=== PATIENT | male | born 1995 | race Caucasian/White ===

== ENCOUNTER 2017-06-09 11:32 | Emergency (ER) | payer MEDICAID, SELFPAY ==
[2017-06-09 11:34] VITALS: BP 150/95; PULSE 106; RESP 16; TEMP 36.7; O2SAT 97; BMI 28.4
--- NOTE | 2017-06-09 11:52 | EKG12_ITS ---
Test Reason : MENTAL HEALTH Blood Pressure : / mmHG Vent. Rate : 098 BPM Atrial Rate : 098 BPM P-R Int : 170 ms QRS Dur : 100 ms QT Int : 336 ms P-R-T Axes : 073 059 034 degrees QTc Int : 428 ms Normal sinus rhythm Normal ECG Confirmed by VINNY KAMARA, RITA ([id number]), news video editor GENE ARMSTRONG ([id number]) on 06/12/2017 3:29:45 PM Referred By: HAILY Confirmed By:RITA CASILLAS MD
[2017-06-09 12:16] LABS: Absolute Lymphocyte Count 1.87 X10^3/ul (0.83-4.51); Absolute Neutrophil Count 4.8 X10^3/uL (2.0-7.7); Basophil# 0.07 X10^3/uL; Basophil% 0.9 % (0-1); Eosinophil# 0.14 X10^3/uL; Eosinophils% 1.9 % (0-5); Hemoglobin 15.8 g/dl (13.0-16.5); Lymphocyte # 1.87 X10^3/ul (4.0); Lymphocyte % 25.1 % (19-41); Mean Corp Hgb Conc 35.9 g/gl (32-36); Mean Corpuscular Hgb 29.2 pg (27.0-32.0); Mean Corpuscular Volume 81.3 fL (80-94); Mean Platelet Vol. 9.4 fl (6.2-12.0); Monocyte% 8.1 % (0-10); Neutrophil # 4.76 X10^3/uL (2.7-7.7); Neutrophil % 63.9 % (47-70); POSITIVE COUNT NO; POSITIVE DIFFERENTIAL NO; POSITIVE MORPHOLOGY NO; Platelet Count 221 K/mm3 (150-450); RBC Distribution Width CV 12.4 % (11.6-14.6); RBC Distribution Width SD 37.3 fl (35.1-43.9); Red Blood Count 5.41 M/mm3 (4.6-6.2); White Blood Count 7.5 K/mm3 (4.4-11.0)
[2017-06-09 12:23] LABS: Anion Gap 7 (5-15); BUN 13 mg/dL (7-18); BUN/Creat Ratio 12.9 RATIO (10-20); Calcium,Total 8.5 mg/dL (8.5-10.1); Chloride 108 mmol/L (98-107); Creatinine, Serum 1.01 mg/dL (0.70-1.30); EST Glomerular Filtration Rate 99 mL/min (>60); Est Glom Filt Rate - Afr Amer 120 mL/min (>60); Estimated Creatinine Clearance 126.99 ml/min; Glucose 86 mg/dL (74-106); Potassium 3.5 mmol/L (3.5-5.1); Sodium Level 142 mmol/L (136-145)
[2017-06-09 12:26] LABS: Alcohol, Blood (Medical)-Serum < 3.0 mg/dL
[2017-06-09] MEDS: traZODone 50 MG Tablet 150 MG PO (12:26)
[2017-06-09] MEDS: QUEtiapine 100 MG Tablet 200 MG PO (12:26)
[2017-06-09 12:27] LABS: Amphetamine Urine VISTA POSITIVE (<1000 ng/mL); Barbiturate Urine VISTA NEGATIVE (< 200 ng/mL); Benzodiazepine Urine VISTA NEGATIVE (< 200 ng/mL); Cocaine Urine VISTA NEGATIVE (< 300 ng/mL); Ecstacy Urine VISTA NEGATIVE (< 500 ng/mL); Methadone Urine VISTA NEGATIVE (< 300 ng/mL); PCP Urine VISTA NEGATIVE (< 25 ng/mL); THC Urine VISTA POSITIVE (< 50 ng/mL); Vista UDS pH Range 5
--- NOTE | 2017-06-09 12:45 | PCA ---
called the counseling center
--- NOTE | 2017-06-09 13:04 | ED.DCSUM_ITS ---
- ER Visit Summary Date of Service: 06/09/17 Chief Complaint: [] Auditory hallucinations History of Present Illness: The patient is a 22 M [] with a past medical history of schizophrenia disorder reports that he is not having auditory and visual hallucinations after not taking his schizophrenia medications for the last month. Denies suicidal or homicidal ideation. He reports taking Seroquel and trazodone. Physical Examination: [] Afebrile, vital signs stable. 22-year-old male no acute distress. Cardiovascular exam is regular rate and rhythm. Lungs are clear to auscultation. Abdomen is soft and nontender. Test Results: [] Laboratory work returned normal. Alcohol level negative. Tox screen positive for amphetamines and THC. EKG shows normal sinus rhythm, rate of 98 without ischemia or ectopy. Emergency Department Course and Treatment: [] Patient evaluated and medically cleared for further psychiatric evaluation. Psychiatric liaison has been contacted for further treatment and disposition. Treatment Plan: [] Patient is medically cleared and we are awaiting psychiatric liaison evaluation. Addendum: Psychiatric liaison evaluated the patient and he reports suicidal ideation and a plan to hang himself. Disposition: [] Patient will be transferred to [facility]. Impression: [] Schizoaffective disorder Medication noncompliance Auditory hallucinations Suicidal ideation This note was generated with [employer] dictation software. It may contain incorrect words, spelling, and punctuation that were not noted in review of the chart prior to signing ED Disposition - Plan for ED Patient: Chief Complaint: Mental Health Referrals: Care Physician,No Primary [Primary Care Provider] -
[2017-06-09 13:39] VITALS: BP 142/71; PULSE 92; RESP 14; O2SAT 97
[2017-06-09 16:27] LABS: Bacteria 0 SEEN /hpf (None Seen); Red Blood Cells-Urine 0 SEEN /hpf (0-5); White Blood Cells 0 SEEN /hpf (0-5)
[2017-06-09 16:32] LABS: Color, Urine Yellow (Yellow); Glucose, Dipstick Normal (Normal); Ketone-Dipstick Negative (Negative); Leukocyte Esterase-Dipstick Negative /ul (Negative); Nitrite-Dipstick Negative (Negative); Occult Blood-Urine Negative /ul (Negative); Protein-Dipstick 15 mg/dl (Negative); Urine Bilirubin Dipstick Negative (Negative); Urine Clarity Clear (Clear); Urine Urobilinogen Normal (Normal)
[2017-06-09 16:39] LABS: Mucous, Urine 1+ /hpf (<or=2+); Squamous Epithelial Cells - UA 0-5 SEEN /hpf (0-5)
[2017-06-09 16:40] LABS: Hyaline Cast 0-5 SEEN /lpf (0-5)
[2017-06-09 16:50] LABS: ALB/GLOB Ratio 1.3 RATIO (0.9-2.4); AST(SGOT) 15 U/L (15-37); Alanine Aminotransfer ALT/SGPT 23 U/L (16-61); Albumin, Serum 4.3 g/dL (3.2-5.0); Alkaline Phosphatase 100 U/L (45-117); Globulin 3.3 g/dL (2.2-4.2); Protein, Total 7.6 g/dL (6.4-8.2)
[2017-06-09 17:54] VITALS: BP 130/67; PULSE 93; RESP 16; O2SAT 97
[2017-06-09 22:42] VITALS: PULSE 78; RESP 16; O2SAT 95
[2017-06-10 00:01] VITALS: BP 161/89; PULSE 70; RESP 18; O2SAT 97
[2017-06-10] MEDS: LORazepam 1 MG Tablet PO (01:23)
[2017-06-10 01:24] VITALS: PULSE 71; RESP 16; O2SAT 97
--- NOTE | 2017-06-10 01:25 | NURSING ---
pt lost wrist band unable to scan
[2017-06-10 03:44] VITALS: RESP 14
--- NOTE | 2017-06-10 04:14 | NURSING ---
I TOOK A CALL FROM [facility] AND THEY HAD SAID THAT THEY WOULD CALL AROUND 09:00-09:30 AM IF THEY PT IS ACCEPTED TO [facility] WENT TO LET THE PT KNOW THAT HE WOULD BE HERE UNTIL THE MORNING AND THAT [facility] WOULD CALL WITH ACCEPTANCE IN THE MORNING. THE PT WAS UNAWARE THAT HE WAS GOING TO [facility] AND THAT HE WAS PINK SLIPPED TO THERE. THE PT STARTED TO FREAK OUT AND THREATEN TO LEAVE AND LET HIM KNOW THAT HE COULD NOT DUE TO HIS PINK SLIP. ELIOT AND I DISCUSSED WITH THE PT HIS CONCERNS AND ATTEMPTED TO CALM HIM DOWN. CRISIS WAS HERE AT THE TIME AND REFUSED TO RETALK TO HIM SINCE A DIFFERENT STOCK SUPERVISOR PINK SLIPPED HIM TO [facility]. THE PT STATED THAT HE WAS NOT SUICIDAL AND WAS ONLY HERE FOR HIS MEDICATIONS. PT STATED THAT FOR THE FIRST PART OF HIS TIME HERE HE WAS NOT EVEN PUT IN A GOWN OR MENTIONED TO THE NURSE THAT HE WAS SUICIDAL. WHEN TALKING TO HIM AGAIN STATING THAT THERE WAS NOTHING ELSE WE COULD DO ON OUR PART, HE GOT VERY AGITATED/ TEARFUL. THERAPEUTICALLY TALKED WITH THE PT CALMED HIM DOWN, GAVE HIM A ATIVAN, AND HAS BEEN RESTING SINCE. PT STILL IS A FLIGHT RISK.
[2017-06-10 06:19] VITALS: RESP 14
[2017-06-10 07:24] VITALS: PULSE 79; RESP 18; O2SAT 100
--- NOTE | 2017-06-10 07:25 | ED.RN ---
THIS NURSE IN SPEAKING WITH THE PT. BREAKFAST TRAY GIVEN. CONFIRMED MEDICATIONS THAT HE STATES I TAKE THOSE AT BEDTIME. THIS NURSE INFORMED THE PT WE WOULD BE PAGING THE [facility]SEL[facility] AROUND 8AM TO SPEAK WITH THEM ABOUT THE PT. PT DENIES SUICIDAL IDEATION TO THIS NURSE
--- NOTE | 2017-06-10 08:02 | ED.RN ---
KEREN WITH CRISIS SPOKE WITH RN KERON; STATED SHE IS CHECKING STATUS WITH [facility]. WILL CALL US WITH AN UPDATE
[2017-06-10 08:16] VITALS: BP 142/79; PULSE 78; RESP 18; O2SAT 100
--- NOTE | 2017-06-10 08:32 | ED.RN ---
BELONGINGS, 1 BLACK BALL CAP, 1 BLACK LETHER JACKET, 1 BLACK SHIRT, 1 PAIR BLUE/BLACK PJ PANTS, 1 PAIR ARMY PANTS, 1 PAIR RED WING BOOTS SIZE 14
--- NOTE | 2017-06-10 08:49 | ED.RN ---
PT BELONGINGS SENT WITH TRANSPORT CREW
== END 2017-06-10 08:49 | disposition home or self-care (01) ==
PROVIDERS: Emergency Provider Emergency Medicine
DX: F25.9 Schizoaffective disorder, unspecified (principal); Z91.14 Patient's other noncompliance with medication regimen; R45.851 Suicidal ideations; Z72.0 Tobacco use
CPT/HCPCS: 36415; 80048; 80053; 80307; 80320; 81001; 85025; 93005; 99284; G0480

== ENCOUNTER 2017-07-29 11:18 | Inpatient (IN) | payer MEDICAID, SELFPAY ==
[2017-07-29] VITALS (13 sets, daily range): BP systolic 109–139; BP diastolic 69–109; PULSE 23–128; RESP 18–99; TEMP 36.7–37.2; O2SAT 96–99; BMI 33.5; BMI 29.9
--- NOTE | 2017-07-29 11:39 | CT_ITS ---
STUDY: CT BRAIN WITHOUT CONTRAST REASON FOR EXAM: Male, 22 years old. Confusion, overdose RADIATION DOSAGE (If Supplied By Facility): CTDIvol = ( 44.99 ) mGy, DLP = ( 1592.22 ) mGycm TECHNIQUE: Transaxial CT imaging of the brain was performed without administration of intravenous contrast material. Individualized dose optimization techniques were used for this CT. COMPARISON: 2011 FINDINGS: Normal soft tissue structures. Normal calvarium. Normal size ventricles and extra-axial spaces for the patient's age. Normal white matter tracts of the cerebral hemispheres. Normal basal ganglia and thalami. Normal brainstem. Normal cerebellum. There is no intracranial hemorrhage. There are no findings of an acute ischemic infarction. Normal visualized paranasal sinuses. CT/Brain/Head without Contrast IMPRESSION: Normal unenhanced CT scan of the brain. Electronically Signed: Bishop Duran MD at 12:18 EDT , Service support ,
[2017-07-29 12:13] LABS: Absolute Lymphocyte Count 2.04 X10^3/ul (0.83-4.51); Basophil# 0.03 X10^3/uL; Basophil% 0.2 % (0-1); Eosinophil# 0.01 X10^3/uL; Eosinophils% 0.1 % (0-5); Hematocrit 49.9 % (40-54); Hemoglobin 17.7 g/dl (13.0-16.5); Lymphocyte # 2.04 X10^3/ul (4.0); Lymphocyte % 11.8 % (19-41); Mean Corp Hgb Conc 35.5 g/gl (32-36); Mean Corpuscular Hgb 29.3 pg (27.0-32.0); Mean Corpuscular Volume 82.6 fL (80-94); Mean Platelet Vol. 9.4 fl (6.2-12.0); Monocyte# 1.17 X10^3/uL; Monocyte% 6.8 % (0-10); Neutrophil # 14.01 X10^3/uL (2.7-7.7); Neutrophil % 80.9 % (47-70); Platelet Count 238 K/mm3 (150-450); RBC Distribution Width CV 13.4 % (11.6-14.6); RBC Distribution Width SD 40.3 fl (35.1-43.9); Red Blood Count 6.04 M/mm3 (4.6-6.2); White Blood Count 17.3 K/mm3 (4.4-11.0)
[2017-07-29 12:19] LABS: Differential Indicated SCAN CRITERIA MET; POSITIVE COUNT NO; POSITIVE DIFFERENTIAL NO; POSITIVE MORPHOLOGY YES
[2017-07-29 12:43] LABS: ALB/GLOB Ratio 1.2 RATIO (0.9-2.4); AST(SGOT) 1251 U/L (15-37); Alanine Aminotransfer ALT/SGPT 284 U/L (16-61); Albumin, Serum 4.6 g/dL (3.2-5.0); Alkaline Phosphatase 124 U/L (45-117); Anion Gap 11 (5-15); BUN 30 mg/dL (7-18); BUN/Creat Ratio 19.2 RATIO (10-20); Calcium,Total 9.6 mg/dL (8.5-10.1); Chloride 108 mmol/L (98-107); Creatinine, Serum 1.56 mg/dL (0.70-1.30); EST Glomerular Filtration Rate 60 mL/min (>60); Est Glom Filt Rate - Afr Amer 72 mL/min (>60); Estimated Creatinine Clearance 79.78 ml/min; Glucose 98 mg/dL (74-106); Potassium 4.8 mmol/L (3.5-5.1); Protein, Total 8.6 g/dL (6.4-8.2); Sodium Level 139 mmol/L (136-145)
[2017-07-29 13:01] LABS: Amphetamine Urine VISTA POSITIVE (<1000 ng/mL); Barbiturate Urine VISTA NEGATIVE (< 200 ng/mL); Benzodiazepine Urine VISTA POSITIVE (< 200 ng/mL); Cocaine Urine VISTA NEGATIVE (< 300 ng/mL); Ecstacy Urine VISTA POSITIVE (< 500 ng/mL); Methadone Urine VISTA NEGATIVE (< 300 ng/mL); PCP Urine VISTA NEGATIVE (< 25 ng/mL); THC Urine VISTA POSITIVE (< 50 ng/mL); Vista UDS pH Range 5
[2017-07-29 13:04] LABS: Alcohol, Blood (Medical)-Serum < 3.0 mg/dL
--- NOTE | 2017-07-29 13:12 | EKG12_ITS ---
Test Reason : OD Blood Pressure : / mmHG Vent. Rate : 123 BPM Atrial Rate : 123 BPM P-R Int : 144 ms QRS Dur : 092 ms QT Int : 302 ms P-R-T Axes : 074 080 036 degrees QTc Int : 432 ms Sinus tachycardia Right atrial enlargement Borderline ECG Confirmed by REMY KAMARA, VIOLET ([id number]), newspaper editor managing GENE ARMSTRONG ([id number]) on 07/31/2017 9:08:57 AM Referred By: GENNA/NEELA Confirmed By:VIOLET ALBERTO MD
--- NOTE | 2017-07-29 13:20 | RAD_ITS ---
STUDY: X-RAY CHEST REASON FOR EXAM: Male, 22 years old. Possible overdose, patient unresponsive TECHNIQUE: Single AP portable view of the chest. COMPARISON: 2011 FINDINGS: EKG leads overlie the chest The lungs are clear and expanded. There is no demonstrated pleural abnormality. Normal size heart. Normal mediastinum and justen. Normal visualized pulmonary arteries. Normal visualized aortic arch and descending thoracic aorta. Normal visualized thoracic spine. Normal visualized ribs, clavicles, and shoulders. There is no demonstrated abnormality of the visualized soft tissue structures of the upper abdomen. RAD/Chest 1 View (Portable) IMPRESSION: Normal x-ray examination of the chest. Electronically Signed: Bishop Duran MD at 13:45 EDT , Service support ,
[2017-07-29 13:22] LABS: Acetaminophen (Tylenol) Level < 2.0 ug/mL (10.0-30.0)
[2017-07-29] MEDS: 0.9% Normal Saline 1,000 ML 999 ML IV ×3 (13:54→16:23)
[2017-07-29 14:29] LABS: Lactic Acid 1.1 mmol/L (0.4-2.0)
--- NOTE | 2017-07-29 15:38 | ED.RN ---
pt STATES HE'S HURTING EVERYWHERE. AWARE OF PAIN. PENDING ADMISSION. MOM IS AT BEDSIDE FEEDING PT.
--- NOTE | 2017-07-29 16:03 | ED.DCSUM_ITS ---
- ER Visit Summary Date of Service: 07/29/17 Chief Complaint: Seroquel overdose History of Present Illness: The patient is a 22 M who reports that he took 4-5 Seroquel yesterday. He states this was not in an attempt to harm himself. History is limited as the patient has rapid mumbling speech and is very difficult to understand. He does admit to auditory and visual hallucinations which are chronic. He denies recent illness such as fever chest pain shortness of breath vomiting diarrhea. He denies any pain currently. Family member also vocalize concern for stimulant abuse as he has a history of this. Physical Examination: Heart rate 128 vitals otherwise unremarkable Heart regular rhythm tachycardia Lungs are clear Abdomen soft Extremities nontender Alert he does not appear to have any focal or lateralizing neurological deficits Patient has rapid pressured mumbling speech Test Results: EKG shows sinus tachycardia at a rate of 123. His laboratory studies are notable for white blood cell count of 17.3. Creatinine is 1.56. Total bilirubin 1.2 and AST 1251. ALT 284. Alcohol negative. Salicylates and acetaminophen levels are normal. Urine drug screen positive for amphetamines, methamphetamine, benzodiazepines, cannabinoids. Lactic acid is normal. Creatinine kinase is pending at the time of this dictation but lab has stated that they have had to multiple dilutions and do not have an ETA yet on results. CT the head is normal. Chest x-ray is normal. Emergency Department Course and Treatment: I suspect the patient's cytosis is an acute phase reactant. Although we do not yet have a definite number we know it is significantly elevated on his creatinine kinase. He also has elevation in his creatinine. I suspect this is due to acute rhabdomyolysis likely related to drug abuse and methamphetamine abuse. He has been treated with aggressive IV fluids. He will require hospitalization. We will also likely need a right upper quadrant ultrasound in regards to his elevated LFTs Tylenol was normal. Treatment Plan: [] Disposition: Admit Impression: Rhabdomyolysis Polysubstance abuse Elevated LFTs This note was generated with [employer] dictation software. It may contain incorrect words, spelling, and punctuation that were not noted in review of the chart prior to signing ED Disposition - Plan for ED Patient: Chief Complaint: Overdose Referrals: Care Physician,No Primary [Primary Care Provider] -
--- NOTE | 2017-07-29 16:05 | ED.RN ---
ck [id number], md mar.
--- NOTE | 2017-07-29 16:35 | PCM.HP.STD ---
Problem List (1) Acute kidney injury Status: Acute (2) Drug overdose, multiple drugs Status: Acute (3) Rhabdomyolysis Status: Acute (4) Depression Status: Chronic (5) Schizophrenia Status: Chronic History of Present Illness Date of Admission: 07/29/17 Chief Complaint: Overdosing on Seroquel. The patient is a 22 year old M with past medical history as mentioned above presented to the emergency room because he took 4-5 pills of Seroquel yesterday. At this time, patient is alert and oriented ?3. He was talking super fast and he was not able to provide good history. He mentioned that he took 4-5 pills of Seroquel last night because he was trying to sleep. Patient has been mumbling incoherent words that is difficult to understand. He did mention that he has been having chronic hallucinations. His brother was at the bedside and he did mention that the patient has been using drugs including amphetamines and he has been smoking pot. At this time, patient denies any chest pain or shortness of breath. He reported vague mild lower abdominal pain. Denied nausea or vomiting. Denies fever chills. He had a history of schizophrenia and he has been on Seroquel. He has history of depression and he has been on trazodone. His brother mentioned that he has been using street drugs for quite some time but the patient himself denied using any drugs. In the emergency department, patient was tachycardic, blood pressure stable, afebrile and pulse ox maintained on room air. Routine blood work was remarkable for leukocytosis, BUN of 30, creatinine of 1.56. His LFT revealed elevated total bilirubin as well as liver transaminases and slightly elevated alkaline phosphatase. His total creatine phosphokinase is 37,057. Urine drug screen was positive for amphetamines, methamphetamines, benzodiazepines and cannabinoids. Blood alcohol level was less than 3. CT scan brain showed no acute findings. Chest x-ray showed no acute infiltrate, consolidation or effusion. EKG revealed sinus tachycardia, otherwise normal. He is being admitted for polysubstance overdose, rhabdomyolysis and acute kidney injury. Past Medical History Past Medical History (Chronic Problems): Chronic Problems Depression (Chronic) Schizophrenia (Chronic) Allergies Penicillins Allergy (Verified 07/29/17 11:24) Hives Sulfa (Sulfonamide Antibiotics) Allergy (Verified 07/29/17 11:24) Hives Home Medications: Ambulatory Orders Medication Instructions Recorded Quetiapine Fumarate [Seroquel] 800 mg PO QHS 07/29/17 Trazodone HCl 150 mg PO PRN PRN 07/29/17 Surgical History: no surgical history Psychiatric History: Depression, Schizophrenia Smoking Status: Current every day smoker Tobacco Use: Cigarettes Alcohol: None Drugs: Marijuana - *Family History Maternal History Items: No pertinent history Paternal History Items: No pertinent history Review of Systems Constitutional: Denies: Anorexia, Chills, Fever, Weakness Eyes: Denies: Blurred vision, Double vision, Redness HEENT: Denies: Difficulty Hearing, Ear Pain, Eye Pain, Nasal Congestion, Sore Throat Cardiovascular: Denies: Chest Pain, Chest Tightness, Edema, Palpitations, Syncope Respiratory: Denies: Cough, Pleuritic Pain, Shortness of Breath, Sputum production, Wheezing Gastrointestinal: Reports: Abdominal Pain. Denies: Constipation, Diarrhea, Nausea, Vomiting Genitourinary: Denies: Dysuria, Frequency, Hematuria Musculoskeletal: Denies: Arm Pain, Back Pain, Foot Pain Skin: Denies: Dryness, Rash Neurological: Denies: Balance problems, Change in Speech, Slurred speech, Confusion, Focal weakness, Headaches, Incoordination Psychiatric: Reports: Depression. Denies: Anxiety, Homicidal Ideations, Suicidal Ideations Endocrine: Denies: Change in Body Habitus, Polydipsia VTE Information - Inpt Only VTE Present on Admission: No VTE Mechan Device Prophylaxis: None VTE Pharm Prophylaxis ordered?: Yes Patient Problems: Active and Suspected Problems Acute kidney injury (Acute) Drug overdose, multiple drugs (Acute) Rhabdomyolysis (Acute) - Physical Exam General: Alert, Oriented x3, Cooperative, No apparent distress HEENT: Atraumatic, PERRLA, EOMI Oral: Moist Mucosa, No Gingival or Mucosal Lesions/ Ulcerations Neck: Supple, No JVD, Negative Carotid Bruits, Trachea Midline, Thyroid Normal Size and Texture Lungs: Clear to auscultation, No rhonchi, No wheeze, No rales, Diminished Cardiovascular: Regular rate, Regular Rhythm, Normal S1, Normal S2, No murmurs, PMI Normal, Tachycardic Abdomen: Bowel Sounds Present, Soft, Non Tender, Non-Distended, No Hepato-splenomegaly, Tender - No guarding or rigidity. Extremities: No clubbing, No cyanosis, No edema Skin: No rashes, No breakdown Lymphatic: No Cervical, Supraclavicular, or Inguinal Adenopathy Neurological: Cranial nerves II-XII grossly intact, Motor Exam 5/5 strength throughout Psych/Mental Status: Anxious, Impulsive, Alert and oriented to time, place, person, mood and affect Vital Signs Temp Pulse Resp BP Pulse Ox 98.1 F 116 H 19 H 109/90 H 97 07/29/17 11:21 07/29/17 16:25 07/29/17 16:25 07/29/17 16:25 07/29/17 16:25 Oxygen Flow Rate (L/min) 2 Oxygen Delivery Method Room Air Weight: 240 lb Body Mass Index (BMI) 33.5 Laboratory Tests Past 24 Hrs 07/29/17 07/29/17 07/29/17 12:01 12:01 12:01 WBC 17.3 H RBC 6.04 Hgb 17.7 H Hct 49.9 MCV 82.6 MCH 29.3 MCHC 35.5 RDW 13.4 RDW Differential 40.3 Plt Count 238 MPV 9.4 Immature Gran % (Auto) 0.200 Neut % (Auto) 80.9 H Lymph % (Auto) 11.8 L Long % (Auto) 6.8 Eos % (Auto) 0.1 Baso % (Auto) 0.2 Absolute Neuts (auto) 14.0 H Absolute Lymphs (auto) 2.04 Total Counted Not Reportable Sodium 139 Potassium 4.8 Chloride 108 H Carbon Dioxide 20.0 L Anion Gap 11 BUN 30 H Creatinine 1.56 H Estim Creat Clear Calc 79.78 Est GFR (MDRD) Af Amer 72 Est GFR (MDRD) Non-Af 60 BUN/Creatinine Ratio 19.2 Glucose 98 Lactic Acid Calcium 9.6 Total Bilirubin 1.20 H AST 1251 H ALT 284 H Alkaline Phosphatase 124 H Total Creatine Kinase Total Protein 8.6 H Albumin 4.6 Globulin 4.0 Albumin/Globulin Ratio 1.2 Salicylates Urine Opiates Screen Urine Methadone Screen Acetaminophen Ur Barbiturates Screen Ur Phencyclidine Scrn Ur Amphetamines Screen U Methamphetamin-MDMA U Benzodiazepines Scrn Urine Cocaine Screen U Cannabinoids Screen Ur Drug Screen Comment Ethyl Alcohol < 3.0 07/29/17 07/29/17 07/29/17 12:01 12:20 13:56 WBC RBC Hgb Hct MCV MCH MCHC RDW RDW Differential Plt Count MPV Immature Gran % (Auto) Neut % (Auto) Lymph % (Auto) Long % (Auto) Eos % (Auto) Baso % (Auto) Absolute Neuts (auto) Absolute Lymphs (auto) Total Counted Sodium Potassium Chloride Carbon Dioxide Anion Gap BUN Creatinine Estim Creat Clear Calc Est GFR (MDRD) Af Amer Est GFR (MDRD) Non-Af BUN/Creatinine Ratio Glucose Lactic Acid Calcium Total Bilirubin AST ALT Alkaline Phosphatase Total Creatine Kinase 87532 H Total Protein Albumin Globulin Albumin/Globulin Ratio Salicylates 2.0 L Urine Opiates Screen NEGATIVE Urine Methadone Screen NEGATIVE Acetaminophen < 2.0 L Ur Barbiturates Screen NEGATIVE Ur Phencyclidine Scrn NEGATIVE Ur Amphetamines Screen POSITIVE H U Methamphetamin-MDMA POSITIVE H U Benzodiazepines Scrn POSITIVE H Urine Cocaine Screen NEGATIVE U Cannabinoids Screen POSITIVE H Ur Drug Screen Comment Ethyl Alcohol 07/29/17 13:56 WBC RBC Hgb Hct MCV MCH MCHC RDW RDW Differential Plt Count MPV Immature Gran % (Auto) Neut % (Auto) Lymph % (Auto) Long % (Auto) Eos % (Auto) Baso % (Auto) Absolute Neuts (auto) Absolute Lymphs (auto) Total Counted Sodium Potassium Chloride Carbon Dioxide Anion Gap BUN Creatinine Estim Creat Clear Calc Est GFR (MDRD) Af Amer Est GFR (MDRD) Non-Af BUN/Creatinine Ratio Glucose Lactic Acid 1.1 Calcium Total Bilirubin AST ALT Alkaline Phosphatase Total Creatine Kinase Total Protein Albumin Globulin Albumin/Globulin Ratio Salicylates Urine Opiates Screen Urine Methadone Screen Acetaminophen Ur Barbiturates Screen Ur Phencyclidine Scrn Ur Amphetamines Screen U Methamphetamin-MDMA U Benzodiazepines Scrn Urine Cocaine Screen U Cannabinoids Screen Ur Drug Screen Comment Ethyl Alcohol Clinical Impression(s) from Imaging Studies Brain CT 07/29/17 11:39 IMPRESSION: Normal unenhanced CT scan of the brain. Electronically Signed: Bishop Duran MD at 12:18 EDT , Service support , Chest X-Ray 07/29/17 13:20 IMPRESSION: Normal x-ray examination of the chest. Electronically Signed: Bishop Duran MD at 13:45 EDT , Service support , Assessment/Plan Active and Suspected Problems Acute kidney injury (Acute) Drug overdose, multiple drugs (Acute) Rhabdomyolysis (Acute) This is a 22 years old male patient brought to the emergency room because he overdosed on Seroquel, found to have polysubstance overdose, abnormalities and acute kidney injury. #1 multidrug overdose/Seroquel overdose: Urine drug screen was positive for amphetamines, methamphetamines, benzodiazepines and cannabinoids. Patient is awake and oriented ?3, tachycardic, blood pressure stable and maintained pulse ox on room air. EKG revealed sinus tachycardia, otherwise normal. CT scan brain without acute findings. Plan: Admit to PCU, cardiac monitoring, one on one observation, IV Ativan as needed, IV fluids, repeat CBC and CMP tomorrow morning. #2 rhabdomyolysis: CPK was highly elevated on admission and Seroquel can cause rhabdomyolysis. Plan: Generous IV fluids for hydration, input output chart, Tylenol as needed for pain, IV antiemetics, repeat CMP and CPK tomorrow morning, PT OT evaluation and treatment. #3 acute kidney injury: Secondary to #2. Plan as above, IV fluids, input output chart, repeat CMP tomorrow morning. Baseline kidney function is normal. #4 elevated LFT: Unclear etiology but it could be due to Seroquel. Blood alcohol level was normal. Plan as above, repeat LFTs tomorrow morning. Patient denied any right upper quadrant abdominal pain. If his LFT did not improve with IV fluids and stopping Seroquel, may need to consider ultrasound gallbladder and liver. #5 schizophrenia/depression: Hold trazodone and Seroquel. Plan for evaluation by mental crisis when medically stable. #6 drug abuse: According to patient's brother, patient has been using amphetamines and smoking pot. The patient himself denied using drugs. Plan as above. #7 DVT prophylaxis: Subcu heparin. This note was generated with [employer] dictation software. It may contain incorrect words, spelling, and punctuation that were not noted in checking the note before signing. Code Visit Inpatient E&M: 75448 Init Hosp L3
--- NOTE | 2017-07-29 16:41 | HP.PCM_ITS ---
Problem List (1) Acute kidney injury Status: Acute (2) Drug overdose, multiple drugs Status: Acute (3) Rhabdomyolysis Status: Acute (4) Depression Status: Chronic (5) Schizophrenia Status: Chronic History of Present Illness Date of Admission: 07/29/17 Chief Complaint: Overdosing on Seroquel. The patient is a 22 year old M with past medical history as mentioned above presented to the emergency room because he took 4-5 pills of Seroquel yesterday. At this time, patient is alert and oriented ?3. He was talking super fast and he was not able to provide good history. He mentioned that he took 4-5 pills of Seroquel last night because he was trying to sleep. Patient has been mumbling incoherent words that is difficult to understand. He did mention that he has been having chronic hallucinations. His brother was at the bedside and he did mention that the patient has been using drugs including amphetamines and he has been smoking pot. At this time, patient denies any chest pain or shortness of breath. He reported vague mild lower abdominal pain. Denied nausea or vomiting. Denies fever chills. He had a history of schizophrenia and he has been on Seroquel. He has history of depression and he has been on trazodone. His brother mentioned that he has been using street drugs for quite some time but the patient himself denied using any drugs. In the emergency department, patient was tachycardic, blood pressure stable, afebrile and pulse ox maintained on room air. Routine blood work was remarkable for leukocytosis, BUN of 30, creatinine of 1.56. His LFT revealed elevated total bilirubin as well as liver transaminases and slightly elevated alkaline phosphatase. His total creatine phosphokinase is 37,057. Urine drug screen was positive for amphetamines, methamphetamines, benzodiazepines and cannabinoids. Blood alcohol level was less than 3. CT scan brain showed no acute findings. Chest x-ray showed no acute infiltrate, consolidation or effusion. EKG revealed sinus tachycardia, otherwise normal. He is being admitted for polysubstance overdose, rhabdomyolysis and acute kidney injury. Past Medical History Past Medical History (Chronic Problems): Chronic Problems Depression (Chronic) Schizophrenia (Chronic) Allergies Penicillins Allergy (Verified 07/29/17 11:24) Hives Sulfa (Sulfonamide Antibiotics) Allergy (Verified 07/29/17 11:24) Hives Home Medications: Ambulatory Orders Medication Instructions Recorded Quetiapine Fumarate [Seroquel] 800 mg PO QHS 07/29/17 Trazodone HCl 150 mg PO PRN PRN 07/29/17 Surgical History: no surgical history Psychiatric History: Depression, Schizophrenia Smoking Status: Current every day smoker Tobacco Use: Cigarettes Alcohol: None Drugs: Marijuana - *Family History Maternal History Items: No pertinent history Paternal History Items: No pertinent history Review of Systems Constitutional: Denies: Anorexia, Chills, Fever, Weakness Eyes: Denies: Blurred vision, Double vision, Redness HEENT: Denies: Difficulty Hearing, Ear Pain, Eye Pain, Nasal Congestion, Sore Throat Cardiovascular: Denies: Chest Pain, Chest Tightness, Edema, Palpitations, Syncope Respiratory: Denies: Cough, Pleuritic Pain, Shortness of Breath, Sputum production, Wheezing Gastrointestinal: Reports: Abdominal Pain. Denies: Constipation, Diarrhea, Nausea, Vomiting Genitourinary: Denies: Dysuria, Frequency, Hematuria Musculoskeletal: Denies: Arm Pain, Back Pain, Foot Pain Skin: Denies: Dryness, Rash Neurological: Denies: Balance problems, Change in Speech, Slurred speech, Confusion, Focal weakness, Headaches, Incoordination Psychiatric: Reports: Depression. Denies: Anxiety, Homicidal Ideations, Suicidal Ideations Endocrine: Denies: Change in Body Habitus, Polydipsia VTE Information - Inpt Only VTE Present on Admission: No VTE Mechan Device Prophylaxis: None VTE Pharm Prophylaxis ordered?: Yes Patient Problems: Active and Suspected Problems Acute kidney injury (Acute) Drug overdose, multiple drugs (Acute) Rhabdomyolysis (Acute) - Physical Exam General: Alert, Oriented x3, Cooperative, No apparent distress HEENT: Atraumatic, PERRLA, EOMI Oral: Moist Mucosa, No Gingival or Mucosal Lesions/ Ulcerations Neck: Supple, No JVD, Negative Carotid Bruits, Trachea Midline, Thyroid Normal Size and Texture Lungs: Clear to auscultation, No rhonchi, No wheeze, No rales, Diminished Cardiovascular: Regular rate, Regular Rhythm, Normal S1, Normal S2, No murmurs, PMI Normal, Tachycardic Abdomen: Bowel Sounds Present, Soft, Non Tender, Non-Distended, No Hepato- splenomegaly, Tender - No guarding or rigidity. Extremities: No clubbing, No cyanosis, No edema Skin: No rashes, No breakdown Lymphatic: No Cervical, Supraclavicular, or Inguinal Adenopathy Neurological: Cranial nerves II-XII grossly intact, Motor Exam 5/5 strength throughout Psych/Mental Status: Anxious, Impulsive, Alert and oriented to time, place, person, mood and affect Vital Signs Temp Pulse Resp BP Pulse Ox 98.1 F 116 H 19 H 109/90 H 97 07/29/17 11:21 07/29/17 16:25 07/29/17 16:25 07/29/17 16:25 07/29/17 16:25 Oxygen Flow Rate (L/min) 2 Oxygen Delivery Method Room Air Weight: 240 lb Body Mass Index (BMI) 33.5 Laboratory Tests Past 24 Hrs 07/29/17 07/29/17 07/29/17 12:01 12:01 12:01 WBC 17.3 H RBC 6.04 Hgb 17.7 H Hct 49.9 MCV 82.6 MCH 29.3 MCHC 35.5 RDW 13.4 RDW Differential 40.3 Plt Count 238 MPV 9.4 Immature Gran % (Auto) 0.200 Neut % (Auto) 80.9 H Lymph % (Auto) 11.8 L [place] % (Auto) 6.8 Eos % (Auto) 0.1 Baso % (Auto) 0.2 Absolute Neuts (auto) 14.0 H Absolute Lymphs (auto) 2.04 Total Counted Not Reportable Sodium 139 Potassium 4.8 Chloride 108 H Carbon Dioxide 20.0 L Anion Gap 11 BUN 30 H Creatinine 1.56 H Estim Creat Clear Calc 79.78 Est GFR (MDRD) Af Amer 72 Est GFR (MDRD) Non-Af 60 BUN/Creatinine Ratio 19.2 Glucose 98 Lactic Acid Calcium 9.6 Total Bilirubin 1.20 H AST 1251 H ALT 284 H Alkaline Phosphatase 124 H Total Creatine Kinase Total Protein 8.6 H Albumin 4.6 Globulin 4.0 Albumin/Globulin Ratio 1.2 Salicylates Urine Opiates Screen Urine Methadone Screen Acetaminophen Ur Barbiturates Screen Ur Phencyclidine Scrn Ur Amphetamines Screen U Methamphetamin-MDMA U Benzodiazepines Scrn Urine Cocaine Screen U Cannabinoids Screen Ur Drug Screen Comment Ethyl Alcohol < 3.0 07/29/17 07/29/17 07/29/17 12:01 12:20 13:56 WBC RBC Hgb Hct MCV MCH MCHC RDW RDW Differential Plt Count MPV Immature Gran % (Auto) Neut % (Auto) Lymph % (Auto) [place] % (Auto) Eos % (Auto) Baso % (Auto) Absolute Neuts (auto) Absolute Lymphs (auto) Total Counted Sodium Potassium Chloride Carbon Dioxide Anion Gap BUN Creatinine Estim Creat Clear Calc Est GFR (MDRD) Af Amer Est GFR (MDRD) Non-Af BUN/Creatinine Ratio Glucose Lactic Acid Calcium Total Bilirubin AST ALT Alkaline Phosphatase Total Creatine Kinase 48878 H Total Protein Albumin Globulin Albumin/Globulin Ratio Salicylates 2.0 L Urine Opiates Screen NEGATIVE Urine Methadone Screen NEGATIVE Acetaminophen < 2.0 L Ur Barbiturates Screen NEGATIVE Ur Phencyclidine Scrn NEGATIVE Ur Amphetamines Screen POSITIVE H U Methamphetamin-MDMA POSITIVE H U Benzodiazepines Scrn POSITIVE H Urine Cocaine Screen NEGATIVE U Cannabinoids Screen POSITIVE H Ur Drug Screen Comment Ethyl Alcohol 07/29/17 13:56 WBC RBC Hgb Hct MCV MCH MCHC RDW RDW Differential Plt Count MPV Immature Gran % (Auto) Neut % (Auto) Lymph % (Auto) [place] % (Auto) Eos % (Auto) Baso % (Auto) Absolute Neuts (auto) Absolute Lymphs (auto) Total Counted Sodium Potassium Chloride Carbon Dioxide Anion Gap BUN Creatinine Estim Creat Clear Calc Est GFR (MDRD) Af Amer Est GFR (MDRD) Non-Af BUN/Creatinine Ratio Glucose Lactic Acid 1.1 Calcium Total Bilirubin AST ALT Alkaline Phosphatase Total Creatine Kinase Total Protein Albumin Globulin Albumin/Globulin Ratio Salicylates Urine Opiates Screen Urine Methadone Screen Acetaminophen Ur Barbiturates Screen Ur Phencyclidine Scrn Ur Amphetamines Screen U Methamphetamin-MDMA U Benzodiazepines Scrn Urine Cocaine Screen U Cannabinoids Screen Ur Drug Screen Comment Ethyl Alcohol Clinical Impression(s) from Imaging Studies Brain CT 07/29/17 11:39 IMPRESSION: Normal unenhanced CT scan of the brain. Electronically Signed: Bishop Duran MD at 12:18 EDT , Service support , Chest X-Ray 07/29/17 13:20 IMPRESSION: Normal x-ray examination of the chest. Electronically Signed: Bishop Duran MD at 13:45 EDT , Service support , Assessment/Plan Active and Suspected Problems Acute kidney injury (Acute) Drug overdose, multiple drugs (Acute) Rhabdomyolysis (Acute) This is a 22 years old male patient brought to the emergency room because he overdosed on Seroquel, found to have polysubstance overdose, abnormalities and acute kidney injury. #1 multidrug overdose/Seroquel overdose: Urine drug screen was positive for amphetamines, methamphetamines, benzodiazepines and cannabinoids. Patient is awake and oriented ?3, tachycardic, blood pressure stable and maintained pulse ox on room air. EKG revealed sinus tachycardia, otherwise normal. CT scan brain without acute findings. Plan: Admit to PCU, cardiac monitoring, one on one observation, IV Ativan as needed, IV fluids, repeat CBC and CMP tomorrow morning. #2 rhabdomyolysis: CPK was highly elevated on admission and Seroquel can cause rhabdomyolysis. Plan: Generous IV fluids for hydration, input output chart, Tylenol as needed for pain, IV antiemetics, repeat CMP and CPK tomorrow morning , PT OT evaluation and treatment. #3 acute kidney injury: Secondary to #2. Plan as above, IV fluids, input output chart, repeat CMP tomorrow morning. Baseline kidney function is normal. #4 elevated LFT: Unclear etiology but it could be due to Seroquel. Blood alcohol level was normal. Plan as above, repeat LFTs tomorrow morning. Patient denied any right upper quadrant abdominal pain. If his LFT did not improve with IV fluids and stopping Seroquel, may need to consider ultrasound gallbladder and liver. #5 schizophrenia/depression: Hold trazodone and Seroquel. Plan for evaluation by mental crisis when medically stable. #6 drug abuse: According to patient's brother, patient has been using amphetamines and smoking pot. The patient himself denied using drugs. Plan as above. #7 DVT prophylaxis: Subcu heparin. This note was generated with [employer] dictation software. It may contain incorrect words, spelling, and punctuation that were not noted in checking the note before signing. Code Visit Inpatient E&M: 23278 Init Hosp L3
--- NOTE | 2017-07-29 18:36 | ED.RN ---
PT found sitting at the end of bed with IV pulled. Tubing still in arm, IV was removed at hub. IV reconnected. Blood spatter all over room. PT cleaned as much as possible, new gown etc. Room spot cleaned. PT stated he needed to have BM and was trying to use restroom.
--- NOTE | 2017-07-29 19:09 | NURSING ---
Pt able to answer some questions understandably, like usual weight and height. Pt mumbles a lot of words and laughs. Oriented pt to call light and to use call light for assistance.
[2017-07-29 19:15] LABS: International Normalized Ratio 1.2; Prothrombin Time (Protime)PT. 14.8 SECONDS (11.7-14.9)
[2017-07-29] MEDS: 0.9% Normal Saline 1,000 ML 150 ML IV (19:49)
[2017-07-29] MEDS: Heparin Injection (Vial) 5,000 UNIT/ML VIAL 5000 UNIT SC (21:38)
[2017-07-29] MEDS: LORazepam 2 MG/ML Syringe 1 MG IV (22:25)
[2017-07-29] MEDS: 0.9% NaCl Peripheral Flush Adult/Peds IV (22:26)
[2017-07-29] MEDS: Acetaminophen 325 MG Tablet 650 MG PO (22:28)
[2017-07-30] VITALS (13 sets, daily range): BP systolic 126–142; BP diastolic 61–81; PULSE 94–113; RESP 16–18; TEMP 36.8–37.7; O2SAT 95–98
[2017-07-30] MEDS: 0.9% Normal Saline 1,000 ML 150 ML IV ×4 (02:28→21:55)
[2017-07-30 07:04] LABS: Absolute Lymphocyte Count 1.56 X10^3/ul (0.83-4.51); Absolute Neutrophil Count 6.3 X10^3/uL (2.0-7.7); Basophil# 0.04 X10^3/uL; Basophil% 0.4 % (0-1); Eosinophil# 0.18 X10^3/uL; Eosinophils% 1.9 % (0-5); Hematocrit 41.8 % (40-54); Hemoglobin 14.1 g/dl (13.0-16.5); Lymphocyte # 1.56 X10^3/ul (4.0); Lymphocyte % 16.4 % (19-41); Mean Corp Hgb Conc 33.7 g/gl (32-36); Mean Corpuscular Hgb 28.5 pg (27.0-32.0); Mean Corpuscular Volume 84.6 fL (80-94); Mean Platelet Vol. 9.2 fl (6.2-12.0); Monocyte# 1.43 X10^3/uL; Neutrophil # 6.31 X10^3/uL (2.7-7.7); Neutrophil % 66.2 % (47-70); Platelet Count 187 K/mm3 (150-450); RBC Distribution Width CV 13.5 % (11.6-14.6); RBC Distribution Width SD 41.7 fl (35.1-43.9); Red Blood Count 4.94 M/mm3 (4.6-6.2); White Blood Count 9.5 K/mm3 (4.4-11.0)
[2017-07-30 07:24] LABS: POSITIVE COUNT NO; POSITIVE DIFFERENTIAL NO; POSITIVE MORPHOLOGY NO
[2017-07-30 08:41] LABS: ALB/GLOB Ratio 1.1 RATIO (0.9-2.4); AST(SGOT) 880 U/L (15-37); Alanine Aminotransfer ALT/SGPT 248 U/L (16-61); Albumin, Serum 3.2 g/dL (3.2-5.0); Alkaline Phosphatase 87 U/L (45-117); Anion Gap 9 (5-15); BUN 24 mg/dL (7-18); BUN/Creat Ratio 23.5 RATIO (10-20); CPK Total, Creatine Kinase 32947 U/L (39-308); Calcium,Total 8.1 mg/dL (8.5-10.1); Chloride 109 mmol/L (98-107); Creatinine, Serum 1.02 mg/dL (0.70-1.30); EST Glomerular Filtration Rate 98 mL/min (>60); Est Glom Filt Rate - Afr Amer 118 mL/min (>60); Estimated Creatinine Clearance 118.29 ml/min; Glucose 87 mg/dL (74-106); Potassium 4.1 mmol/L (3.5-5.1); Protein, Total 6.2 g/dL (6.4-8.2); Sodium Level 142 mmol/L (136-145)
[2017-07-30] MEDS: Heparin Injection (Vial) 5,000 UNIT/ML VIAL 5000 UNIT SC ×2 (09:51→21:55)
--- NOTE | 2017-07-30 13:05 | PCM.PN.HOSP ---
Patient Problems: Active and Suspected Problems Acute kidney injury (Acute) Drug overdose, multiple drugs (Acute) Rhabdomyolysis (Acute) Subjective: CC: Drug overdose, rhabdomyolysis. Objective: He is a 22 years old male patient with polysubstance overdose, also found to have acute kidney injury and rhabdomyolysis. He is receiving IV fluids no acute events reported overnight. Vitals/I&O's: Vital Signs Temp Pulse Resp BP Pulse Ox 98.5 F 108 H 16 138/67 H 98 07/30/17 09:54 07/30/17 10:35 07/30/17 09:54 07/30/17 09:54 07/30/17 09:54 Oxygen Delivery Method Room Air Weight: 97 kg Body Mass Index (BMI) 29.9 Intake and Output for Last 24 Hours 07/28/17 07/29/17 07/30/17 23:59 23:59 23:59 Intake Total 3277 / 3277 Output Total 250 / 250 500 / 500 Balance -250 / -250 2777 / 2777 General: Alert, Oriented x3 HEENT: Atraumatic Oral: Moist Mucosa Neck: Supple Lungs: Clear to auscultation Cardiovascular: Regular rate, Normal S1, No murmurs Abdomen: Bowel Sounds Present, Soft Extremities: No clubbing Skin: No rashes Neurological: Cranial nerves II-XII grossly intact, Motor Exam 5/5 strength throughout Psych/Mental Status: Normal Affect Laboratory Results 07/30/17 06:15: WBC 9.5, RBC 4.94, Hgb 14.1, Hct 41.8, MCV 84.6, MCH 28.5, MCHC 33.7, RDW 13.5, RDW Differential 41.7, Plt Count 187, MPV 9.2, Immature Gran % (Auto) 0.100, Neut % (Auto) 66.2, Lymph % (Auto) 16.4 L, [place] % (Auto) 15.0 H, Eos % (Auto) 1.9, Baso % (Auto) 0.4, Absolute Neuts (auto) 6.3, Absolute Lymphs (auto) 1.56, Total Counted Not Reportable 07/30/17 06:15: Sodium 142, Potassium 4.1, Chloride 109 H, Carbon Dioxide 24.0, Anion Gap 9, BUN 24 H, Creatinine 1.02, Estim Creat Clear Calc 118.29, Est GFR (MDRD) Af Amer 118, Est GFR (MDRD) Non-Af 98, BUN/Creatinine Ratio 23.5 H, Glucose 87, Calcium 8.1 L, Total Bilirubin 1.10 H, AST 880 H, ALT 248 H, Alkaline Phosphatase 87, Total Creatine Kinase 35689 H, Total Protein 6.2 L, Albumin 3.2, Globulin 3.0, Albumin/Globulin Ratio 1.1 Current Medications Acetaminophen (Tylenol) 650 mg PO Q6H PRN PRN PRN Reason: Pain, headache, fever Last Admin: 07/29/17 22:28 Dose: 650 mg Heparin Sodium (Porcine) (Heparin Na) 5,000 unit SC Q12 [facility] [place] Last Admin: 07/30/17 09:51 Dose: 5,000 units Sodium Chloride () 1,000 mls @ 150 mls/hr IV .Q6H40M [facility] [place] Last Admin: 07/30/17 08:43 Dose: 150 mls/hr Sodium Chloride () 250 mls @ 15 mls/hr IV .[id number] PRN PRN Reason: SALINE FLUSH Lorazepam (Ativan) 1 mg IV Q8H PRN PRN PRN Reason: AGITATION Last Admin: 07/29/17 22:25 Dose: 1 mg Magnesium Hydroxide (Milk Of Magnesia) 30 ml PO DAILY PRN PRN Reason: Constipation Ondansetron HCl (Zofran) 4 mg IV Q8H PRN PRN PRN Reason: NAUSEA/VOMITING Sodium Chloride () 5 - 30 ml IV UD PRN PRN Reason: SALINE FLUSH Last Admin: 07/29/17 22:26 Dose: 10 ml Medical Necessity - Tobacco Use Smoking Status: Current every day smoker Tobacco Use: Cigarettes Assessment/Plan Active and Suspected Problems Acute kidney injury (Acute) Drug overdose, multiple drugs (Acute) Rhabdomyolysis (Acute) 1 . Multidrug overdose; we will continue to monitor the patient closely for toxic drug and withdrawal effects. 2 rhabdomyolysis; continue IV hydration and check CPK daily. 3. Acute kidney injury ; we will continue IV hydration and avoid potentially nephrotoxic agents. 4 elevated transaminases; these high levels are consistent with shock liver and is improving with IV hydration. We would avoid potential hepatotoxic agents, will check daily LFTs. 5. schizophrenia/depression; he reports no suicidal ideation today, will enlist behavioral health input when he is medically stable. 6. Opiate use disorder; he is recommended to refrain from illicit drugs. 7. Subcutaneous heparin for DVT prophylaxis. Code Visit Inpatient E&M: 66291 Subs Hosp L3
--- NOTE | 2017-07-30 16:21 | CHAPLAIN ---
patient was sleeping and I did not disturb him
[2017-07-30] MEDS: Acetaminophen 325 MG Tablet 650 MG PO (16:47)
[2017-07-31] VITALS (9 sets, daily range): BP systolic 123–135; BP diastolic 67–74; PULSE 84–95; RESP 16; TEMP 37–37.2; O2SAT 95–98
[2017-07-31] MEDS: 0.9% Normal Saline 1,000 ML 150 ML IV ×3 (04:36→17:46)
[2017-07-31 07:40] LABS: Anion Gap 7 (5-15); BUN 17 mg/dL (7-18); BUN/Creat Ratio 20.3 RATIO (10-20); CPK Total, Creatine Kinase 18554 U/L (39-308); Calcium,Total 7.6 mg/dL (8.5-10.1); Chloride 107 mmol/L (98-107); Creatinine, Serum 0.84 mg/dL (0.70-1.30); EST Glomerular Filtration Rate 123 mL/min (>60); Est Glom Filt Rate - Afr Amer 148 mL/min (>60); Estimated Creatinine Clearance 148.16 ml/min; Glucose 120 mg/dL (74-106); Potassium 3.4 mmol/L (3.5-5.1); Sodium Level 140 mmol/L (136-145)
--- NOTE | 2017-07-31 09:05 | CASEMGMT ---
SW briefly spoke with patient. He was just waking up. SW offered to come back later and he said it is fine. SW confirmed he is active with [facility] for Psychiatric services only. Patient said he has a good support system. He said he has not been using any illegal substances. He denies he was trying to complete suicide. Patient was not truly engaged in conversation. He would benefit from a visit with crisis to make sure he doesn't need connected with additional services at [facility]. Mayra CORREA MSW
[2017-07-31] MEDS: Heparin Injection (Vial) 5,000 UNIT/ML VIAL 5000 UNIT SC ×2 (09:32→22:17)
--- NOTE | 2017-07-31 15:47 | PN_ITS ---
Patient Problems: Active and Suspected Problems Acute kidney injury (Acute) Drug overdose, multiple drugs (Acute) Rhabdomyolysis (Acute) Subjective: Multidrug overdose Objective: Patient is much awake today he is alert and oriented to time place and person he answered questions appropriately. He denies any suicidal ideation or that this drug OD was not a suicide attempt. Vitals/I&O's: Vital Signs Temp Pulse Resp BP Pulse Ox 98.6 F 84 16 123/67 H 95 07/31/17 13:28 07/31/17 13:28 07/31/17 13:28 07/31/17 13:28 07/31/17 13:28 Oxygen Delivery Method Room Air Weight: 97 kg Body Mass Index (BMI) 29.9 Intake and Output for Last 24 Hours 07/29/17 07/30/17 07/31/17 23:59 23:59 23:59 Intake Total 5010 / 5010 4095 / 4095 Output Total 250 / 250 1805 / 1805 2300 / 2300 Balance -250 / -250 3205 / 3205 1795 / 1795 General: Alert, Oriented x3 Oral: Moist Mucosa Neck: Supple, No JVD Lungs: Clear to auscultation Cardiovascular: Regular rate, Normal S1, Normal S2 Abdomen: Bowel Sounds Present, Non Tender, Non-Distended Extremities: No edema Laboratory Results 07/31/17 06:05: Sodium 140, Potassium 3.4 L, Chloride 107, Carbon Dioxide 26.0, Anion Gap 7, BUN 17, Creatinine 0.84, Estim Creat Clear Calc 148.16, Est GFR ( MDRD) Af Amer 148, Est GFR (MDRD) Non-Af 123, BUN/Creatinine Ratio 20.3 H, Glucose 120 H, Calcium 7.6 L, Total Creatine Kinase 81698 H Current Medications Acetaminophen (Tylenol) 650 mg PO Q6H PRN PRN PRN Reason: Pain, headache, fever Last Admin: 07/30/17 16:47 Dose: 650 mg Heparin Sodium (Porcine) (Heparin Na) 5,000 unit SC Q12 [facility] Last Admin: 07/31/17 09:32 Dose: 5,000 units Sodium Chloride () 1,000 mls @ 150 mls/hr IV .Q6H40M [facility] Last Admin: 07/31/17 11:15 Dose: 150 mls/hr Sodium Chloride () 250 mls @ 15 mls/hr IV .[id number] PRN PRN Reason: SALINE FLUSH Lorazepam (Ativan) 1 mg IV Q8H PRN PRN PRN Reason: AGITATION Last Admin: 07/29/17 22:25 Dose: 1 mg Magnesium Hydroxide (Milk Of Magnesia) 30 ml PO DAILY PRN PRN Reason: Constipation Ondansetron HCl (Zofran) 4 mg IV Q8H PRN PRN PRN Reason: NAUSEA/VOMITING Sodium Chloride () 5 - 30 ml IV UD PRN PRN Reason: SALINE FLUSH Last Admin: 07/29/17 22:26 Dose: 10 ml Medical Necessity - Tobacco Use Smoking Status: Current every day smoker Tobacco Use: Cigarettes Assessment/Plan Active and Suspected Problems Acute kidney injury (Acute) Drug overdose, multiple drugs (Acute) Rhabdomyolysis (Acute) 1 . Multidrug overdose; we will continue to monitor the patient closely for toxic drug and withdrawal effects. He reports to me that this was not a suicidal attempt. 2 rhabdomyolysis; continue IV hydration and check CPK daily. 3. Acute kidney injury ; we will continue IV hydration and avoid potentially nephrotoxic agents. 4 elevated transaminases; these high levels are consistent with shock liver and is improving with IV hydration. We would avoid potential hepatotoxic agents, will check daily LFTs. 5. schizophrenia/depression; he reports no suicidal ideation today, will enlist behavioral health input when he is medically stable. 6. Opiate use disorder; he is recommended to refrain from illicit drugs. 7. Subcutaneous heparin for DVT prophylaxis.
[2017-08-01] MEDS: 0.9% Normal Saline 1,000 ML 150 ML IV ×2 (00:28→07:06)
[2017-08-01 00:30] VITALS: BP 135/69; PULSE 90; RESP 18; TEMP 37.1; O2SAT 97
[2017-08-01 06:00] VITALS: BP 143/76; PULSE 91; RESP 16; TEMP 37.2; O2SAT 98
[2017-08-01 07:00] VITALS: O2SAT 96
[2017-08-01 07:32] LABS: AST(SGOT) 397 U/L (15-37); Alanine Aminotransfer ALT/SGPT 193 U/L (16-61); Albumin, Serum 2.6 g/dL (3.2-5.0); Alkaline Phosphatase 71 U/L (45-117); Anion Gap 8 (5-15); BUN 13 mg/dL (7-18); BUN/Creat Ratio 17.4 RATIO (10-20); Bilirubin, Direct 0.12 mg/dL (0.00-0.30); CPK Total, Creatine Kinase 13654 U/L (39-308); Calcium,Total 7.8 mg/dL (8.5-10.1); Chloride 107 mmol/L (98-107); Creatinine, Serum 0.74 mg/dL (0.70-1.30); EST Glomerular Filtration Rate 140 mL/min (>60); Est Glom Filt Rate - Afr Amer 170 mL/min (>60); Estimated Creatinine Clearance 168.18 ml/min; Globulin 3.3 g/dL (2.2-4.2); Glucose 89 mg/dL (74-106); Potassium 3.4 mmol/L (3.5-5.1); Protein, Total 5.9 g/dL (6.4-8.2); Sodium Level 143 mmol/L (136-145)
[2017-08-01] MEDS: Acetaminophen 325 MG Tablet 650 MG PO (08:47)
[2017-08-01] MEDS: Heparin Injection (Vial) 5,000 UNIT/ML VIAL 5000 UNIT SC (10:42)
--- NOTE | 2017-08-01 11:30 | NURSING ---
This nurse notified Dr. Harry that the patient wants to leave AMA. Dr. Harry and this nurse went to the patient bedside. Dr. Harry explained to the patient why he should stay in the hospital at least one more day and the risks of leaving AMA. The patient agreed to stay at this time.
--- NOTE | 2017-08-01 11:50 | NURSING ---
This nurse notified Dr. Harry that the patient is insisting again that he leave AMA. Dr. Harry and this nurse again went to the patients bedside. Dr. Harry explained to the patient again the risks of leaving AMA. The patient again insisted that he is leaving AMA.
--- NOTE | 2017-08-02 15:25 | PCM.DC.SUM ---
Discharge Date and Diagnosis Date of Admission: 07/29/17 Date of Discharge: 08/01/17 - Secondary Discharge Diagnosis Chronic Problems Depression (Chronic) Schizophrenia (Chronic) Hospital Course and Treatment Summary of Care Provided: This is a 22-year-old male with history of multidrug abuse who was found down and sent to the emergency room. Further workup revealed the patient had acute kidney injury and rhabdomyolysis . He was admitted to the progressive care unit for close monitoring of toxic duct effects and withdrawal effects. He was started on aggressive IV fluids for rhabdomyolysis and acute kidney injury. His CPK and renal parameters improved, commended for the treatment with IV fluids until CPK levels normalize but he signed out AGAINST MEDICAL ADVICE. Discharge Diet: No Restrictions Home Medications: Medications to take at Discharge Quetiapine Fumarate [Seroquel] 800 mg PO QHS 07/29/17 Trazodone HCl 150 mg PO PRN PRN 07/29/17 Primary Care Physician: Care Physician,No Primary [Primary Care Provider] - Medical Necessity - Tobacco Use Smoking Status: Current every day smoker Tobacco Use: Cigarettes Meaningful Use Info Meaningful Use Diagnoses (Choose all that apply): None applicable Code Visit Inpatient E&M: 94570 Disch Hosp
== END 2017-08-01 11:55 | disposition left against medical advice (07) | DRG 316 ==
LOC: ED 16:08 → PCU 16:56
PROVIDERS: Admitting Provider Hospitalist; Emergency Provider Emergency Medicine; Visit Provider Internal Medicine
DX: N17.9 Acute kidney failure, unspecified (principal); F20.9 Schizophrenia, unspecified; F12.90 Cannabis use, unspecified, uncomplicated; F32.9 Major depressive disorder, single episode, unspecified; M62.82 Rhabdomyolysis; T43.591A Poisoning by other antipsychotics and neuroleptics, accidental (unintentional), initial encounter; Y92.9 Unspecified place or not applicable
CPT/HCPCS: 36415; 70450; 71045; 80048; 80053; 80076; 80307; 80320; 80329; 82550; 83605; 85025; 85610; 93005; 97162; 97166; 97802; 99285; J7030; A4216; G0480

== ENCOUNTER 2018-03-11 09:21 | Emergency (ER) | payer MEDICAID, SELFPAY ==
[2018-03-11 09:23] VITALS: BP 137/73; PULSE 102; RESP 18; TEMP 36.5; O2SAT 99; BMI 28.5
--- NOTE | 2018-03-11 09:57 | ED.DCSUM_ITS ---
- ER Visit Summary Date of Service: 03/11/18 Chief Complaint: Suicidal ideation History of Present Illness: The patient is a 23 M with a history of schizoaffective disorder. He follows with a care center. He has had increasing thoughts of suicide over the past week or so. His symptoms were worse today. He thought about hanging himself. He did not attempt to hang himself or hurt himself. Denies any ingestions. Denies any complaints of pain or any medical complaints. He had similar symptoms in the past and has been admitted for suicidal ideation. Physical Examination: Afebrile and vital signs unremarkable except for heart rate of 102. He appears nontoxic and in no acute distress. Alert and oriented. Depressed mood and flat affect. Poor eye contact. Heart regular. No respiratory distress. Abdomen soft. Moves all extremities. Test Results: Laboratory studies, alcohol level, and tox screen are pending. Emergency Department Course and Treatment: Patient seen immediately. He had suicide precautions. Will perform medical clearance. Will contact the crisis center after medical clearance for placement. Treated with Kdur for K of 3.0. Otherwise his workup was unremarkable. Patient is medically cleared for admission to a psychiatric unit. Treatment Plan: As above Disposition: Transfer pending crisis evaluation Impression: 1. Suicidal ideation 2. Hypokalemia This note was generated with [employer] dictation software. It may contain incorrect words, spelling, and punctuation that were not noted in review of the chart prior to signing ED Disposition - Plan for ED Patient: Chief Complaint: Mental Health Referrals: Care Physician,No Primary [Primary Care Provider] -
[2018-03-11 10:02] LABS: Absolute Lymphocyte Count 2.96 X10^3/ul (0.83-4.51); Absolute Neutrophil Count 3.9 X10^3/uL (2.0-7.7); Basophil# 0.04 X10^3/uL; Basophil% 0.5 % (0-1); Eosinophil# 0.29 X10^3/uL; Eosinophils% 3.6 % (0-5); Hematocrit 42.9 % (40-54); Hemoglobin 15.1 g/dl (13.0-16.5); Lymphocyte # 2.96 X10^3/ul (4.0); Lymphocyte % 37.1 % (19-41); Mean Corp Hgb Conc 35.2 g/gl (32-36); Mean Corpuscular Hgb 28.4 pg (27.0-32.0); Mean Corpuscular Volume 80.8 fL (80-94); Monocyte# 0.82 X10^3/uL; Monocyte% 10.3 % (0-10); Neutrophil # 3.85 X10^3/uL (2.7-7.7); Neutrophil % 48.4 % (47-70); Platelet Count 216 K/mm3 (150-450); RBC Distribution Width CV 12.6 % (11.6-14.6); RBC Distribution Width SD 37.3 fl (35.1-43.9); Red Blood Count 5.31 M/mm3 (4.6-6.2)
[2018-03-11 10:06] LABS: POSITIVE COUNT NO; POSITIVE DIFFERENTIAL NO; POSITIVE MORPHOLOGY NO
[2018-03-11 10:12] LABS: Albumin, Serum 4.4 g/dL (3.2-5.0); BUN 19 mg/dL (7-18); BUN/Creat Ratio 19.4 RATIO (10-20); Creatinine, Serum 0.98 mg/dL (0.70-1.30); EST Glomerular Filtration Rate 102 mL/min (>60); Est Glom Filt Rate - Afr Amer 123 mL/min (>60); Estimated Creatinine Clearance 129.77 ml/min; Glucose 93 mg/dL (74-106); Protein, Total 7.5 g/dL (6.4-8.2)
[2018-03-11 10:13] LABS: ALB/GLOB Ratio 1.4 RATIO (0.9-2.4); AST(SGOT) 24 U/L (15-37); Alanine Aminotransfer ALT/SGPT 23 U/L (16-61); Alkaline Phosphatase 104 U/L (45-117); Anion Gap 7 (5-15); Calcium,Total 8.6 mg/dL (8.5-10.1); Chloride 103 mmol/L (98-107); Globulin 3.1 g/dL (2.2-4.2); Sodium Level 137 mmol/L (136-145)
[2018-03-11 10:26] VITALS: RESP 14
[2018-03-11 11:23] LABS: Alcohol, Blood (Medical)-Serum < 3.0 mg/dL
--- NOTE | 2018-03-11 11:34 | NURSING ---
CALLED CRISIS ABOUT PATIENT. TALKED TO ESTHER
[2018-03-11 11:46] VITALS: RESP 14
--- NOTE | 2018-03-11 14:49 | NURSING ---
[place], IS HERE
[2018-03-11 15:53] LABS: Amphetamine Urine VISTA POSITIVE (<1000 ng/mL); Barbiturate Urine VISTA NEGATIVE (< 200 ng/mL); Benzodiazepine Urine VISTA NEGATIVE (< 200 ng/mL); Cocaine Urine VISTA NEGATIVE (< 300 ng/mL); Ecstacy Urine VISTA POSITIVE (< 500 ng/mL); Methadone Urine VISTA NEGATIVE (< 300 ng/mL); PCP Urine VISTA NEGATIVE (< 25 ng/mL); THC Urine VISTA POSITIVE (< 50 ng/mL); Vista UDS pH Range 7
--- NOTE | 2018-03-11 17:38 | ED.RN ---
THIS NURSE CALLED NUBIA RODRIGUEZ, AND REQUESTED TO SEND DINNER, NO MILK.
[2018-03-11 17:45] VITALS: BP 132/61; PULSE 86; O2SAT 98
--- NOTE | 2018-03-11 18:25 | NURSING ---
CALLED [facility] FOR TRANSPORT, ETA IS 45 TO 60 MIN
--- NOTE | 2018-03-11 19:28 | NURSING ---
THIS NURSE CALLED DILAN DICKSON AND LEFT MESSAGE FOR CHIP THAT RUBIO WAS PRESENT AT [facility] TO TOP INVENTORY CONTROL EXECUTIVE PT.
--- OUTSIDE RECORDS SUMMARY | 2018-04-27 10:07 | XMS RPT_ITS ---
:1995 Author Organization OHIP Support Name Relationship Address Phone IMAN MARTIN Unavailable [address] + [place] [address] MARTIN, MAURICIO Unavailable [address] + [place] [address] UE Unavailable Unavailable Unavailable MARTIN, LOUANA Unavailable [address] + [place] [address] MARTIN, MAURICIO Unavailable [address] + [place] [address] UE Unavailable Unavailable Unavailable MARTIN, LOUANA Unavailable [address] + [place] [address] MARTIN, MAURICIO Unavailable [address] + [place] [address] UE Unavailable Unavailable Unavailable MARTIN, LOUANA Unavailable [address] + [place] [address] MARTIN, MAURICIO Unavailable [address] + [place] [address] UE Unavailable Unavailable Unavailable MARTIN, LOUANA Unavailable [address] + [place] [address] MARTIN, MAURICIO Unavailable [address] + [place] [address] UE Unavailable Unavailable Unavailable MARTIN, LOUANA Unavailable [address] + [place] [address] MARTIN, MAURICIO Unavailable [address] + [place] [address] UE Unavailable Unavailable Unavailable MARTIN, LOUANA Unavailable [address] + [place] [address] MAURICIO MARTIN Unavailable [address] + [place] [address] UE Unavailable Unavailable Unavailable Care Team Providers Name Role Phone Primay Care Physicia, No Primary Care Unavailable Hieu Warner Attending Unavailable Primay Care Physicia, No Primary Care Unavailable Brii Anne Attending Unavailable Primay Care Physicia, No Primary Care Unavailable Ashelfah, Ghasem Admitting Unavailable Gbaruk, Kombian Attending Unavailable Ashelfah, Ghasem Admitting Unavailable Ashelfah, Ghasem Attending Unavailable Primay Care Physicia, No Primary Care Unavailable Ashelfah, Ghasem Consulting Unavailable Ashelfah, Ghasem Admitting Unavailable Primay Care Physicia, No Primary Care Unavailable Gbaruk, Kombian Consulting Unavailable Sementi, Kalina Attending Unavailable Ashelfah, Ghasem Admitting Unavailable Primay Care Physicia, No Primary Care Unavailable Gbaruk, Kombian Consulting Unavailable Sementi, Kalina Attending Unavailable Ashelfah, Ghasem Admitting Unavailable Primay Care Physicia, No Primary Care Unavailable Gbaruk, Kombian Consulting Unavailable Sementi, Kalina Attending Unavailable PROBLEMS PROBLEMS No Problem Records FoundPROCEDURES PROCEDURES No Procedure Records FoundRESULTS RESULTS URINE DRUG SCREEN Collected: 03/11/2018 Status: F Source: BINH ARDON) 3:25 PM [facility] REPOSITORY TYPE CODE TESTS RESULT OUT OF RANGE REFERENCE UNITS LAB L505.0075 TO BE Normal CONFIRMED Result Comment: CONFIRMATORY TESTING FOR ALL POSITIVE URINE DRUG SCREEN RESULTS WILL ONLY BE SENT OUT UPON PHYSICIAN ORDER. CanestaTA Urine Drug Screen methods provide only preliminary analytical test results. A more specific alternate chemical method must be used in order to obtain a confirmed analytical result. Gas chromatography/mass spectrometery (GC/MS) is the preferred confirmatory method. Clinical consideration and professional judgement should be applied to any drug of abuse test result, particularly when preliminary positive results are used. URINE TCA TESTING MUST BE ORDERED SEPARATELY. USE TEST MNEMONIC: [facility] LAB L505.5005 VISTA UDS PH 7 Normal LAB L505.5015 <1000 High ng/mL AMPHETAMINES POSITIVE LAB L505.5025 < 200 ng/mL BARBITIURATES Normal NEGATIVE LAB L505.5035 < 200 ng/mL BENZODIAZIPINE Normal NEGATIVE LAB L505.5045 < 300 ng/mL COCAINE Normal NEGATIVE LAB L505.5055 < 500 High ng/mL ECSTACY POSITIVE LAB L505.5065 < 300 ng/mL METHADONE Normal NEGATIVE LAB L505.5075 < 300 ng/mL OPIATES Normal NEGATIVE LAB L505.5085 < 25 ng/mL PCP Normal NEGATIVE LAB L505.5095 < 50 High ng/mL THC POSITIVE Performed By: #### L505.5000 #### [facility] [address], [address] EMERGENCY DEPARTMENT Observed: 03/11/2018 Status: F Source: [place] SUMMARY 12:11 PM [facility] REPOSITORY [facility] Medical Records Department [address] [place] [address] Emergency Department Summary 03/11/18 0955 MR#: [id number] Acct: [id number] Name: AUBREY MARTIN Rep #: [id number] : 1995 23 From: Hieu Warner MD PCP: Care Physician, No Primary Status: REG ER - ER Visit Summary Date of Service: 03/11/18 Chief Complaint: Suicidal ideation History of Present Illness: The patient is a 23 M with a history of schizoaffective disorder. He follows with a care center. He has had increasing thoughts of suicide over the past week or so. His symptoms were worse today. He thought about hanging himself. He did not attempt to hang himself or hurt himself. Denies any ingestions. Denies any complaints of pain or any medical complaints. He had similar symptoms in the past and has been admitted for suicidal ideation. Physical Examination: Afebrile and vital signs unremarkable except for heart rate of 102. He appears nontoxic and in no acute distress. Alert and oriented. Depressed mood and flat affect. Poor eye contact. Heart regular. No respiratory distress. Abdomen soft. Moves all extremities. Test Results: Laboratory studies, alcohol level, and tox screen are pending. Emergency Department Course and Treatment: Patient seen immediately. He had suicide precautions. Will perform medical clearance. Will contact the crisis center after medical clearance for placement. Treated with Kdur for K of 3.0. Otherwise his workup was unremarkable. Patient is medically cleared for admission to a psychiatric unit. Treatment Plan: As above Disposition: Transfer pending crisis evaluation Impression: 1. Suicidal ideation 2. Hypokalemia This note was generated with [employer] dictation software. It may contain incorrect words, spelling, and punctuation that were not noted in review of the chart prior to signing ED Disposition - Plan for ED Patient: Chief Complaint: Mental Health Referrals: Care Physician,No Primary [Primary Care Provider] - What to do if you have Problems For any increased pain, shortness of breath, bleeding, nausea or vomiting, chest pain, or any unexpected problems, contact your Primary Care Provider. Call [facility] ([phone]) or report to the closest Emergency Room. Call 911 if necessary. 03/11/18 1211 <Electronically signed by Hieu Warner MD> Date Hieu Warner MD Cosigner Signature (If Indicated): Date CC: No Primary Care Physician CBC W/DIFF, AUTOMATED Collected: 03/11/2018 Status: F Source: [facility] 9:45 AM [facility] REPOSITORY TYPE CODE TESTS RESULT OUT OF RANGE REFERENCE UNITS LAB L100.1000 4.4-11.0 K/mm3 Normal WBC 8.0 LAB L100.1200 4.6-6.2 M/mm3 Normal RBC 5.31 LAB L100.1300 13.0-16.5 g/dl Normal HGB 15.1 LAB L100.1400 40-54 % Normal HCT 42.9 LAB L100.1500 80-94 fL Normal MCV 80.8 LAB L100.1600 27.0-32.0 pg Normal MCH 28.4 LAB L100.1700 32-36 g/gl Normal MCHC 35.2 LAB L100.1810 11.6-14.6 % Normal RDW CV 12.6 LAB L100.1820 35.1-43.9 fl Normal RDW SD 37.3 LAB L100.1900 150-450 K/mm3 Normal PLT 216 LAB L100.2000 6.2-12.0 fl Normal MPV 9.0 LAB L100.2100 47-70 % Normal NEUT% 48.4 LAB L100.2200 19-41 % Normal LY% 37.1 LAB L100.2300 0-10 % High MONO% 10.3 LAB L100.2400 0-5 % Normal EO% 3.6 LAB L100.2500 0-1 % Normal BASO% 0.5 LAB L100.2550 0.0-0.9 % Normal IM GRAN % 0.100 Result Comment: IG% - Immature Granulocytes (promyelocytes, myelocytes and metamyelocytes) > 1% indicates that a LEFT SHIFT is Present. LAB L100.2620 2.0-7.7 X10 3/uL Normal Absolute Neut 3.9 LAB L100.2720 0.83-4.51 X10 3/ul Normal Absolute Lymph 2.96 Performed By: #### L100.0100 #### [facility] [address] [place], [address] COMPREHENSIVE METABOLIC Collected: 03/11/2018 Status: F Source: [facility] 9:45 AM [facility] REPOSITORY TYPE CODE TESTS RESULT OUT OF RANGE REFERENCE UNITS LAB L501.0100 74-106 mg/dL Normal GLU 93 Result Comment: Please note revised GLUCOSE reference range effective 2017. LAB L501.1000 7-18 mg/dL High BUN 19 LAB L501.1100 0.70-1.30 mg/dL Normal CREAT,SERUM 0.98 Result Comment: The validity of the calculated GFR AND GFRAA in patients over 70 years has not been determined. Clinical correlation is essential. LAB L501.1110 >60 mL/min Normal EST GFR 102 Result Comment: Non- GFR Calc LAB L501.1115 >60 mL/min Normal EST GFR - AA 123 Result Comment: GFR Calc LAB L501.1255 ml/min Normal Estimated CRCL 129.77 LAB L501.1300 10-20 RATIO BUN/CRE Normal 19.4 LAB L501.1500 6.4-8. g/dL 2 T PROT Normal 7.5 LAB L501.1800 3.2-5. g/dL 0 ALB Normal 4.4 LAB L501.1950 2.2-4. g/dL 2 GLOB Normal 3.1 LAB L501.2000 0.9-2. RATIO 4 A/G Normal 1.4 LAB L501.2200 8.5-10 mg/dL .1 CA Normal 8.6 LAB L501.4100 15-37 U/L AST Normal 24 LAB L501.4305 45-117 U/L ALK P Normal 104 LAB L501.4405 16-61 U/L ALT Normal 23 LAB L501.4600 0.20-1 mg/dL .00 T BILI Normal 0.80 LAB L501.5300 136-14 mmol/L 5 NA Normal 137 LAB L501.5600 3.5-5. mmol/L Low 1 K 3.0 LAB L501.5900 98-107 mmol/L CL Normal 103 LAB L501.6100 21.0-3 mmol/L 2.0 CO2 Normal 27.0 LAB L501.6200 5-15 GAP Normal 7 Performed By: #### L500.4050 #### [facility] [address] [place] [address] ALCOHOL, BLOOD Collected: 03/11/2018 Status: F Source: [place] (MEDICAL)-SERUM 9:45 AM [facility] REPOSITORY TYPE CODE TESTS RESULT OUT OF RANGE REFERENCE UNITS LAB L501.9100 mg/dL Normal SERUM < 3.0 ETOH Result Comment: The serum:whole blood ethanol ratio is approximately 1.14 and varies slightly with hematocrit. Medical Alcohol reference interval and critical value in non-tolerant individuals; 50 - 100 Impairment 100 Intoxication 100 - 250 Severe Poisoning 250 - 400 Deep/possible fatal coma Performed By: #### L501.9100 #### [facility] [address] [place], [address] DISCHARGE SUMMARY Observed: 08/02/2017 Status: F Source: [place] 3:28 PM [facility] REPOSITORY [facility] Medical Records Department [address] [place] [address] Discharge Summary 08/02/17 1525 MR#: [id number] Acct: [id number] Name: AUBREY MARTIN Rep #: [id number] : 1995 22 From: Ulices Harry MD PCP: Care Physician, No Primary Status: DIS IN Y Location: [facility] [id number] Discharge Date and Diagnosis Date of Admission: 07/29/17 Date of Discharge: 08/01/17 - Secondary Discharge Diagnosis Chronic Problems Depression (Chronic) Schizophrenia (Chronic) Hospital Course and Treatment Summary of Care Provided: This is a 22-year-old male with history of multidrug abuse who was found down and sent to the emergency room. Further workup revealed the patient had acute kidney injury and rhabdomyolysis . He was admitted to the progressive care unit for close monitoring of toxic duct effects and withdrawal effects. He was started on aggressive IV fluids for rhabdomyolysis and acute kidney injury. His CPK and renal parameters improved, commended for the treatment with IV fluids until CPK levels normalize but he signed out AGAINST MEDICAL ADVICE. Discharge Diet: No Restrictions Home Medications: Medications to take at Discharge Quetiapine Fumarate [Seroquel] 800 mg PO QHS 07/29/17 Trazodone HCl 150 mg PO PRN PRN 07/29/17 Primary Care Physician: Care Physician,No Primary [Primary Care Provider] - Medical Necessity - Tobacco Use Smoking Status: Current every day smoker Tobacco Use: Cigarettes Meaningful Use Info Meaningful Use Diagnoses (Choose all that apply): None applicable Code Visit Inpatient E AND M: 75038 Disch Hosp 08/02/17 1528 <Electronically signed by Ulices Harry MD> Date Ulices Harry MD Cosigner Signature (if applicable): Date CC: No Primary Care Physician; Ulices Harry MD Signed BASIC METABOLIC Collected: 08/01/2017 Status: F Source: [facility] PROFILE (BMP) 6:30 AM [facility] REPOSITORY TYPE CODE TESTS RESULT OUT OF RANGE REFERENCE UNITS LAB L501.0100 74-106 mg/dL Normal GLU 89 Result Comment: Please note revised GLUCOSE reference range effective 2017. LAB L501.1000 7-18 mg/dL Normal BUN 13 LAB L501.1100 0.70-1.30 mg/dL Normal CREAT,SERUM 0.74 Result Comment: The validity of the calculated GFR AND GFRAA in patients over 70 years has not been determined. Clinical correlation is essential. LAB L501.1110 >60 mL/min Normal EST GFR 140 Result Comment: Non- GFR Calc LAB L501.1115 >60 mL/min Normal EST GFR - AA 170 Result Comment: GFR Calc LAB L501.1255 ml/min Normal Estimated CRCL 168.18 LAB L501.1300 10-20 RATIO BUN/CRE Normal 17.4 LAB L501.2200 8.5-10 mg/dL Low .1 CA 7.8 LAB L501.5300 136-14 mmol/L 5 NA Normal 143 LAB L501.5600 3.5-5. mmol/L Low 1 K 3.4 LAB L501.5900 98-107 mmol/L CL Normal 107 LAB L501.6100 21.0-3 mmol/L 2.0 CO2 Normal 28.0 LAB L501.6200 5-15 GAP Normal 8 Performed By: #### L500.2500, L500.3400, L501.3620 #### [facility] [address] [place], [place], [id number] LIVER PROFILE Collected: 08/01/2017 Status: F Source: [place] 6:30 AM [facility] REPOSITORY TYPE CODE TESTS RESULT OUT OF RANGE REFERENCE UNITS LAB L501.1500 6.4-8.2 g/dL Low T PROT 5.9 LAB L501.1800 3.2-5.0 g/dL Low ALB 2.6 LAB L501.1950 2.2-4.2 g/dL Normal GLOB 3.3 LAB L501.4100 15-37 U/L High AST 397 LAB L501.4305 45-117 U/L Normal ALK P 71 LAB L501.4405 16-61 U/L High ALT 193 LAB L501.4600 0.20-1.00 mg/dL Normal T BILI 0.20 LAB L501.4700 0.00-0.30 mg/dL Normal D BILI 0.12 Performed By: #### L500.2500, L500.3400, L501.3620 #### [facility] [address] [place], [address] CPK TOTAL, CREATINE Collected: 08/01/2017 Status: F Source: [place] [place] 6:30 AM [facility] REPOSITORY TYPE CODE TESTS RESULT OUT OF RANGE REFERENCE UNITS LAB L501.3620 39-308 U/L High CPK TOTAL [address] Performed By: #### L500.2500, L500.3400, L501.3620 #### [facility] [address] [place], [address] 12 LEAD ELECTROCARDIOGRAM Observed: 07/31/2017 Status: F Source: [place] 6:10 PM [facility] REPOSITORY [facility] Cardiovascular Services [address] [facility] [place] [address] 12 Lead EKG 07/29/17 1332 MR#: [id number] Acct: [id number] Name: AUBREY MARTIN Rep #: [id number] : 1995 22 From: Brien Alberto MD Attending Dr: Piero KAMARA,Ulices Status: ADM IN Ordering Dr: Mauricio Cole MD Date: 07/29/17 Location: [facility] Sex: M C Admitted: 07/29/17 Test Reason : OD Blood Pressure : / mmHG Vent. Rate : 123 BPM Atrial Rate : 123 BPM P-R Int : 144 ms QRS Dur : 092 ms QT Int : 302 ms P-R-T Axes : 074 080 036 degrees QTc Int : 432 ms Sinus tachycardia Right atrial enlargement Borderline ECG Confirmed by REMY KAMARA, BRIEN ([id number]), editorial clerk GENE ARMSTRONG ([id number]) on 07/31/2017 9:08:57 AM Referred By: GENNA/NEELA Confirmed By:BRIEN ALBERTO MD 07/31/17 0909 Date Brien Alberto MD CC: No Primary Care Physician; Mauricio Cole MD; Ulices Harry MD Signed BASIC METABOLIC Collected: 07/31/2017 Status: F Source: [facility] PROFILE (BMP) 6:05 AM [facility] REPOSITORY TYPE CODE TESTS RESULT OUT OF RANGE REFERENCE UNITS LAB L501.0100 74-106 mg/dL High GLU 120 Result Comment: Fasting Glucose result from 100 to 125 mg/dL suggests IMPAIRED HOMEOSTASIS per A.D.A. criteria. Please note revised GLUCOSE reference range effective 2017. LAB L501.1000 7-18 mg/dL Normal BUN 17 LAB L501.1100 0.70-1.30 mg/dL Normal CREAT,SERUM 0.84 Result Comment: The validity of the calculated GFR AND GFRAA in patients over 70 years has not been determined. Clinical correlation is essential. LAB L501.1110 >60 mL/min Normal EST GFR 123 Result Comment: Non- GFR Calc LAB L501.1115 >60 mL/min Normal EST GFR - AA 148 Result Comment: GFR Calc LAB L501.1255 ml/min Normal Estimated CRCL 148.16 LAB L501.1300 10-20 RATIO High BUN/CRE 20.3 LAB L501.2200 8.5-10 mg/dL Low .1 CA 7.6 LAB L501.5300 136-14 mmol/L 5 NA Normal 140 LAB L501.5600 3.5-5. mmol/L Low 1 K 3.4 LAB L501.5900 98-107 mmol/L CL Normal 107 LAB L501.6100 21.0-3 mmol/L 2.0 CO2 Normal 26.0 LAB L501.6200 5-15 GAP Normal 7 Performed By: #### L500.2500, L501.3620 #### [facility] [address] [place], [address] CPK TOTAL, CREATINE Collected: 07/31/2017 Status: F Source: [place] [place] 6:05 AM [facility] REPOSITORY TYPE CODE TESTS RESULT OUT OF RANGE REFERENCE UNITS LAB L501.3620 39-308 U/L High CPK TOTAL [address] Performed By: #### L500.2500, L501.3620 #### [facility] [address] [place], [address] CBC W/DIFF, AUTOMATED Collected: 07/30/2017 Status: F Source: [place] 6:15 AM [facility] REPOSITORY TYPE CODE TESTS RESULT OUT OF RANGE REFERENCE UNITS LAB L100.1000 4.4-11.0 K/mm3 Normal WBC 9.5 LAB L100.1200 4.6-6.2 M/mm3 Normal RBC 4.94 LAB L100.1300 13.0-16.5 g/dl Normal HGB 14.1 LAB L100.1400 40-54 % Normal HCT 41.8 LAB L100.1500 80-94 fL Normal MCV 84.6 LAB L100.1600 27.0-32.0 pg Normal MCH 28.5 LAB L100.1700 32-36 g/gl Normal MCHC 33.7 LAB L100.1810 11.6-14.6 % Normal RDW CV 13.5 LAB L100.1820 35.1-43.9 fl Normal RDW SD 41.7 LAB L100.1900 150-450 K/mm3 Normal PLT 187 LAB L100.2000 6.2-12.0 fl Normal MPV 9.2 LAB L100.2100 47-70 % Normal NEUT% 66.2 LAB L100.2200 19-41 % Low LY% 16.4 LAB L100.2300 0-10 % High MONO% 15.0 LAB L100.2400 0-5 % Normal EO% 1.9 LAB L100.2500 0-1 % Normal BASO% 0.4 LAB L100.2550 0.0-0.9 % Normal IM GRAN % 0.100 Result Comment: IG% - Immature Granulocytes (promyelocytes, myelocytes and metamyelocytes) > 1% indicates that a LEFT SHIFT is Present. LAB L100.2620 2.0-7.7 X10 3/uL Normal Absolute Neut 6.3 LAB L100.2720 0.83-4.51 X10 3/ul Normal Absolute Lymph 1.56 Performed By: #### L100.0100 #### [facility] [place], [address] COMPREHENSIVE METABOLIC Collected: 07/30/2017 Status: F Source: [facility] M[place] 6:15 AM [facility] REPOSITORY TYPE CODE TESTS RESULT OUT OF RANGE REFERENCE UNITS LAB L501.0100 74-106 mg/dL Normal GLU 87 Result Comment: Please note revised GLUCOSE reference range effective 2017. LAB L501.1000 7-18 mg/dL High BUN 24 LAB L501.1100 0.70-1.30 mg/dL Normal CREAT,SERUM 1.02 Result Comment: The validity of the calculated GFR AND GFRAA in patients over 70 years has not been determined. Clinical correlation is essential. LAB L501.1110 >60 mL/min Normal EST GFR 98 Result Comment: Non- GFR Calc LAB L501.1115 >60 mL/min Normal EST GFR - AA 118 Result Comment: GFR Calc LAB L501.1255 ml/min Normal Estimated CRCL 118.29 LAB L501.1300 10-20 RATIO High BUN/CRE 23.5 LAB L501.1500 6.4-8. g/dL Low 2 T PROT 6.2 LAB L501.1800 3.2-5. g/dL 0 ALB Normal 3.2 LAB L501.1950 2.2-4. g/dL 2 GLOB Normal 3.0 LAB L501.2000 0.9-2. RATIO 4 A/G Normal 1.1 LAB L501.2200 8.5-10 mg/dL Low .1 CA 8.1 LAB L501.4100 15-37 U/L High AST 880 LAB L501.4305 45-117 U/L ALK P Normal 87 LAB L501.4405 16-61 U/L High ALT 248 LAB L501.4600 0.20-1 mg/dL High .00 T BILI 1.10 LAB L501.5300 136-14 mmol/L 5 NA Normal 142 LAB L501.5600 3.5-5. mmol/L 1 K Normal 4.1 LAB L501.5900 98-107 mmol/L High CL 109 LAB L501.6100 21.0-3 mmol/L 2.0 CO2 Normal 24.0 LAB L501.6200 5-15 GAP Normal 9 Performed By: #### L500.4050, L501.3620 #### [facility] [address] [place], [address] CPK TOTAL, CREATINE Collected: 07/30/2017 Status: F Source: [facility] [place] 6:15 AM [facility] REPOSITORY TYPE CODE TESTS RESULT OUT OF RANGE REFERENCE UNITS LAB L501.3620 39-308 U/L High CPK TOTAL [address] Performed By: #### L500.4050, L501.3620 #### [facility] [address] [place], [address] HISTORY AND PHYSICAL Observed: 07/29/2017 Status: F Source: [place] EXAM 5:24 PM [facility] REPOSITORY [facility] Medical Records Department [address] [place] [address] History and Physical 07/29/17 1635 MR#: [id number] Acct: [id number] Name: AUBREY MARTIN Rep #: [id number] : 1995 From: Radha Manuel MD PCP: Care Physician, No Primary Status: ADM IN Location: [place] [address] Problem List (1) Acute kidney injury Status: Acute (2) Drug overdose, multiple drugs Status: Acute (3) Rhabdomyolysis Status: Acute (4) Depression Status: Chronic (5) Schizophrenia Status: Chronic History of Present Illness Date of Admission: 07/29/17 Chief Complaint: Overdosing on Seroquel. The patient is a 22 year old M with past medical history as mentioned above presented to the emergency room because he took 4-5 pills of Seroquel yesterday. At this time, patient is alert and oriented 3. He was talking super fast and he was not able to provide good history. He mentioned that he took 4-5 pills of Seroquel last night because he was trying to sleep. Patient has been mumbling incoherent words that is difficult to understand. He did mention that he has been having chronic hallucinations. His brother was at the bedside and he did mention that the patient has been using drugs including amphetamines and he has been smoking pot. At this time, patient denies any chest pain or shortness of breath. He reported vague mild lower abdominal pain. Denied nausea or vomiting. Denies fever chills. He had a history of schizophrenia and he has been on Seroquel. He has history of depression and he has been on trazodone. His brother mentioned that he has been using street drugs for quite some time but the patient himself denied using any drugs. In the emergency department, patient was tachycardic, blood pressure stable, afebrile and pulse ox maintained on room air. Routine blood work was remarkable for leukocytosis, BUN of 30, creatinine of 1.56. His LFT revealed elevated total bilirubin as well as liver transaminases and slightly elevated alkaline phosphatase. His total creatine phosphokinase is 37,057. Urine drug screen was positive for amphetamines, methamphetamines, benzodiazepines and cannabinoids. Blood alcohol level was less than 3. CT scan brain showed no acute findings. Chest x- ray showed no acute infiltrate, consolidation or effusion. EKG revealed sinus tachycardia, otherwise normal. He is being admitted for polysubstance overdose, rhabdomyolysis and acute kidney injury. Past Medical History Past Medical History (Chronic Problems): Chronic Problems Depression (Chronic) Schizophrenia (Chronic) Allergies Penicillins Allergy (Verified 07/29/17 11:24) Hives Sulfa (Sulfonamide Antibiotics) Allergy (Verified 07/29/17 11:24) Hives Home Medications: Ambulatory Orders Medication Instructions Recorded Quetiapine Fumarate [Seroquel] 800 mg PO QHS 07/29/17 Trazodone HCl 150 mg PO PRN PRN 07/29/17 Surgical History: no surgical history Psychiatric History: Depression, Schizophrenia Smoking Status: Current every day smoker Tobacco Use: Cigarettes Alcohol: None Drugs: Marijuana - *Family History Maternal History Items: No pertinent history Paternal History Items: No pertinent history Review of Systems Constitutional: Denies: Anorexia, Chills, Fever, Weakness Eyes: Denies: Blurred vision, Double vision, Redness HEENT: Denies: Difficulty Hearing, Ear Pain, Eye Pain, Nasal Congestion, Sore Throat Cardiovascular: Denies: Chest Pain, Chest Tightness, Edema, Palpitations, Syncope Respiratory: Denies: Cough, Pleuritic Pain, Shortness of Breath, Sputum production, Wheezing Gastrointestinal: Reports: Abdominal Pain. Denies: Constipation, Diarrhea, Nausea, Vomiting Genitourinary: Denies: Dysuria, Frequency, Hematuria Musculoskeletal: Denies: Arm Pain, Back Pain, Foot Pain Skin: Denies: Dryness, Rash Neurological: Denies: Balance problems, Change in Speech, Slurred speech, Confusion, Focal weakness, Headaches, Incoordination Psychiatric: Reports: Depression. Denies: Anxiety, Homicidal Ideations, Suicidal Ideations Endocrine: Denies: Change in Body Habitus, Polydipsia VTE Information - Inpt Only VTE Present on Admission: No VTE Mechan Device Prophylaxis: None VTE Pharm Prophylaxis ordered?: Yes Patient Problems: Active and Suspected Problems Acute kidney injury (Acute) Drug overdose, multiple drugs (Acute) Rhabdomyolysis (Acute) - Physical Exam General: Alert, Oriented x3, Cooperative, No apparent distress HEENT: Atraumatic, PERRLA, EOMI Oral: Moist Mucosa, No Gingival or Mucosal Lesions/ Ulcerations Neck: Supple, No JVD, Negative Carotid Bruits, Trachea Midline, Thyroid Normal Size and Texture Lungs: Clear to auscultation, No rhonchi, No wheeze, No rales, Diminished Cardiovascular: Regular rate, Regular Rhythm, Normal S1, Normal S2, No murmurs, PMI Normal, Tachycardic Abdomen: Bowel Sounds Present, Soft, Non Tender, Non-Distended, No Hepato-splenomegaly, Tender - No guarding or rigidity. Extremities: No clubbing, No cyanosis, No edema Skin: No rashes, No breakdown Lymphatic: No Cervical, Supraclavicular, or Inguinal Adenopathy Neurological: Cranial nerves II-XII grossly intact, Motor Exam 5/5 strength throughout Psych/Mental Status: Anxious, Impulsive, Alert and oriented to time, place, person, mood and affect Vital Signs Temp Pulse Resp BP Pulse Ox 98.1 F 116 H 19 H 109/90 H 97 07/29/17 11:21 07/29/17 16:25 07/29/17 16:25 07/29/17 16:25 07/29/17 16:25 Oxygen Flow Rate (L/min) 2 Oxygen Delivery Method Room Air Weight: 240 lb Body Mass Index (BMI) 33.5 Laboratory Tests Past 24 Hrs WBC 17.3 H RBC 6.04 Hgb 17.7 H Hct 49.9 MCV 82.6 MCH 29.3 MCHC 35.5 WBC RBC Hgb Hct MCV MCH MCHC RDW RDW Differential Plt Count MPV Immature Gran % (Auto) Neut % (Auto) Lymph % (Auto) Clinical Impression(s) from Imaging Studies Brain CT 07/29/17 11:39 IMPRESSION: Normal unenhanced CT scan of the brain. Electronically Signed: Bishop Druan MD at 12:18 EDT , Service support , Chest X-Ray 07/29/17 13:20 IMPRESSION: Normal x-ray examination of the chest. Electronically Signed: Bishop Duran MD at 13:45 EDT , Service support , Assessment/Plan Active and Suspected Problems Acute kidney injury (Acute) Drug overdose, multiple drugs (Acute) Rhabdomyolysis (Acute) This is a 22 years old male patient brought to the emergency room because he overdosed on Seroquel, found to have polysubstance overdose, abnormalities and acute kidney injury. #1 multidrug overdose/Seroquel overdose: Urine drug screen was positive for amphetamines, methamphetamines, benzodiazepines and cannabinoids. Patient is awake and oriented 3, tachycardic, blood pressure stable and maintained pulse ox on room air. EKG revealed sinus tachycardia, otherwise normal. CT scan brain without acute findings. Plan: Admit to PCU, cardiac monitoring, one on one observation, IV Ativan as needed, IV fluids, repeat CBC and CMP tomorrow morning. #2 rhabdomyolysis: CPK was highly elevated on admission and Seroquel can cause rhabdomyolysis. Plan: Generous IV fluids for hydration, input output chart, Tylenol as needed for pain, IV antiemetics, repeat CMP and CPK tomorrow morning, PT OT evaluation and treatment. #3 acute kidney injury: Secondary to #2. Plan as above, IV fluids, input output chart, repeat CMP tomorrow morning. Baseline kidney function is normal. #4 elevated LFT: Unclear etiology but it could be due to Seroquel. Blood alcohol level was normal. Plan as above, repeat LFTs tomorrow morning. Patient denied any right upper quadrant abdominal pain. If his LFT did not improve with IV fluids and stopping Seroquel, may need to consider ultrasound gallbladder and liver. #5 schizophrenia/depression: Hold trazodone and Seroquel. Plan for evaluation by mental crisis when medically stable. #6 drug abuse: According to patient's brother, patient has been using amphetamines and smoking pot. The patient himself denied using drugs. Plan as above. #7 DVT prophylaxis: Subcu heparin. This note was generated with [employer] software. It may contain incorrect words, spelling, and punctuation that were not noted in checking the note before signing. Code Visit Inpatient E AND M: [id number] Init Hosp L3 07/29/17 1724 <Electronically signed by Radha Manuel MD> Date Radha Manuel MD Cosigner Signature: Date (if applicable) CC: No Primary Care Physician; Radha Manuel Signed EMERGENCY DEPARTMENT Observed: 07/29/2017 Status: F Source: [place] SUMMARY 4:05 PM [facility] REPOSITORY [facility] Medical Records Department [address] [place] [address] Emergency Department Summary 07/29/17 1600 MR#: [id number] Acct: [id number] Name: AUBREY MARTIN Rep #: [id number] : 1995 22 From: Mauricio Cole MD PCP: Care Physician, No Primary Status: REG ER - ER Visit Summary Date of Service: 07/29/17 Chief Complaint: Seroquel overdose History of Present Illness: The patient is a 22 M who reports that he took 4-5 Seroquel yesterday. He states this was not in an attempt to harm himself. History is limited as the patient has rapid mumbling speech and is very difficult to understand. He does admit to auditory and visual hallucinations which are chronic. He denies recent illness such as fever chest pain shortness of breath vomiting diarrhea. He denies any pain currently. Family member also vocalize concern for stimulant abuse as he has a history of this. Physical Examination: Heart rate 128 vitals otherwise unremarkable Heart regular rhythm tachycardia Lungs are clear Abdomen soft Extremities nontender Alert he does not appear to have any focal or lateralizing neurological deficits Patient has rapid pressured mumbling speech Test Results: EKG shows sinus tachycardia at a rate of 123. His laboratory studies are notable for white blood cell count of 17.3. Creatinine is 1.56. Total bilirubin 1.2 and AST 1251. ALT 284. Alcohol negative. Salicylates and acetaminophen levels are normal. Urine drug screen positive for amphetamines, methamphetamine, benzodiazepines, cannabinoids. Lactic acid is normal. Creatinine kinase is pending at the time of this dictation but lab has stated that they have had to multiple dilutions and do not have an ETA yet on results. CT the head is normal. Chest x-ray is normal. Emergency Department Course and Treatment: I suspect the patient's cytosis is an acute phase reactant. Although we do not yet have a definite number we know it is significantly elevated on his creatinine kinase. He also has elevation in his creatinine. I suspect this is due to acute rhabdomyolysis likely related to drug abuse and methamphetamine abuse. He has been treated with aggressive IV fluids. He will require hospitalization. We will also likely need a right upper quadrant ultrasound in regards to his elevated LFTs Tylenol was normal. Treatment Plan: [] Disposition: Admit Impression: Rhabdomyolysis Polysubstance abuse Elevated LFTs This note was generated with [employer] dictation software. It may contain incorrect words, spelling, and punctuation that were not noted in review of the chart prior to signing ED Disposition - Plan for ED Patient: Chief Complaint: Overdose Referrals: Care Physician,No Primary [Primary Care Provider] - What to do if you have Problems For any increased pain, shortness of breath, bleeding, nausea or vomiting, chest pain, or any unexpected problems, contact your Primary Care Provider. Call [facility] ([phone]) or report to the closest Emergency Room. Call 911 if necessary. 07/29/17 1605 <Electronically signed by Mauricio Cole MD> Date Mauricio Cole MD Cosigner Signature (If Indicated): Date CC: No Primary Care Physician LACTIC ACID Collected: 07/29/2017 Status: F Source: [place] 1:56 PM [facility] REPOSITORY Order Comment: Yes/No query for Sepsis Lactate Rule Y TYPE CODE TESTS RESULT OUT OF RANGE REFERENCE UNITS LAB L503.6005 0.4-2.0 mmol/L Normal LACTIC ACID 1.1 Performed By: #### L503.6005 #### [facility] [address], [address] CPK TOTAL, CREATINE Collected: 07/29/2017 Status: F Source: [place] KINASE 1:56 PM [facility] REPOSITORY TYPE CODE TESTS RESULT OUT OF RANGE REFERENCE UNITS LAB L501.3620 39-308 U/L High CPK TOTAL 25134 Result Comment: Critical Result(s) Called VENKATESHMiky QUEZADA at: 16:04:29 07/29/2017 by: SABINO CULVER Performed By: #### L501.3620 #### [facility] [address] [place], [address] CHEST 1 VIEW Observed: 07/29/2017 Status: F Source: [place] (PORTABLE) 1:13 PM [facility] REPOSITORY [facility] Imaging Services [address] [place] [address] Chest 1 View (Portable) MR#: [id number] Acct: [id number] Name: AUBREY MATRIN Rep #: [id number] : 1995 M 22 From: Kayden Duran MD PCP: Care Physician, No Primary Status: REG ER Study: Chest 1 View (Portable) Date of Exam: 07/29/17 Exam# [id number] Ordering Dr: Mauricio Cole MD STUDY: X-RAY CHEST REASON FOR EXAM: Male, 22 years old. Possible overdose, patient unresponsive TECHNIQUE: Single AP portable view of the chest. COMPARISON: 2011 FINDINGS: EKG leads overlie the chest The lungs are clear and expanded. There is no demonstrated pleural abnormality. Normal size heart. Normal mediastinum and justen. Normal visualized pulmonary arteries. Normal visualized aortic arch and descending thoracic aorta. Normal visualized thoracic spine. Normal visualized ribs, clavicles, and shoulders. There is no demonstrated abnormality of the visualized soft tissue structures of the upper abdomen. RAD/Chest 1 View (Portable) IMPRESSION: Normal x-ray examination of the chest. Electronically Signed: Bishop Duran MD at 13:45 EDT , Service support , CC: No Primary Care Physician; Mauricio Cole MD Head Porter: Signed URINE DRUG SCREEN Collected: 07/29/2017 Status: F Source: [place] (EXETER) 12:20 PM [facility] REPOSITORY TYPE CODE TESTS RESULT OUT OF RANGE REFERENCE UNITS LAB L505.0075 TO BE Normal CONFIRMED Result Comment: CONFIRMATORY TESTING FOR ALL POSITIVE URINE DRUG SCREEN RESULTS WILL ONLY BE SENT OUT UPON PHYSICIAN ORDER. VISTA Urine Drug Screen methods provide only preliminary analytical test results. A more specific alternate chemical method must be used in order to obtain a confirmed analytical result. Gas chromatography/mass spectrometery (GC/MS) is the preferred confirmatory method. Clinical consideration and professional judgement should be applied to any drug of abuse test result, particularly when preliminary positive results are used. URINE TCA TESTING MUST BE ORDERED SEPARATELY. USE TEST MNEMONIC: [facility] LAB L505.5005 VISTA UDS PH 5 Normal LAB L505.5015 <1000 High ng/mL AMPHETAMINES POSITIVE LAB L505.5025 < 200 ng/mL BARBITIURATES Normal NEGATIVE LAB L505.5035 < 200 High ng/mL BENZODIAZIPINE POSITIVE LAB L505.5045 < 300 ng/mL COCAINE Normal NEGATIVE LAB L505.5055 < 500 High ng/mL ECSTACY POSITIVE LAB L505.5065 < 300 ng/mL METHADONE Normal NEGATIVE LAB L505.5075 < 300 ng/mL OPIATES Normal NEGATIVE LAB L505.5085 < 25 ng/mL PCP Normal NEGATIVE LAB L505.5095 < 50 High ng/mL THC POSITIVE Performed By: #### L505.5000 #### [facility] [address] [place], [address] CBC W/DIFF, AUTOMATED Collected: 07/29/2017 Status: F Source: [place] 12:01 PM [facility] REPOSITORY TYPE CODE TESTS RESULT OUT OF RANGE REFERENCE UNITS LAB L100.1000 4.4-11.0 K/mm3 High WBC 17.3 LAB L100.1200 4.6-6.2 M/mm3 Normal RBC 6.04 LAB L100.1300 13.0-16.5 g/dl High HGB 17.7 LAB L100.1400 40-54 % Normal HCT 49.9 LAB L100.1500 80-94 fL Normal MCV 82.6 LAB L100.1600 27.0-32.0 pg Normal MCH 29.3 LAB L100.1700 32-36 g/gl Normal MCHC 35.5 LAB L100.1810 11.6-14.6 % Normal RDW CV 13.4 LAB L100.1820 35.1-43.9 fl Normal RDW SD 40.3 LAB L100.1900 150-450 K/mm3 Normal PLT 238 LAB L100.2000 6.2-12.0 fl Normal MPV 9.4 LAB L100.2100 47-70 % High NEUT% 80.9 LAB L100.2200 19-41 % Low LY% 11.8 LAB L100.2300 0-10 % Normal MONO% 6.8 LAB L100.2400 0-5 % Normal EO% 0.1 LAB L100.2500 0-1 % Normal BASO% 0.2 LAB L100.2550 0.0-0.9 % Normal IM GRAN % 0.200 Result Comment: IG% - Immature Granulocytes (promyelocytes, myelocytes and metamyelocytes) > 1% indicates that a LEFT SHIFT is Present. LAB L100.2620 2.0-7.7 X10 3/uL High Absolute Neut 14.0 LAB L100.2720 0.83-4.51 X10 3/ul Normal Absolute Lymph 2.04 Performed By: #### L100.0100 #### [facility] [address] [place], [address] COMPREHENSIVE METABOLIC Collected: 07/29/2017 Status: F Source: [facility] 12:01 PM [facility] REPOSITORY TYPE CODE TESTS RESULT OUT OF RANGE REFERENCE UNITS LAB L501.0100 74-106 mg/dL Normal GLU 98 Result Comment: Please note revised GLUCOSE reference range effective 2017. LAB L501.1000 7-18 mg/dL High BUN 30 LAB L501.1100 0.70-1.30 mg/dL High CREAT,SERUM 1.56 Result Comment: The validity of the calculated GFR AND GFRAA in patients over 70 years has not been determined. Clinical correlation is essential. LAB L501.1110 >60 mL/min Normal EST GFR 60 Result Comment: Non- GFR Calc LAB L501.1115 >60 mL/min Normal EST GFR - AA 72 Result Comment: GFR Calc LAB L501.1255 ml/min Normal Estimated CRCL 79.78 LAB L501.1300 10-20 RATIO Normal BUN/CRE 19.2 LAB L501.1500 6.4-8. g/dL High 2 T PROT 8.6 LAB L501.1800 3.2-5. g/dL Normal 0 ALB 4.6 LAB L501.1950 2.2-4. g/dL Normal 2 GLOB 4.0 LAB L501.2000 0.9-2. RATIO Normal 4 A/G 1.2 LAB L501.2200 8.5-10 mg/dL Normal .1 CA 9.6 LAB L501.4100 15-37 U/L High AST 1251 LAB L501.4305 45-117 U/L High ALK P 124 LAB L501.4405 16-61 U/L High ALT 284 LAB L501.4600 0.20-1 mg/dL High .00 T BILI 1.20 LAB L501.5300 136-14 mmol/L Normal 5 NA 139 LAB L501.5600 3.5-5. mmol/L Normal 1 K 4.8 LAB L501.5900 98-107 mmol/L High CL 108 LAB L501.6100 21.0-3 mmol/L Low 2.0 CO2 20.0 LAB L501.6200 5-15 Normal GAP 11 Performed By: #### L500.4050 #### [facility] [address] [place], [address] ALCOHOL, BLOOD Collected: 07/29/2017 Status: F Source: [place] (MEDICAL)-SERUM 12:01 PM [facility] REPOSITORY TYPE CODE TESTS RESULT OUT OF RANGE REFERENCE UNITS LAB L501.9100 mg/dL Normal SERUM < 3.0 ETOH Result Comment: The serum:whole blood ethanol ratio is approximately 1.14 and varies slightly with hematocrit. Medical Alcohol reference interval and critical value in non-tolerant individuals; 50 - 100 Impairment 100 Intoxication 100 - 250 Severe Poisoning 250 - 400 Deep/possible fatal coma Performed By: #### L501.9100 #### [facility] [address] [facility] [place], [address] SALICYLATE Collected: 07/29/2017 Status: F Source: [place] 12:01 PM [facility] REPOSITORY TYPE CODE TESTS RESULT OUT OF REFERENCE UNITS RANGE LAB L501.8300 2.8-20.0 mg/dL Low SALICYLATE 2.0 Performed By: #### L501.8300, L501.8400 #### [facility] [address] [place], [address] ACETAMINOPHEN (TYLENOL) Collected: 07/29/2017 Status: F Source: [facility] LEVEL 12:01 PM [facility] REPOSITORY TYPE CODE TESTS RESULT OUT OF REFERENCE UNITS RANGE LAB L501.8400 10.0-30.0 ug/mL ACETAMINOPHEN Low < 2.0 Performed By: #### L501.8300, L501.8400 #### [facility] [place], [address] PROTHROMBIN TIME W/INR Collected: 07/29/2017 Status: F Source: [place] 12:01 PM [facility] REPOSITORY TYPE CODE TESTS RESULT OUT OF RANGE REFERENCE UNITS LAB L300.4150 11.7-14.9 SECONDS Normal PROTIME 14.8 LAB L300.4200 Normal INR 1.2 Performed By: #### L300.3900 #### [facility] [address] [place], [address] BRAIN/HEAD WITHOUT Observed: 07/29/2017 Status: F Source: [facility] CONTRAST 11:40 AM [facility] REPOSITORY [facility] Imaging Services [address] [place] [address] Brain/Head without Contrast MR#: [id number] Acct: [id number] Name: AUBREY MARTIN Rep #: [id number] : 1995 M 22 From: Kayden Duran MD PCP: Care Physician, No Primary Status: PRE ER Study: Brain/Head without Contrast Date of Exam: 07/29/17 Exam# [id number] Ordering Dr: Mauricio Cole MD STUDY: CT BRAIN WITHOUT CONTRAST REASON FOR EXAM: Male, 22 years old. Confusion, overdose RADIATION DOSAGE (If Supplied By Facility): CTDIvol = ( 44.99 ) mGy, DLP = ( 1592.22 ) mGycm TECHNIQUE: Transaxial CT imaging of the brain was performed without administration of intravenous contrast material. Individualized dose optimization techniques were used for this CT. COMPARISON: 2011 FINDINGS: Normal soft tissue structures. Normal calvarium. Normal size ventricles and extra-axial spaces for the patient's age. Normal white matter tracts of the cerebral hemispheres. Normal basal ganglia and thalami. Normal brainstem. Normal cerebellum. There is no intracranial hemorrhage. There are no findings of an acute ischemic infarction. Normal visualized paranasal sinuses. CT/Brain/Head without Contrast IMPRESSION: Normal unenhanced CT scan of the brain. Electronically Signed: Bishop Duran MD at 12:18 EDT , Service support , CC: No Primary Care Physician; Mauricio Cole MD Head Porter: Signed 12 LEAD ELECTROCARDIOGRAM Observed: 06/12/2017 Status: F Source: [place] 3:29 PM [facility] REPOSITORY [facility] Cardiovascular Services [address] [place] [address] 12 Lead EKG 06/09/17 1202 MR#: [id number] Acct: [id number] Name: AUBREY MARTIN E Rep #: [id number] : 1995 22 From: Abel Rutherford MD Attending Dr: Status: DEP ER Ordering Dr: Brii Anne DO Date: 06/09/17 Location: ED Sex: M C Admitted: Test Reason : MENTAL HEALTH Blood Pressure : / mmHG Vent. Rate : 098 BPM Atrial Rate : 098 BPM P-R Int : 170 ms QRS Dur : 100 ms QT Int : 336 ms P-R-T Axes : 073 059 034 degrees QTc Int : 428 ms Normal sinus rhythm Normal ECG Confirmed by ABEL RUTHERFORD MD ([id number]), editorial clerk GENE ARMSTRONG ([id number]) on 06/12/2017 3:29:45 PM Referred By: AR Confirmed By:ABEL RUTHERFORD MD 06/12/17 1529 Date Abel Rutherford MD CC: No Primary Care Physician; Brii Anne DO Signed EMERGENCY DEPARTMENT Observed: 06/09/2017 Status: F Source: [place] SUMMARY 5:13 PM [facility] REPOSITORY [facility] Medical Records Department [address] [place] [address] Emergency Department Summary 06/09/17 1303 MR#: [id number] Acct: [id number] Name: AUBREY MARTIN Rep #: [id number] : 1995 22 From: Brii Anne DO PCP: Care Physician, No Primary Status: REG ER - ER Visit Summary Date of Service: 06/09/17 Chief Complaint: [] Auditory hallucinations History of Present Illness: The patient is a 22 M [] with a past medical history of schizophrenia disorder reports that he is not having auditory and visual hallucinations after not taking his schizophrenia medications for the last month. Denies suicidal or homicidal ideation. He reports taking Seroquel and trazodone. Physical Examination: [] Afebrile, vital signs stable. 22-year-old male no acute distress. Cardiovascular exam is regular rate and rhythm. Lungs are clear to auscultation. Abdomen is soft and nontender. Test Results: [] Laboratory work returned normal. Alcohol level negative. Tox screen positive for amphetamines and THC. EKG shows normal sinus rhythm, rate of 98 without ischemia or ectopy. Emergency Department Course and Treatment: [] Patient evaluated and medically cleared for further psychiatric evaluation. Psychiatric liaison has been contacted for further treatment and disposition. Treatment Plan: [] Patient is medically cleared and we are awaiting psychiatric liaison evaluation. Addendum: Psychiatric liaison evaluated the patient and he reports suicidal ideation and a plan to hang himself. Disposition: [] Patient will be transferred to [facility]. Impression: [] Schizoaffective disorder Medication noncompliance Auditory hallucinations Suicidal ideation This note was generated with [employer] dictation software. It may contain incorrect words, spelling, and punctuation that were not noted in review of the chart prior to signing ED Disposition - Plan for ED Patient: Chief Complaint: Mental Health Referrals: Care Physician,No Primary [Primary Care Provider] - What to do if you have Problems For any increased pain, shortness of breath, bleeding, nausea or vomiting, chest pain, or any unexpected problems, contact your Primary Care Provider. Call [facility] ([phone]) or report to the closest Emergency Room. Call 911 if necessary. 06/09/17 1713 <Electronically signed by Brii Anne DO> Date Brii Anne DO Cosigner Signature (If Indicated): Date CC: No Primary Care Physician CBC W/DIFF, AUTOMATED Collected: 06/09/2017 Status: F Source: [facility] 12:03 PM [facility] REPOSITORY TYPE CODE TESTS RESULT OUT OF RANGE REFERENCE UNITS LAB L100.1000 4.4-11.0 K/mm3 Normal WBC 7.5 LAB L100.1200 4.6-6.2 M/mm3 Normal RBC 5.41 LAB L100.1300 13.0-16.5 g/dl Normal HGB 15.8 LAB L100.1400 40-54 % Normal HCT 44.0 LAB L100.1500 80-94 fL Normal MCV 81.3 LAB L100.1600 27.0-32.0 pg Normal MCH 29.2 LAB L100.1700 32-36 g/gl Normal MCHC 35.9 LAB L100.1810 11.6-14.6 % Normal RDW CV 12.4 LAB L100.1820 35.1-43.9 fl Normal RDW SD 37.3 LAB L100.1900 150-450 K/mm3 Normal PLT 221 LAB L100.2000 6.2-12.0 fl Normal MPV 9.4 LAB L100.2100 47-70 % Normal NEUT% 63.9 LAB L100.2200 19-41 % Normal LY% 25.1 LAB L100.2300 0-10 % Normal MONO% 8.1 LAB L100.2400 0-5 % Normal EO% 1.9 LAB L100.2500 0-1 % Normal BASO% 0.9 LAB L100.2550 0.0-0.9 % Normal IM GRAN % 0.100 Result Comment: IG% - Immature Granulocytes (promyelocytes, myelocytes and metamyelocytes) > 1% indicates that a LEFT SHIFT is Present. LAB L100.2620 2.0-7.7 X10 3/uL Normal Absolute Neut 4.8 LAB L100.2720 0.83-4.51 X10 3/ul Normal Absolute Lymph 1.87 Performed By: #### L100.0100 #### [facility] [address] [place], [address] BASIC METABOLIC Collected: 06/09/2017 Status: F Source: [place] PROFILE ([facility]) 12:03 PM [facility] REPOSITORY TYPE CODE TESTS RESULT OUT OF RANGE REFERENCE UNITS LAB L501.0100 74-106 mg/dL Normal GLU 86 Result Comment: Please note revised GLUCOSE reference range effective 2017. LAB L501.1000 7-18 mg/dL Normal BUN 13 LAB L501.1100 0.70-1.30 mg/dL Normal CREAT,SERUM 1.01 Result Comment: The validity of the calculated GFR AND GFRAA in patients over 70 years has not been determined. Clinical correlation is essential. LAB L501.1110 >60 mL/min Normal EST GFR 99 Result Comment: Non- GFR Calc LAB L501.1115 >60 mL/min Normal EST GFR - AA 120 Result Comment: GFR Calc LAB L501.1255 ml/min Normal Estimated CRCL 126.99 LAB L501.1300 10-20 RATIO BUN/CRE Normal 12.9 LAB L501.2200 8.5-10 mg/dL .1 CA Normal 8.5 LAB L501.5300 136-14 mmol/L 5 NA Normal 142 LAB L501.5600 3.5-5. mmol/L 1 K Normal 3.5 LAB L501.5900 98-107 mmol/L High CL 108 LAB L501.6100 21.0-3 mmol/L 2.0 CO2 Normal 27.0 LAB L501.6200 5-15 GAP Normal 7 Performed By: #### L500.2500, L500.4050 #### [facility] [address] [place], [address] COMPREHENSIVE METABOLIC Collected: 06/09/2017 Status: F Source: [facility] 12:03 PM [facility] REPOSITORY TYPE CODE TESTS RESULT OUT OF RANGE REFERENCE UNITS LAB L501.0100 74-106 mg/dL Normal GLU 86 Result Comment: Please note revised GLUCOSE reference range effective 2017. LAB L501.1000 7-18 mg/dL Normal BUN 13 LAB L501.1100 0.70-1.30 mg/dL Normal CREAT,SERUM 1.01 Result Comment: The validity of the calculated GFR AND GFRAA in patients over 70 years has not been determined. Clinical correlation is essential. LAB L501.1110 >60 mL/min Normal EST GFR 99 Result Comment: Non- GFR Calc LAB L501.1115 >60 mL/min Normal EST GFR - AA 120 Result Comment: GFR Calc LAB L501.1255 ml/min Normal Estimated CRCL 126.99 LAB L501.1300 10-20 RATIO BUN/CRE Normal 12.9 LAB L501.2200 8.5-10 mg/dL .1 CA Normal 8.5 LAB L501.4405 16-61 U/L ALT Normal 23 Result Comment: Please note revised ALT reference range effective 2017. LAB L501.5300 136-145 mmol/L Normal NA 142 LAB L501.5600 3.5-5.1 mmol/L Normal K 3.5 LAB L501.5900 98-107 mmol/L High CL 108 LAB L501.6100 21.0-32.0 mmol/L Normal CO2 27.0 LAB L501.6200 5-15 Normal GAP 7 LAB L501.1500 6.4-8.2 g/dL Normal T PROT 7.6 LAB L501.1800 3.2-5.0 g/dL Normal ALB 4.3 LAB L501.1950 2.2-4.2 g/dL Normal GLOB 3.3 LAB L501.2000 0.9-2.4 RATIO Normal A/G 1.3 LAB L501.4100 15-37 U/L Normal AST 15 LAB L501.4305 45-117 U/L Normal ALK P 100 LAB L501.4600 0.20-1.00 mg/dL Normal T BILI 0.40 Performed By: #### L500.2500, L500.4050 #### [facility] [address] [place], [address] ALCOHOL, BLOOD Collected: 06/09/2017 Status: F Source: [place] (MEDICAL)-SERUM 12:03 PM [facility] REPOSITORY TYPE CODE TESTS RESULT OUT OF RANGE REFERENCE UNITS LAB L501.9100 mg/dL Normal SERUM < 3.0 ETOH Result Comment: The serum:whole blood ethanol ratio is approximately 1.14 and varies slightly with hematocrit. Medical Alcohol reference interval and critical value in non-tolerant individuals; 50 - 100 Impairment 100 Intoxication 100 - 250 Severe Poisoning 250 - 400 Deep/possible fatal coma Performed By: #### L501.9100 #### [facility] [address] [place], [address] URINALYSIS, COMPLETE Collected: 06/09/2017 Status: F Source: BINH 12:03 PM [facility] REPOSITORY Order Comment: Order Date: 06/09/17 How was Urine Obtained? CLEAN CATCH TYPE CODE TESTS RESULT OUT OF RANGE REFERENCE UNITS LAB L400.3000 Yellow COLOR Normal Yellow LAB L400.3050 Clear Normal CLARITY Clear LAB L400.3200 Normal mg/dl Normal GLUCOSE, UR Normal LAB L400.3300 Negative mg/dL Normal BILIRUBIN URINE Negative LAB L400.3400 Negative mg/dl Normal KETONE UR Negative LAB L400.3465 1.002-1.030 Normal SP.GR. DIPSTX 1.020 LAB L400.3550 5.0 - 8.0 pH UR Normal 5.0 LAB L400.3600 Negative mg/dl High PROT 15 DIPSTX LAB L400.3700 Normal mg/dl Normal UROBILI Normal LAB L400.3750 Negative Normal NITRITE UR Negative LAB L400.3780 Negative /ul Normal OCCULT BLOOD-UR Negative LAB L400.3800 Negative /ul LEUK Normal ESTERASE Negative LAB L400.4050 0-5 /hpf WBC 0 Normal SEEN LAB L400.4100 0-5 /hpf 0 Normal RBC-UA SEEN LAB L400.4150 0-5 /hpf SQUAM Normal EPI 0-5 SEEN LAB L400.4300 None Seen /hpf 0 Normal BACTERIA SEEN LAB L400.4350 <or=2+ /hpf 1+ Normal MUCUS, URINE LAB L400.4400 0-5 /lpf Normal HYALINE CAST 0-5 SEEN Performed By: #### L400.0001 #### [facility] [address] [place], [address] URINE DRUG SCREEN Collected: 06/09/2017 Status: F Source: BINH (CanestaTA) 11:58 AM [facility] REPOSITORY TYPE CODE TESTS RESULT OUT OF RANGE REFERENCE UNITS LAB L505.0075 TO BE Normal CONFIRMED Result Comment: CONFIRMATORY TESTING FOR ALL POSITIVE URINE DRUG SCREEN RESULTS WILL ONLY BE SENT OUT UPON PHYSICIAN ORDER. [place]esta[place] Urine Drug Screen methods provide only preliminary analytical test results. A more specific alternate chemical method must be used in order to obtain a confirmed analytical result. Gas chromatography/mass spectrometery (GC/MS) is the preferred confirmatory method. Clinical consideration and professional judgement should be applied to any drug of abuse test result, particularly when preliminary positive results are used. URINE TCA TESTING MUST BE ORDERED SEPARATELY. USE TEST MNEMONIC: [facility] LAB L505.5005 VISTA UDS PH 5 Normal LAB L505.5015 <1000 High ng/mL AMPHETAMINES POSITIVE LAB L505.5025 < 200 ng/mL BARBITIURATES Normal NEGATIVE LAB L505.5035 < 200 ng/mL BENZODIAZIPINE Normal NEGATIVE LAB L505.5045 < 300 ng/mL COCAINE Normal NEGATIVE LAB L505.5055 < 500 ng/mL ECSTACY Normal NEGATIVE LAB L505.5065 < 300 ng/mL METHADONE Normal NEGATIVE LAB L505.5075 < 300 ng/mL OPIATES Normal NEGATIVE LAB L505.5085 < 25 ng/mL PCP Normal NEGATIVE LAB L505.5095 < 50 High ng/mL THC POSITIVE Performed By: #### L505.5000 #### [facility] [address] [place], [address] ALLERGIES ALLERGIES DATE TYPE / CODE NAME / CODE REACTION SEVERITY SOURCE 07/29/2017 Drug Penicillins/F Hives Unknown [facility] Allergy/4160 [id number](RXN Hospital 22952(SNOMED ORM) Repository CT) 07/29/2017 Drug Sulfa Hives Unknown [facility] Allergy/4160 (Sulfonamide Hospital 19083(SNOMED Antibiotics)/ Repository CT) [id number](RX NORM) ENCOUNTERS ENCOUNTERS ADMIT/DISCHARGE ACCOUNT ADMITTING ENCOUNTER LOCATION SOURCE NUMBER CLASS 03/11/2018/ [id number] Emergency [place] [address] 5 [facility] ing:ED Repository 07/29/2017/ [id number] [facility], Inpatient [place] [address] [place] Encounter [facility] ing:PCURoom: Repository [id number]: 1 07/29/2017 [id number] [facility], Ambulatory BMSBuilding:B [place] [address] [place] MS.[facility] Repository 07/29/2017 [id number] [facility], Ambulatory BMSBuilding:B [place] [address] [place] MS.[facility] Repository 07/29/2017 [id number] [facility], Ambulatory BMSBuilding:B [place] [address] [place] MS.[facility] Repository 07/29/2017 [id number] [facility], Ambulatory BMSBuilding:B [place] [address] [place] MS.[facility] Repository 06/09/2017/ [id number] Emergency [place] [address] 4 [facility] ing:ED Repository PAYERS PAYERS ENCOUNTER GUARANTOR PAYER SUBSCRIBER SOURCE 03/11/2018 AUBREY [id number] Primary AUBREY E Binh N [facility] Insurance:[facility]: [facility] Number: [id number] Hospital [address]Ico: [phone] [id number] Repository [phone] (HP) Date:2018-03-11[address]ATTN: [place] [address]EN: 03/11/2018 Secondary NOT GIVENUNK [place] Insurance:SELF PAY [facility] Number: Effective Repository Date:2018-03-11 07/29/2017 Aubrey E [id number] Primary Aubrey E [place] [address] [place] Insurance:CARESOURCEP AdkinsDOB: [facility] Number: [id number] [facility] [address]Cpa: [phone] [id number] Repository [phone] (HP) Date:2017-07-29[address]ATTN: [place] [address]HP: 07/29/2017 Secondary NOT GIVENUNK [place] Insurance:SELF PAY [facility] Number: Effective Repository Date:2017-07-29 07/29/2017 Aubrey E [id number] Primary Aubrey E [place] [address] [place] Insurance:CARESOURCEP AdkinsDOB: [facility] Number: [id number] Hospital [address]Gcz: [phone] [id number] Repository [phone] () Date:2017-07-29[address]ATTN: [place] [address]SY: 07/29/2017 Secondary NOT GIVENUNK [place] Insurance:SELF PAY [facility] Number: Effective Repository Date:2017-07-29 07/29/2017 Aubrey E [id number] Primary Aubrey E [place] [address] [place] Insurance:CARESOURCEP AdkinsDOB: [facility] Number: [id number] Hospital [address]Bbh: [phone] [id number] Repository [phone] (HP) Date:2017-07-29[address]ATTN: [place] [address]CL: 07/29/2017 Secondary NOT GIVENUNK [place] Insurance:SELF PAY [facility] Number: Effective Repository Date:2017-07-29 07/29/2017 Aubrey E [id number] Primary Aubrey E Binh N [place] Insurance:CARESOURCEP AdkinsDOB: [facility] Number: [id number] Hospital [address]Dio: [phone] [id number] Repository [phone] (HP) Date:2017-07-29[address]ATTN: [place] [address]LG: 07/29/2017 Secondary NOT GIVENUNK [place] Insurance:SELF PAY [facility] Number: Effective Repository Date:2017-07-29 07/29/2017 Aubrey E [id number] Primary Aubrey E Binh N [place] Insurance:CARESOURCEP AdkinsDOB: [facility] Number: [id number] Hospital [address]Abw: [phone] [id number] Repository [phone] () Date:2017-07-29[address]ATTN: [place] [address]YT: 07/29/2017 Secondary NOT GIVENUNK [place] Insurance:SELF PAY [facility] Number: Effective Repository Date:2017-07-29 06/09/2017 Aubrey E [id number] Primary Aubrey E [place] [address] [place] Insurance:CARESOURCEP AdkinsDOB: [facility] Number: [id number] Hospital [address]Mlb: [phone] [id number] Repository [phone] () Date:2017-06-09[address]ATTN: [place] [address]KR: 06/09/2017 Secondary NOT GIVENUNK Binh Insurance:SELF PAY [facility] Number: Effective Repository Date:2017-06-09
== END 2018-03-11 19:32 ==
PROVIDERS: Emergency Provider Emergency Medicine
DX: R45.851 Suicidal ideations (principal); E87.6 Hypokalemia; F32.9 Major depressive disorder, single episode, unspecified; F41.9 Anxiety disorder, unspecified; Z72.0 Tobacco use; F25.9 Schizoaffective disorder, unspecified; F15.20 Other stimulant dependence, uncomplicated
CPT/HCPCS: 80053; 80307; 80320; 85025; 99284; G0480

== ENCOUNTER 2018-08-08 14:52 | Emergency (ER) | payer SELFPAY ==
[2018-08-08] VITALS (8 sets, daily range): BP systolic 124–151; BP diastolic 63–87; PULSE 77–103; RESP 15–21; TEMP 36.4; O2SAT 98–100; BMI 29.8
--- NOTE | 2018-08-08 15:20 | ED.DCSUM_ITS ---
- ER Visit Summary Date of Service: 08/08/18 Chief Complaint: Suicidal History of Present Illness: The patient is a 23 M who reports suicidal thoughts for the last several months. Patient states he just does not want to live anymore. He has a plan to cut his throat but states he does not want to hurt his family so he came in to get help. He has attempted suicide in the past with overdose. He was last hospitalized approximately a year ago. Patient states he has not seen the counseling center in approximately 3 months. He stopped taking his medications about that time as well because he did not like the way they made him feel. He does admit to auditory hallucinations with multiple voices screaming at him. Physical Examination: Blood pressure is 151/84, temperature 97.6, heart rate 103, respiratory rate 15, pulse ox 99% on room air. Patient sitting upright in bed. He stares at his hands. He does not make eye contact. He speaks in a very quiet voice. Head and neck examination is grossly unremarkable. Heart is regular rate and rhythm. Lung sounds are clear. Abdomen is soft and nontender. Psychiatric evaluation reveals a depressed affect with suicidal thoughts and plan. Test Results: CBC and chemistry studies significant for potassium 3.0. Tox is positive for amphetamines and benzos. EtOH is negative. Emergency Department Course and Treatment: Patient had IV established and patient was placed on compliance monitor. EKG is sinus 86 with no acute ischemia. Patient was given 20 mEq of potassium chloride through the IV and 40 mEq p.o. 1 hour after the IV potassium was completed a repeat potassium level was drawn and was 3.3. Patient was given an additional 40 mCi of p.o. potassium 6 hours after his first p.o. dose. LFTs were added and unremarkable. Saima from the counseling center evaluated the patient and has referred him to [facility] for admission. Treatment Plan: [] Disposition: Transfer Impression: Suicidal ideation This note was generated with [employer] dictation software. It may contain incorrect words, spelling, and punctuation that were not noted in review of the chart prior to signing ED Disposition - Plan for ED Patient: Referrals: Care Physician,No Primary [Primary Care Provider] -
[2018-08-08 15:31] LABS: Absolute Lymphocyte Count 2.66 X10^3/ul (0.83-4.51); Absolute Neutrophil Count 4.7 X10^3/uL (2.0-7.7); Basophil# 0.06 X10^3/uL; Basophil% 0.7 % (0-1); Eosinophils% 3.6 % (0-5); Hematocrit 43.5 % (40-54); Hemoglobin 15.4 g/dl (13.0-16.5); Lymphocyte # 2.66 X10^3/ul (4.0); Lymphocyte % 31.5 % (19-41); Mean Corp Hgb Conc 35.4 g/gl (32-36); Mean Corpuscular Hgb 27.9 pg (27.0-32.0); Mean Corpuscular Volume 78.9 fL (80-94); Mean Platelet Vol. 9.5 fl (6.2-12.0); Monocyte# 0.67 X10^3/uL; Monocyte% 7.9 % (0-10); Neutrophil # 4.74 X10^3/uL (2.7-7.7); Neutrophil % 56.2 % (47-70); Platelet Count 265 K/mm3 (150-450); RBC Distribution Width SD 37.5 fl (35.1-43.9); Red Blood Count 5.51 M/mm3 (4.6-6.2); White Blood Count 8.4 K/mm3 (4.4-11.0)
[2018-08-08 15:34] LABS: POSITIVE COUNT NO; POSITIVE DIFFERENTIAL NO; POSITIVE MORPHOLOGY NO
[2018-08-08 15:45] LABS: Anion Gap 3 (5-15); BUN 13 mg/dL (7-18); BUN/Creat Ratio 14.1 RATIO (10-20); Calcium,Total 8.6 mg/dL (8.5-10.1); Chloride 103 mmol/L (98-107); Creatinine, Serum 0.92 mg/dL (0.70-1.30); EST Glomerular Filtration Rate 109 mL/min (>60); Est Glom Filt Rate - Afr Amer 132 mL/min (>60); Estimated Creatinine Clearance 138.24 ml/min; Glucose 79 mg/dL (74-106); Sodium Level 140 mmol/L (136-145)
--- NOTE | 2018-08-08 16:18 | EKG12_ITS ---
Test Reason : SUICIDAL Blood Pressure : / mmHG Vent. Rate : 086 BPM Atrial Rate : 086 BPM P-R Int : 156 ms QRS Dur : 108 ms QT Int : 388 ms P-R-T Axes : 034 068 020 degrees QTc Int : 464 ms Normal sinus rhythm Normal ECG Confirmed by CHARLES SMITH ([id number]), publication editor LUIS SEVILLA ([id number]) on 08/11/2018 1:53:17 PM Referred By: RON Confirmed By:CHARLES SMITH
[2018-08-08] MEDS: Potassium Chloride 10mEq/100mL 10 MEQ/100 ML IV.SOLN. 100 MEQ IV BOLUS ×2 (16:55→18:17)
[2018-08-08 17:33] LABS: Amphetamine Urine VISTA POSITIVE (<1000 ng/mL); Barbiturate Urine VISTA NEGATIVE (< 200 ng/mL); Benzodiazepine Urine VISTA POSITIVE (< 200 ng/mL); Cocaine Urine VISTA NEGATIVE (< 300 ng/mL); Ecstacy Urine VISTA NEGATIVE (< 500 ng/mL); Methadone Urine VISTA NEGATIVE (< 300 ng/mL); PCP Urine VISTA NEGATIVE (< 25 ng/mL); THC Urine VISTA NEGATIVE (< 50 ng/mL); Vista UDS pH Range 6
--- NOTE | 2018-08-08 18:21 | ED.RN ---
Pt alert and cooperative. Pleasant.
--- NOTE | 2018-08-08 19:41 | ED.RN ---
[facility] CONTACTED TO SEE PT
[2018-08-08 20:49] LABS: Potassium 3.3 mmol/L (3.5-5.1)
[2018-08-08 23:59] LABS: AST(SGOT) 20 U/L (15-37); Alanine Aminotransfer ALT/SGPT 25 U/L (16-61); Albumin, Serum 3.5 g/dL (3.2-5.0); Alkaline Phosphatase 90 U/L (45-117); Bilirubin, Direct 0.13 mg/dL (0.00-0.30); Globulin 2.6 g/dL (2.2-4.2); Protein, Total 6.1 g/dL (6.4-8.2)
[2018-08-09] VITALS (10 sets, daily range): BP systolic 122–137; BP diastolic 50–88; PULSE 63–90; RESP 13–24; TEMP 36.7; O2SAT 93–100
--- NOTE | 2018-08-09 07:50 | ED.RN ---
Pt sleeping no distress. Sitter in room.
--- NOTE | 2018-08-09 08:04 | NURSING ---
CALLED [facility] FOR TRANSPORT
--- NOTE | 2018-08-09 08:38 | ED.RN ---
Pt transported to [place] by [facility]. Report update called to Shira. Pt slept during this shift without incident.
== END 2018-08-09 08:44 ==
PROVIDERS: Emergency Provider Emergency Medicine
DX: R45.851 Suicidal ideations (principal); F32.9 Major depressive disorder, single episode, unspecified; Z72.0 Tobacco use; R44.0 Auditory hallucinations
CPT/HCPCS: 36415; 80048; 80076; 80307; 80320; 84132; 85025; 93005; 96360; 96361; 99285; J7030; A4216; G0480

== ENCOUNTER 2018-11-04 14:56 | Emergency (ER) | payer MEDICAID, SELFPAY ==
[2018-08-08 14:54] VITALS: BMI 29.8
[2018-11-04 14:57] VITALS: BP 145/89; PULSE 94; RESP 16; TEMP 36.2; O2SAT 98; BMI 28.5
[2018-11-04 15:01] VITALS: BP 145/89; PULSE 94; RESP 18; TEMP 36.2; O2SAT 98; BMI 28.5
[2018-11-04 16:11] VITALS: BP 142/80; PULSE 90; RESP 14; O2SAT 98
[2018-11-04 16:16] LABS: Absolute Lymphocyte Count 2.34 X10^3/uL (0.83-4.51); Absolute Neutrophil Count 4.8 X10^3/uL (2.0-7.7); Basophil# 0.08 X10^3/uL; Eosinophil# 0.39 X10^3/uL; Eosinophils% 4.7 % (0-5); Hematocrit 49.2 % (40-54); Hemoglobin 16.7 g/dL (13.0-16.5); Lymphocyte # 2.34 X10^3/ul (4.0); Lymphocyte % 28.2 % (19-41); Mean Corp Hgb Conc 33.9 g/dL (32-36); Mean Corpuscular Hgb 28.6 pg (27.0-32.0); Mean Corpuscular Volume 84.4 fL (80-94); Mean Platelet Vol. 9.5 fl (6.2-12.0); Monocyte% 8.4 % (0-10); NRBC Flagged by Analyzer 0 % (0-5); Neutrophil # 4.78 X10^3/uL (2.7-7.7); Neutrophil % 57.5 % (47-70); Platelet Count 236 K/mm3 (150-450); RBC Distribution Width CV 12.4 % (11.6-14.6); RBC Distribution Width SD 37.9 fl (35.1-43.9); Red Blood Count 5.83 M/mm3 (4.6-6.2); White Blood Count 8.3 K/mm3 (4.4-11.0)
--- NOTE | 2018-11-04 16:29 | ED.DCSUM_ITS ---
- ER Visit Summary Date of Service: 11/04/18 Chief Complaint: Suicidal ideation History of Present Illness: The patient is a 23 M who presents with suicidal ideation that began yesterday. Patient states he is having thoughts of pain himself. Patient has a history of depression and has had suicidal thoughts in the past. Patient sees Dr. Casper as his psychiatrist. Patient states nothing is made his suicidal ideations better or worse. Patient states nothing triggered his suicidal ideation. Physical Examination: Total signs are stable. Patient is afebrile. Patient is in no acute distress. Oral mucosa is pink and moist. Neck is supple. Trachea is midline. There is no JVD. Heart was regular rate and rhythm. Lungs are clear and equal bilaterally. Abdomen is soft and nontender. Cranial nerves II through XII are intact. There are no focal motor or sensory deficits noted. Patient does have a flat affect depressed mood. Patient admits to suicidal ideation with plans to hang himself. Test Results: CBC and basic metabolic profile were obtained and were within normal limits. Urine tox was positive for amphetamines and cannabinoids. Serum alcohol level was normal. Emergency Department Course and Treatment: Crisis counselor was in to evaluate the patient. She felt the patient would benefit from hospitalization. She filled out a pink slip. She is attempting to find placement for the patient. Disposition: Transfer to psychiatric facility Impression: Depression with suicidal ideation This note was generated with [employer] dictation software. It may contain incorrect words, spelling, and punctuation that were not noted in review of the chart prior to signing ED Disposition - Plan for ED Patient: Disposition: Psychiatric Hospital or Unit Diagnosis: Depression, Suicidal ideation Referrals: Care Physician,No Primary [Primary Care Provider] -
[2018-11-04 16:35] LABS: Anion Gap 6 (5-15); BUN 16 mg/dL (7-18); BUN/Creat Ratio 16.4 RATIO (10-20); Chloride 107 mmol/L (98-107); Creatinine, Serum 0.98 mg/dL (0.70-1.30); EST Glomerular Filtration Rate 102 mL/min (>60); Est Glom Filt Rate - Afr Amer 123 mL/min (>60); Estimated Creatinine Clearance 129.77 ml/min; Glucose 105 mg/dL (74-106); Potassium 3.4 mmol/L (3.5-5.1); Sodium Level 140 mmol/L (136-145)
--- NOTE | 2018-11-04 16:35 | CM.ED ---
SOCIAL WORK PATIENT PRESENTS WITH SUICIDAL IDEATION. PATIENT IS SELF PAY. CRISIS TO EVALUATE ONCE MEDICALLY CLEARED. STAFF UPDATED. LISSETTE DEWITT, ROAD BOSS, COMMISSIONING EDITOR.
--- NOTE | 2018-11-04 17:53 | NURSING ---
GUSTAVO, NATI, CALLED. SHE IS ON HER WAY
[2018-11-04 17:56] LABS: Amphetamine Urine VISTA POSITIVE (<1000 ng/mL); Barbiturate Urine VISTA NEGATIVE (< 200 ng/mL); Benzodiazepine Urine VISTA NEGATIVE (< 200 ng/mL); Cocaine Urine VISTA NEGATIVE (< 300 ng/mL); Ecstacy Urine VISTA NEGATIVE (< 500 ng/mL); Methadone Urine VISTA NEGATIVE (< 300 ng/mL); PCP Urine VISTA NEGATIVE (< 25 ng/mL); THC Urine VISTA POSITIVE (< 50 ng/mL); Vista UDS pH Range 5
--- NOTE | 2018-11-04 18:20 | NURSING ---
GUSTAVO, CRISIS, HERE
--- NOTE | 2018-11-04 19:33 | CM.ED ---
SOCIAL WORK UPDATED WITH GUSTAVO FROM CRISIS, REFERRAL HAS BEEN FAXED TO [facility]. LISSETTE DEWITT, AWS SOLUTION ARCHITECT, [facility].
--- NOTE | 2018-11-04 20:56 | EKG12_ITS ---
Test Reason : Blood Pressure : / mmHG Vent. Rate : 057 BPM Atrial Rate : 057 BPM P-R Int : 160 ms QRS Dur : 100 ms QT Int : 408 ms P-R-T Axes : 061 082 054 degrees QTc Int : 397 ms Sinus bradycardia RSR' or QR pattern in V1 suggests right ventricular conduction delay Borderline ECG Confirmed by CHARLES SMITH ([id number]), subeditor LUIS SEVILLA ([id number]) on 11/10/2018 2:14:44 PM Referred By: Gabriel Davenport Confirmed By:CHARLES SMITH
--- NOTE | 2018-11-04 21:09 | CM.ED ---
SOCIAL WORK RESULTS OF EKG AND URINE TOX SCREEN FAXED TO [facility] PER REQUEST. LISSETTE DEWITT, BATTER OUT, CONDUIT CLEANER.
[2018-11-04 22:09] VITALS: BP 124/78; PULSE 80; RESP 14; O2SAT 98
--- NOTE | 2018-11-04 22:33 | ED.RN ---
patient refused to wake up to confirm/request routine night time meds, asleep and resting comfortably at this time.
[2018-11-05] VITALS (7 sets, daily range): BP systolic 116–137; BP diastolic 53–65; PULSE 53–78; RESP 14–16; O2SAT 98–100
--- NOTE | 2018-11-05 07:49 | ED.RN ---
pt sleeping with no distress noted. Sitter in room.
--- NOTE | 2018-11-05 11:57 | ED.RN ---
PT RESTING QUIETLY IN BED, DENIES NEEDS, NO SIGNS OF DISTRESS. VISITOR AT BEDSIDE.
[2018-11-05] MEDS: QUEtiapine 100 MG Tablet PO (12:43)
[2018-11-05] MEDS: hydrOXYzine PAM 25 MG Capsule 50 MG PO (12:43)
[2018-11-05] MEDS: ARIPiprazole 5 MG Tablet 15 MG PO (12:44)
== END 2018-11-05 15:36 ==
PROVIDERS: Emergency Provider Emergency Medicine; Referring Provider Hospitalist
DX: R45.851 Suicidal ideations (principal); F32.9 Major depressive disorder, single episode, unspecified; F17.210 Nicotine dependence, cigarettes, uncomplicated
CPT/HCPCS: 80048; 80307; 80320; 85025; 93005; 99284; G0480

== ENCOUNTER 2021-11-17 17:23 | Emergency (ER) | payer MEDICAID, SELFPAY ==
[2021-11-17 17:24] VITALS: BP 157/88; PULSE 119; RESP 16; TEMP 36.6; O2SAT 98; BMI 33.2
[2021-11-17 19:20] VITALS: RESP 16
--- NOTE | 2021-11-17 19:47 | EX.ED.VIS.PS ---
HPI HPI - Psych History of Present Illness Chief Complaint: Suicidal Informant: patient Narrative Narrative: Patient is a 26-year-old male with history of drug abuse, schizophrenia and schizoaffective disorder presenting for suicidal ideations and auditory hallucinations. Patient was followed with a counseling center and missed appointments he is been off of his medications for the past 1 to 2 months. Since then the voices have been back. He describes them as a constant screaming in his head. He does not know what they are saying. He started to have worsening suicidal thoughts and today thought about walking into traffic [place] He states he did not do it because he did not want to do that to other people. He does have a prior suicide attempt in 2017 or 2018. He believes he used to be on Seroquel and trazodone. He uses tobacco and marijuana but denies any alcohol or illicit drug use. Denies any other complaints at this time. PFSH PFSH Home Medications aripiprazole 15 mg tablet 15 mg PO DAILY 11/04/18 [History Last Taken Unknown] hydroxyzine HCl 50 mg tablet 1 tab PO DAILY 11/04/18 [History Last Taken Unknown] quetiapine 100 mg tablet 1 tab PO DAILY 11/04/18 [History Last Taken Unknown] trazodone 50 mg tablet 100 mg PO QHS 11/04/18 [History Last Taken Unknown] Allergy/AdvReac Type Severity Reaction Status Date / Time Penicillins Allergy Hives Verified 11/17/21 17:26 Sulfa (Sulfonamide Allergy Hives Verified 11/17/21 17:26 Antibiotics) Social History Smoking Status: Current every day smoker tobacco type: cigarettes ROS ROS ED Constitutional Constitutional ED: Denies chills or fever(s) Eyes Eyes: Denies blurry vision or loss of vision ENT ENT ED: Denies rhinorrhea or sore throat Cardiovascular Cardiovascular: Denies chest pain or dizziness Respiratory/Chest Respiratory/Chest: Denies cough or dyspnea Gastrointestinal Gastrointestinal: Denies nausea or vomiting Genitourinary Genitourinary ED: Denies dysuria or hematuria Musculoskeletal Musculoskeletal: Denies arthralgias or myalgias Integumentary Denies rash or wounds Neurologic Neurologic: Denies focal weakness or headache(s) Psychiatric Psychiatric: Reports depression, suicidal ideation and other Details: Auditory hallucinations ; Denies anxiety or behavioral changes EXAM Physical Exam Const Vital Signs: 11/17/21 17:24 11/17/21 19:20 11/18/21 01:00 Temperature 98 F 97.9 F Temperature Source Temporal Oral Pulse Rate 119 H 60 Respiratory Rate 16 16 15 Blood Pressure 157/88 H 138/70 H Blood Pressure Mean 111 92 Pulse Ox 98 95 Oxygen Delivery Method Room Air Room Air Positive well nourished, well developed and no apparent distress General Appearance ED: well developed HEENT Reports normocephalic atraumatic Nose: no nasal discharge External Ear: external ears normal Mouth ED: Yes moist mucous membranes normal Eyes PERRL and EOMs intact bilaterally Neck full ROM and no meningeal signs Chest Wall inspection of chest normal Resp normal respiratory effort and normal air movement Cardio regular rate and regular rhythm GI normal to inspection, nondistended, normoactive bowel sounds Extremity normal to inspection and full ROM Neuro oriented x3 and no focal motor deficits Psych speech normal and activity/motor behavior normal Appearance: disheveled Attitude: calm Activity / Motor Behavior: appropriate eye contact Speech: normal speech Mood & Affect: depressed Thought Content: suicidality and hallucination(s) Attention / Concentration: attention grossly intact Memory / Cognition: memory grossly intact Insight: fair Skin no rashes or lesions noted and no wounds MDM MDM MDM Narrative Medical decision making narrative: Patient is evaluated for suicidal ideations with a plan. He is been off his medications. Patient will be pink slipped. He will be medically cleared and presented to psychiatry. Patient is medically cleared. He is hyperglycemic however he is eating candy bars in the ER and asymptomatic. He is accepted at [facility] by Dr. Larry. Lab Data Attestation: I reviewed the patient's lab results. Labs: Laboratory Results - last 24 hr 11/17/21 11/17/21 11/17/21 19:05 19:05 19:05 WBC 9.0 RBC 5.56 Hgb 16.4 Hct 46.6 MCV 83.8 MCH 29.5 MCHC 35.2 RDW Std Deviation 39.6 RDW Coeff of Jennifer 12.8 Plt Count 232 MPV 9.3 Immature Gran % (Auto) 0.200 Neut % (Auto) 48.7 Lymph % (Auto) 37.4 Luna % (Auto) 9.6 Eos % (Auto) 3.2 Baso % (Auto) 0.9 Absolute Neuts (auto) 4.4 Absolute Lymphs (auto) 3.36 Nucleated RBC % 0 Sodium 141 Potassium 4.0 Chloride 107 Carbon Dioxide 29.0 Anion Gap 5 BUN 18 Creatinine 1.25 Estim Creat Clear Calc 99.16 Est GFR (MDRD) Af Amer 90 Est GFR (MDRD) Non-Af 74 BUN/Creatinine Ratio 14.4 Glucose 66 L Calcium 9.1 Urine Opiates Screen Urine Methadone Screen Ur Barbiturates Screen Ur Phencyclidine Scrn Ur Amphetamines Screen MDMA (Ecstasy) Screen U Benzodiazepines Scrn Urine Cocaine Screen U Cannabinoids Screen Ur Drug Screen Comment Ethyl Alcohol < 3.0 11/17/21 19:05 WBC RBC Hgb Hct MCV MCH MCHC RDW Std Deviation RDW Coeff of Jennifer Plt Count MPV Immature Gran % (Auto) Neut % (Auto) Lymph % (Auto) Luna % (Auto) Eos % (Auto) Baso % (Auto) Absolute Neuts (auto) Absolute Lymphs (auto) Nucleated RBC % Sodium Potassium Chloride Carbon Dioxide Anion Gap BUN Creatinine Estim Creat Clear Calc Est GFR (MDRD) Af Amer Est GFR (MDRD) Non-Af BUN/Creatinine Ratio Glucose Calcium Urine Opiates Screen NEGATIVE Urine Methadone Screen NEGATIVE Ur Barbiturates Screen NEGATIVE Ur Phencyclidine Scrn NEGATIVE Ur Amphetamines Screen POSITIVE H MDMA (Ecstasy) Screen NEGATIVE U Benzodiazepines Scrn NEGATIVE Urine Cocaine Screen NEGATIVE U Cannabinoids Screen POSITIVE H Ur Drug Screen Comment Ethyl Alcohol Discharge Plan Triage Chief Complaint: Suicidal ED Provider: Cathy Chavira Dx/Rx/DC Orders Clinical Impression: Schizophrenia, Depression, Suicidal ideation Prescriptions: No Action trazodone 50 MG tablet 100 mg PO QHS hydroxyzine HCl 50 mg tablet 1 tab PO DAILY Label Comments: Take 1 tablet by mouth twice a day as needed quetiapine 100 mg tablet 1 tab PO DAILY Label Comments: Take 1 tablet by mouth every night aripiprazole 15 mg tablet 15 mg PO DAILY Label Comments: Take 1 tablet by mouth once a day Primary Care Provider: Care Physician,No Primary Referrals: Care Physician,No Primary [Primary Care Provider] - Disposition Disposition: Psychiatric Hospital or Unit Discharge Location: [facility]
[2021-11-17 19:49] LABS: Amphetamine Urine VISTA POSITIVE (<1000 ng/mL); Barbiturate Urine VISTA NEGATIVE (< 200 ng/mL); Benzodiazepine Urine VISTA NEGATIVE (< 200 ng/mL); Cocaine Urine VISTA NEGATIVE (< 300 ng/mL); Ecstacy Urine VISTA NEGATIVE (< 500 ng/mL); Methadone Urine VISTA NEGATIVE (< 300 ng/mL); PCP Urine VISTA NEGATIVE (< 25 ng/mL); THC Urine VISTA POSITIVE (< 50 ng/mL); Vista UDS pH Range 4
[2021-11-17 19:54] LABS: Absolute Lymphocyte Count 3.36 X10^3/uL (0.83-4.51); Absolute Neutrophil Count 4.4 X10^3/uL (2.0-7.7); Basophil# 0.08 X10^3/uL; Basophil% 0.9 % (0-1); Eosinophil# 0.29 X10^3/uL; Eosinophils% 3.2 % (0-5); Hematocrit 46.6 % (40-54); Hemoglobin 16.4 g/dL (13.0-16.5); Lymphocyte # 3.36 X10^3/ul (0.83-4.51); Lymphocyte % 37.4 % (19-41); Mean Corp Hgb Conc 35.2 g/dL (32-36); Mean Corpuscular Hgb 29.5 pg (27.0-32.0); Mean Corpuscular Volume 83.8 fL (80-94); Mean Platelet Vol. 9.3 fl (6.2-12.0); Monocyte# 0.86 X10^3/uL; Monocyte% 9.6 % (0-10); NRBC Flagged by Analyzer 0 % (0-5); Neutrophil # 4.37 X10^3/uL (2.7-7.7); Neutrophil % 48.7 % (47-70); Platelet Count 232 K/mm3 (150-450); RBC Distribution Width CV 12.8 % (11.6-14.6); RBC Distribution Width SD 39.6 fl (35.1-43.9); Red Blood Count 5.56 M/mm3 (4.6-6.2)
[2021-11-17 19:57] LABS: Alcohol, Blood (Medical)-Serum < 3.0 mg/dL
[2021-11-17 19:59] LABS: Anion Gap 5 (5-15); BUN 18 mg/dL (7-18); BUN/Creat Ratio 14.4 RATIO (10-20); Calcium,Total 9.1 mg/dL (8.5-10.1); Chloride 107 mmol/L (98-107); Creatinine, Serum 1.25 mg/dL (0.70-1.30); EST Glomerular Filtration Rate 74 mL/min (>60); Est Glom Filt Rate - Afr Amer 90 mL/min (>60); Estimated Creatinine Clearance 99.16 ml/min; Glucose 66 mg/dL (74-106); Sodium Level 141 mmol/L (136-145)
--- NOTE | 2021-11-17 20:04 | CM.ED ---
Social Work Assessment Social Work Psychiatric Assessment Reason for consult: Suicidal Informant(s): Pt Chief Complaint: Pt states that he has been off his medications for 2 months. Pt states that the voices are back and he feels like he wants to kill himself. Pt states that he thought about walking into traffic. [place] Pt states that he is not able to sleep. Marital/Social History: Marital Status: Single Identified Gender: Male Sexual Orientation: Straight Living Situation: Pt states that he lives in [place] with his mother and her boyfriend. Support/Resources: Pt states that his mother and brother are good support. History: None Education and Employment History: Pt states that he does not work. Pt states that he did not graduate High School. Pt states that the highest grade he completed was 11th grade. Pt states that he turned 19 and he started to get charge with truancy so he decided to stop going to school. Mental Health Treatment/History: Yes. Pt states that he has been diagnosed with Schizoaffective Disorder. Pt states that he was seeing Dr. Uribe at [facility]. Pt states that he was seeing Dr. Uribe every three months. Pt states he does not know when the last time was that he saw Dr. Uribe. Pt states that he was taking Seroquel and Trazodone. Pt states that he ran out of his medications and states that the side effects were bad. Pt states that he has been to psychiatric hospitals before and states he has been to [facility] and [facility]. Pt states that he was last hospitalized in a psych hospital was in 2020. Pt states he was hospitalized for suicidal thoughts. Triggers/Stressors: Pt states the voices/situation he?s in. Coping Skills: Pt states that he likes to go for walks, states that it clears his mind. Abuse Issues: Pt states none. Substance Abuse Hx: Pt states he currently smokes marijuana. Pt states that he last smoked marijuana yesterday to try and get some sleep. Pt states that he used to use amphetamines, states that he only uses Marijuana now. Risk to Self/Others: ? Suicidal: Pt with current suicidal thoughts and plans. Pt states that his plan is to walk into traffic [place]. Pt states that he wants to and he wants to kill himself. Pt states that he has past history of suicide attempts. Pt states that in 2017/2018 he attempted suicide by overdosing on his medications. Pt states that he overdosed with the intent to kill himself. Pt states ?I was planning on not waking up.? Pt states that he if he wouldn?t of came in today, he would?ve done it. Pt states that he did not walk towards the highway. SW asked pt what stopped him from attempting today and pt states ?the last time I attempted, the pain it caused my mother and brother.? Pt states that his mother and brother would miss him if he was gone. SW asked pt on a scale of 1-10 with one being the lowest and ten being the highest, what is pt?s intent on killing self and pt states ?10.? ? Homicidal: None ? Violence: None Mental Status Exam: Orientation: Pt is alert and orientated x4. Memory: Fair Appearance/General Behavior: Clean/appropriate Mood/Affect: Appropriate Communication Pattern: Responds to questions Thought Process: Hallucinations A/V, delusions. Pt states that he has both auditory and visual hallucinations. Pt states that he hears voices and they are ?constantly screaming? and it is ?Constant noise.? Pt states that ?it is almost impossible to focus on anything else.? Pt states that the voices do not tell him to hurt himself and they do not tell him to hurt other people. Pt states that he will see things that are not there and states that he see?s shadows. Pt states that it is hard to tell what are delusions vs what is real. Pt states that he does not sleep. General Intellectual Functioning: Below Average Judgment: Poor Insight: Poor Pt with current suicidal thoughts and plan of waking into traffic [place]. Pt states that he wants to kill himself and that he wants to . Pt rates his intent at a 10 on killing himself. Pt has been off his medications for two months. Pt states that he is not able to sleep. Pt with auditory and visual hallucinations. SW discussed with MD Chavira and recommendation is inpatient psychiatric hospitalization for Medication Management and Crisis Stabilization. Plan: Inpatient psychiatric hospitalization for Medication Management and Crisis Stabilization. Leandra Alexis VIBRATING SCREED OPERATOR, CROP PEST CONTROL SPECIALIST
--- NOTE | 2021-11-17 20:26 | CM.ED ---
Addendum entered by Leandra Alexis 11/17/21 20:40: ROMAIN also faxed referral to [facility]. Original Note: Social Work Note SW reviewed chart and pt has straight Medicaid insurance. Pt can only go to an inpatient psych unit that is attached to a medical hospital. ROMAIN faxed referrals to [facility], [facility] and [facility]. Leandra Alexis ANHYDROUS AMMONIA PRODUCTION SUPERVISOR, GENERAL MACHINIST
--- NOTE | 2021-11-17 21:36 | CM.ED ---
Addendum entered by Leandra Alexis 11/17/21 21:44: SW placed a call to [facility] and updated them to disregard referral. SW placed a call to [facility] and updated them to disregard referral. SW placed a call to [facility] and left message to disregard referral. Original Note: Social Work Note SW received a call from [facility] stating they are showing pt has [employer] insurance and not straight Medicaid. They looked up pt's insurance information and [employer] is showing as providing coverage for inpatient psych. [facility] is able to accept pt. Accepting physician is Dr. Laron KAMARA. Pt is [facility]. RN to RN [phone]. SW updated MD Chavira. SW updated RN. SW gave palliative medicine physician form and [place]. SW updated Pt on acceptance to [facility]. Pt states understanding. Plan: [facility] Leandra Alexis BUILDING REPAIR MAINTENANCE SUPERVISOR, PRINT INSPECTOR
--- NOTE | 2021-11-17 21:45 | ED.RN ---
Physicians ETA 3-4 hours.
--- NOTE | 2021-11-17 22:04 | ED.RN ---
Report called to [facility].
[2021-11-18 01:00] VITALS: BP 138/70; PULSE 60; RESP 15; TEMP 36.6; O2SAT 95
[2021-11-18 02:00] VITALS: RESP 16
[2021-11-18 02:02] VITALS: BP 138/70; PULSE 60; RESP 15; TEMP 36.6; O2SAT 95
== END 2021-11-18 02:04 ==
PROVIDERS: Emergency Provider Emergency Medicine; Visit Provider Emergency Medicine
DX: F20.9 Schizophrenia, unspecified (principal); R73.9 Hyperglycemia, unspecified; F32.A Depression, unspecified; F17.210 Nicotine dependence, cigarettes, uncomplicated; R45.851 Suicidal ideations
CPT/HCPCS: 80048; 80307; 82077; 85025; 87811; 99283

== ENCOUNTER 2022-11-16 12:55 | Emergency (ER) | payer MEDICAID, SELFPAY ==
[2022-11-16 12:58] VITALS: BP 113/78; PULSE 118; RESP 16; TEMP 36.1; O2SAT 100; BMI 32.5
--- NOTE | 2022-11-16 13:22 | EKG12_ITS ---
Test Reason : Blood Pressure : / mmHG Vent. Rate : 102 BPM Atrial Rate : 102 BPM P-R Int : 176 ms QRS Dur : 102 ms QT Int : 344 ms P-R-T Axes : 063 053 034 degrees QTc Int : 448 ms Sinus tachycardia Otherwise normal ECG Confirmed by CHRISTIE AMOR ([id number]), editorial writer MEJIA PATEL ([id number]) on 11/19/2022 2:12:32 PM Referred By: Confirmed By:CHRISTIE AMOR
--- NOTE | 2022-11-16 13:23 | EX.ED.VIS.PS ---
HPI HPI - Psych History of Present Illness Chief Complaint: Suicidal Informant: patient Narrative Narrative: 27-year-old male chronic history of schizophrenia presenting to the emergency department with worsening auditory hallucinations and developed being suicidal thoughts. Patient states that he has been off his Seroquel for the past couple weeks. He has not seen psychiatry for about 2 months. He is supposed to see psychiatry monthly. He has effectively been homeless sleeping with friends here and there. He states that he last used cannabis 2 to 3 days ago and last used methamphetamines about 3 days ago. When asked why he uses amphetamines he states as long as he is going to be awake he might as well do drugs to make him less angry about being awake. He states that Seroquel is the only thing that helps him sleep at night to calm the voices but it is short-lived. He is distraught about his future and the long-term sequelae of schizophrenia. Patient states he does not feel like he is a danger to anybody else but himself. He has been cooperative with staff. Last hospitalization was 1 year ago. Patient states that he physically feels fine other than being tired. [facility] Medical History Schizo affective schizophrenia Home Medications aripiprazole 15 mg tablet 15 mg PO DAILY 11/04/18 [History Last Taken Unknown] hydroxyzine HCl 50 mg tablet 1 tab PO DAILY 11/04/18 [History Last Taken Unknown] quetiapine 100 mg tablet 1 tab PO DAILY 11/04/18 [History Last Taken Unknown] trazodone 50 mg tablet 100 mg PO QHS 11/04/18 [History Last Taken Unknown] Allergy/AdvReac Type Severity Reaction Status Date / Time Penicillins Allergy Hives Verified 11/16/22 12:58 Sulfa (Sulfonamide Allergy Hives Verified 11/16/22 12:58 Antibiotics) Social History Smoking Status: Current every day smoker tobacco type: cigarettes ROS ROS ED Constitutional Constitutional ED: Denies chills or weight loss Eyes Eyes: Denies change in vision or diplopia ENT ENT ED: Denies ear pain, rhinorrhea or sore throat Cardiovascular Cardiovascular: Denies chest pain, orthopnea, palpitations or racing heartbeat Respiratory/Chest Respiratory/Chest: Denies cough, dyspnea or orthopnea Gastrointestinal Gastrointestinal: Denies abdominal pain, diarrhea, nausea or vomiting Genitourinary Genitourinary ED: Denies dysuria, hematuria or urinary frequency Musculoskeletal Musculoskeletal: Denies arthralgias or myalgias Integumentary Denies abscess or rash Neurologic Neurologic: Denies headache(s) or weakness Psychiatric Psychiatric: Reports suicidal ideation, suicidal thoughts and other Details: Auditory hallucinations of many voices ; Denies anxiety or depression Endocrine Endocrinology: Denies polydipsia, polyphagia or polyuria Allergic/Immunologic Allergic/Immunologic ED: Denies mouth swelling, tongue swelling or urticaria EXAM Physical Exam Const Vital Signs: 11/16/22 12:58 Temperature 96.9 F L Temperature Source Temporal Pulse Rate 118 H Respiratory Rate 16 Blood Pressure 113/78 Blood Pressure Mean 89 Pulse Ox 100 Oxygen Delivery Method Room Air Positive well nourished and well developed General Appearance ED: well developed HEENT Reports normocephalic, head/scalp atraumatic and moist mucous membranes Eyes PERRL and EOMs intact bilaterally Neck no lymphadenopathy, supple and no JVD Resp normal respiratory effort and clear to auscultation bilaterally Cardio regular rate, regular rhythm and no murmurs GI normal to inspection, nondistended, normoactive bowel sounds and non-tender Palpation: soft Back/Spine no CVA tenderness and normal ROM Extremity normal to inspection General Extremety ED: Negative for edema General Extremity: Negative for edema Neuro oriented x3 and CN's II-XII intact bilaterally Sensorium / Orientation: alert Motor Exam: strength 5/5 throughout Psych mental status grossly normal Appearance: grossly normal Activity / Motor Behavior: restless Speech: rapid Mood & Affect: depressed; Negative for tearful Thought Process: normal thought process Thought Content: suicidality Attention / Concentration: attention grossly intact Memory / Cognition: memory grossly intact Insight: insight good Judgement: poor Skin no rashes or lesions noted and no wounds MDM MDM MDM Narrative Medical decision making narrative: Psychiatric screening labs were obtained. COVID is negative. Urine toxicology positive for amphetamines and ecstasy and cannabis. Social work/case management visited with the patient. They are in agreement the patient is best served with psychiatric stabilization as an inpatient. We will work on placement/transfer. Lab Data Attestation: I reviewed the patient's lab results. Labs: Laboratory Results - last 24 hr 11/16/22 13:33 WBC 8.7 RBC 5.90 Hgb 17.0 H Hct 48.8 MCV 82.7 MCH 28.8 MCHC 34.8 RDW Std Deviation 37.4 RDW Coeff of Jennifer 12.3 Plt Count 218 MPV 9.2 Immature Gran % (Auto) 0.300 Neut % (Auto) 64.8 Lymph % (Auto) 25.8 Crook % (Auto) 6.1 Eos % (Auto) 2.1 Baso % (Auto) 0.9 Absolute Neuts (auto) 5.7 Absolute Lymphs (auto) 2.25 Nucleated RBC % 0 Sodium 138 Potassium 3.9 Chloride 107 Carbon Dioxide 27.0 Anion Gap 4 L BUN 10 Creatinine 1.10 Estim Creat Clear Calc 111.70 Est GFR (MDRD) Af Amer 103 Est GFR (MDRD) Non-Af 86 BUN/Creatinine Ratio 9.1 L Glucose 136 H Calcium 8.8 Total Bilirubin 0.40 AST 16 ALT 28 Alkaline Phosphatase 105 Total Protein 7.5 Albumin 3.9 Globulin 3.6 Albumin/Globulin Ratio 1.1 Urine Opiates Screen NEGATIVE Urine Methadone Screen NEGATIVE Ur Barbiturates Screen NEGATIVE Ur Phencyclidine Scrn NEGATIVE Ur Amphetamines Screen POSITIVE H MDMA (Ecstasy) Screen POSITIVE H U Benzodiazepines Scrn NEGATIVE Urine Cocaine Screen NEGATIVE U Cannabinoids Screen POSITIVE H Ur Drug Screen Comment Ethyl Alcohol < 3.0 EKG Initial EKG: Attestation: I personally reviewed and interpreted this EKG as follows: Comments: Sinus tachycardia with a ventricular rate of 102 bpm. No acute injury pattern noted Discharge Plan Triage Chief Complaint: Suicidal ED Provider: Hieu Aguilar Dx/Rx/DC Orders Clinical Impression: Suicidal ideation, Schizophrenia Prescriptions: No Action trazodone 50 MG tablet 100 mg PO QHS hydroxyzine HCl 50 mg tablet 1 tab PO DAILY Patient Comments: Take 1 tablet by mouth twice a day as needed quetiapine 100 mg tablet 1 tab PO DAILY Patient Comments: Take 1 tablet by mouth every night aripiprazole 15 mg tablet 15 mg PO DAILY Patient Comments: Take 1 tablet by mouth once a day Primary Care Provider: Care Physician,No Primary Referrals: Care Physician,No Primary [Primary Care Provider] - Disposition Disposition: Psychiatric Hospital or Unit
[2022-11-16 13:45] LABS: Absolute Lymphocyte Count 2.25 X10^3/uL (0.83-4.51); Absolute Neutrophil Count 5.7 X10^3/uL (2.0-7.7); Basophil# 0.08 X10^3/uL; Basophil% 0.9 % (0-1); Eosinophil# 0.18 X10^3/uL; Eosinophils% 2.1 % (0-5); Hematocrit 48.8 % (40-54); Lymphocyte # 2.25 X10^3/ul (0.83-4.51); Lymphocyte % 25.8 % (19-41); Mean Corp Hgb Conc 34.8 g/dL (32-36); Mean Corpuscular Hgb 28.8 pg (27.0-32.0); Mean Corpuscular Volume 82.7 fL (80-94); Mean Platelet Vol. 9.2 fl (6.2-12.0); Monocyte# 0.53 X10^3/uL; Monocyte% 6.1 % (0-10); NRBC Flagged by Analyzer 0 % (0-5); Neutrophil # 5.66 X10^3/uL (2.7-7.7); Neutrophil % 64.8 % (47-70); Platelet Count 218 K/mm3 (150-450); RBC Distribution Width CV 12.3 % (11.6-14.6); RBC Distribution Width SD 37.4 fl (35.1-43.9); White Blood Count 8.7 K/mm3 (4.4-11.0)
[2022-11-16 14:09] LABS: ALB/GLOB Ratio 1.1 RATIO (0.9-2.4); AST(SGOT) 16 U/L (15-37); Alanine Aminotransfer ALT/SGPT 28 U/L (16-61); Albumin, Serum 3.9 g/dL (3.2-5.0); Alkaline Phosphatase 105 U/L (45-117); Anion Gap 4 (5-15); BUN 10 mg/dL (7-18); BUN/Creat Ratio 9.1 RATIO (10-20); Calcium,Total 8.8 mg/dL (8.5-10.1); Chloride 107 mmol/L (98-107); EST Glomerular Filtration Rate 86 mL/min (>60); Est Glom Filt Rate - Afr Amer 103 mL/min (>60); Globulin 3.6 g/dL (2.2-4.2); Glucose 136 mg/dL (74-106); Potassium 3.9 mmol/L (3.5-5.1); Protein, Total 7.5 g/dL (6.4-8.2); Sodium Level 138 mmol/L (136-145)
[2022-11-16 14:10] LABS: Alcohol, Blood (Medical)-Serum < 3.0 mg/dL
[2022-11-16 14:16] LABS: Amphetamine Urine VISTA POSITIVE (<1000 ng/mL); Barbiturate Urine VISTA NEGATIVE (< 200 ng/mL); Benzodiazepine Urine VISTA NEGATIVE (< 200 ng/mL); Cocaine Urine VISTA NEGATIVE (< 300 ng/mL); Ecstacy Urine VISTA POSITIVE (< 500 ng/mL); Methadone Urine VISTA NEGATIVE (< 300 ng/mL); PCP Urine VISTA NEGATIVE (< 25 ng/mL); THC Urine VISTA POSITIVE (< 50 ng/mL); Vista UDS pH Range 5
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
[2022-11-16 16:29] VITALS: BP 126/74; PULSE 85; RESP 16; TEMP 36.9; O2SAT 98
--- NOTE | 2022-11-16 17:52 | CM.ED ---
Social Work [facility] to inquire about beds, beds available. Patient [facility], [address] [phone]. Care team updated, community specialist to arrange transportation. SW updated patient regarding acceptance to [facility], patient voiced understanding and inquired about his ability to smoke at the facility. SW to inquire. SW contacted [facility] to inquire about smoking, intake staff report they are a non-smoking campus. ROMAIN updated patient, patient voiced understanding. Plan: Aaron CAMEJO, MADELINE
--- NOTE | 2022-11-16 19:36 | ED.RN ---
called report to Katie at [facility]
[2022-11-16 20:10] VITALS: BP 128/70; PULSE 78; RESP 16; TEMP 36.9; O2SAT 98
[2022-11-16] MEDS: QUEtiapine 100 MG Tablet 200 MG PO (21:06)
== END 2022-11-16 22:23 ==
PROVIDERS: Emergency Provider Emergency Medicine; Visit Provider Emergency Medicine
DX: F20.9 Schizophrenia, unspecified (principal); F17.210 Nicotine dependence, cigarettes, uncomplicated; R45.851 Suicidal ideations; Z59.01 Sheltered homelessness; Z79.899 Other long term (current) drug therapy
CPT/HCPCS: 80053; 80307; 82077; 85025; 87811; 93005; 99284

== ENCOUNTER 2022-12-03 10:52 | Emergency (ER) | payer MEDICAID, SELFPAY ==
[2022-12-03 10:53] VITALS: BP 159/123; PULSE 119; RESP 18; TEMP 36.1; O2SAT 98; BMI 32.5
--- NOTE | 2022-12-03 11:16 | RAD_ITS ---
EXAM: XR CHEST, 2 VIEWS CLINICAL INDICATION: chest pain TECHNIQUE: Frontal and lateral views of the chest. COMPARISON: 07/29/2017. FINDINGS: LUNGS AND PLEURAL SPACES: Unremarkable. No consolidation or edema. No pneumothorax. No effusion. HEART: Unremarkable. Cardiac silhouette not enlarged. MEDIASTINUM: Central airways and mediastinal contour are unremarkable. BONES/JOINTS: Unremarkable. SOFT TISSUES: Unremarkable. RAD/Chest PA and Lateral IMPRESSION: No radiographic evidence of acute cardiopulmonary disease and unchanged when compared to 07/29/2017. Electronically Signed: Beau Zacarias MD at 12:04 EDT ,
--- NOTE | 2022-12-03 11:21 | ED.VIS.CHEST ---
HPI <ZAK Garrett - Last Filed: 12/03/22 12:26> History of Present Illness Chief Complaint: Chest Other Narrative Narrative: Patient presenting today with inferior right sided chest pain that he has had for the past 2 days. He reports that the pain is brought on by stretching, deep breaths, and coughing. He reports that this morning when he was getting out of bed he began stretching and coughed and exacerbated the pain. He denies any injury to the area, fever, chills, shortness of breath, abdominal pain, nausea, vomiting. PE Risk Factors: Negative for Recent Travel/Surgery, Recent Immobilization or Prior DVT or PE PFSH <ZAK Garrett - Last Filed: 12/03/22 12:26> [facility] Medical History Schizo affective schizophrenia Home Medications quetiapine 400 mg tablet,extended release 24 hr 400 mg PO QHS 11/16/22 [History Last Taken Unknown] Allergy/AdvReac Type Severity Reaction Status Date / Time Penicillins Allergy Hives Verified 12/03/22 10:54 Sulfa (Sulfonamide Allergy Hives Verified 12/03/22 10:54 Antibiotics) Social History Smoking Status: Current every day smoker tobacco type: cigarettes ROS <ZAK Garrett - Last Filed: 12/03/22 12:26> ROS ED Constitutional Constitutional ED: Denies chills or fever(s) Cardiovascular Cardiovascular: Reports chest pain; Denies palpitations Respiratory/Chest Respiratory/Chest: Denies cough, dyspnea or dyspnea on exertion Gastrointestinal Gastrointestinal: Denies abdominal pain, nausea or vomiting Musculoskeletal Musculoskeletal: Denies arthralgias or myalgias Integumentary Denies Abrasions or rash Neurologic Neurologic: Denies weakness EXAM <ZAK Garrett - Last Filed: 12/03/22 12:26> Physical Exam Const Vital Signs: 12/03/22 10:53 12/03/22 11:20 Temperature 97.0 F L Temperature Source Temporal Pulse Rate 119 H Respiratory Rate 18 Respiratory Effort Normal Non-Labored Blood Pressure 159/123 H Blood Pressure Mean 135 Pulse Ox 98 Oxygen Delivery Method Room Air Positive well nourished, well developed and no apparent distress General Appearance ED: well developed HEENT Reports normocephalic and head/scalp atraumatic Mouth ED: Yes moist mucous membranes normal Eyes PERRL and EOMs intact bilaterally Neck full ROM and supple Chest Wall inspection of chest normal Chest Narrative: Pain to palpation to the right inferior chest wall without any ecchymosis, crepitus, or lesions. Resp normal respiratory effort and clear to auscultation bilaterally Cardio regular rate and regular rhythm GI soft to palpation, non-tender, non-distended and no masses Back/Spine normal ROM and normal to inspection Extremity normal to inspection and full ROM Neuro oriented x3, CN's II-XII intact bilaterally, moves all extremities, no focal motor deficits and no sensory deficits noted Sensorium / Orientation: awake and alert Psych mental status grossly normal and thought process normal Skin no rashes or lesions noted and no wounds <Dr. Rajendra Romero MD - Last Filed: 12/03/22 13:57> Physical Exam Const Vital Signs: 12/03/22 10:53 12/03/22 11:20 Temperature 97.0 F L Temperature Source Temporal Pulse Rate 119 H Respiratory Rate 18 Respiratory Effort Normal Non-Labored Blood Pressure 159/123 H Blood Pressure Mean 135 Pulse Ox 98 Oxygen Delivery Method Room Air MDM <ZAK Garrett - Last Filed: 12/03/22 12:26> [facility] MDM Narrative Medical decision making narrative: Patient presenting today due to right-sided chest pain between the fifth and sixth rib cage that he has had for the past 2 days. Pain is exacerbated by stretching, deep breathing, and coughing. Patient is PERC negative. Pain is reproducible with palpation. Examination is consistent with costochondritis. Chest x-ray obtained to rule out infiltrate, pneumothorax, and other cardiopulmonary abnormality and is negative for any acute findings. Instructed patient to begin taking NSAIDs for pain as needed. He is to follow-up with his PCP and will be discharged home in stable condition. He is comfortable with plan. I have personally performed a face to face assessment of the patient and have reviewed the MIRTHA Note. I performed a substantive portion of the visit including all aspects of the following. My shane findings include: History is remarkable for right-sided chest pain after coughing. Cough is nonproductive. He is a smoker. He denies history of pneumonia. He has no other complaints Exam is patient appears no distress. Vital signs remarkable for heart rate of 119. HEENT exam is normal. Lungs are clear to auscultation with symmetric breath sounds. Heart is regular. There is no murmur, gallop or rub. Abdomen is soft nontender. Negative clinical Julio sign. There is no hepatosplenomegaly. There is no dermatologic lesions noted. He has reproducible pain over the right fifth sixth intercostal space. Medical Decision Making x-ray was obtained to evaluate for possible pneumonia since he is tachycardic. His history is not consistent with PE and he has no risk factors for PE or DVT. Furthermore he has no complaint of leg pain, swelling discoloration. Examination of the lower extremities is normal (there is no asymmetry, swelling, discoloration, leg vein distention, palpable cords or tenderness along the distribution of the deep venous system. Other additions or changes: [None] Radiography Diagnostic Testing: Clinical Impression(s) from Imaging Studies Chest X-Ray 12/03/22 11:16 IMPRESSION: No radiographic evidence of acute cardiopulmonary disease and unchanged when compared to 07/29/2017. Electronically Signed: Beau Zacarias MD at 12:04 EDT , <Dr. Rajendra Romero MD - Last Filed: 12/03/22 13:57> [facility] Narrative Medical decision making narrative: Patient presenting today due to right-sided chest pain between the fifth and sixth rib cage that he has had for the past 2 days. Pain is exacerbated by stretching, deep breathing, and coughing. Patient is PERC negative. Pain is reproducible with palpation. Examination is consistent with costochondritis. Chest x-ray obtained to rule out infiltrate, pneumothorax, and other cardiopulmonary abnormality and is negative for any acute findings. Instructed patient to begin taking NSAIDs for pain as needed. He is to follow-up with his PCP and will be discharged home in stable condition. He is comfortable with plan. I have personally performed a face to face assessment of the patient and have reviewed the MIRTHA Note. I performed a substantive portion of the visit including all aspects of the following. My shane findings include: History is remarkable for right-sided chest pain after coughing. Cough is nonproductive. He is a smoker. He denies history of pneumonia. He has no other complaints Exam is patient appears no distress. Vital signs remarkable for heart rate of 119. HEENT exam is normal. Lungs are clear to auscultation with symmetric breath sounds. Heart is regular. There is no murmur, gallop or rub. Abdomen is soft nontender. Negative clinical Julio sign. There is no hepatosplenomegaly. There is no dermatologic lesions noted. He has reproducible pain over the right fifth sixth intercostal space. Medical Decision Making x-ray was obtained to evaluate for possible pneumonia since he is tachycardic. His history is not consistent with PE and he has no risk factors for PE or DVT. Furthermore he has no complaint of leg pain, swelling discoloration. Examination of the lower extremities is normal (there is no asymmetry, swelling, discoloration, leg vein distention, palpable cords or tenderness along the distribution of the deep venous system. Other additions or changes: No additions or corrections Radiography Chest X-Ray - ED: 2 View and Read by ED Physician (Independent reviewed interpreted by me at 1130. Cardiac silhouette size normal. Lung parenchyma is normal. Perihilar region is normal. Also structures are normal.) Diagnostic Testing: Clinical Impression(s) from Imaging Studies Chest X-Ray 12/03/22 11:16 IMPRESSION: No radiographic evidence of acute cardiopulmonary disease and unchanged when compared to 07/29/2017. Electronically Signed: Beau Zacarias MD at 12:04 EDT Reading Location ID and State: [address] [place] [address] , Service support , Discharge Plan Triage Chief Complaint: Chest Other ED Midlevel Provider: Rafaela Cervantes ED Provider: Rajendra Romero Dx/Rx/DC Orders Clinical Impression: Acute costochondritis Instructions: Costochondritis Prescriptions: No Action quetiapine 400 mg tablet extended release 24 hr 400 mg PO QHS Primary Care Provider: Care Physician,No Primary Referrals: Care Physician,Tati Primary [Primary Care Provider] - Activity Restrictions/Additional Instructions: You can begin taking ibuprofen for your pain as needed. Return for any worsening of your symptoms. Follow-up with your PCP in 5 to 7 days. Disposition Disposition: Home, Self Care Discharge Date/Time: 12/03/22 11:54
== END 2022-12-03 11:54 | disposition home or self-care (01) ==
PROVIDERS: Emergency Provider Emergency Medicine; Visit Provider Emergency Medicine
DX: M94.0 Chondrocostal junction syndrome [Tietze] (principal); F25.9 Schizoaffective disorder, unspecified; F17.210 Nicotine dependence, cigarettes, uncomplicated; Z79.899 Other long term (current) drug therapy; X58.XXXA Exposure to other specified factors, initial encounter; Y93.89 Activity, other specified
CPT/HCPCS: 71046; 99282

== ENCOUNTER 2023-06-26 11:58 | Inpatient (IN) | payer MEDICAID, SELFPAY ==
[2023-06-26] VITALS (12 sets, daily range): BP systolic 118–143; BP diastolic 7–94; PULSE 56–81; RESP 14–16; TEMP 36.2–36.7; O2SAT 94–100; BMI 37.0; BMI 36.5
--- NOTE | 2023-06-26 12:48 | RAD_ITS ---
STUDY: X-RAY - ABDOMEN/PELVIS REASON FOR EXAM: Male, 28 years old. constipation TECHNIQUE: Single AP view of the abdomen / pelvis. COMPARISON: None. FINDINGS: Normal visualized lung bases. There is a moderate amount of colonic fecal material. The visualized liver, spleen and kidneys are grossly normal in size and morphology. Normal soft tissue structures. Normal visualized osseous structures. RAD/Abdomen Single View IMPRESSION: Moderate amount of fecal material is seen in the colon. Electronically Signed: Elijah Carvajal MD at 13:16 EDT ,
--- NOTE | 2023-06-26 12:49 | EX.ED.DYSGE1 ---
HPI History of Present Illness Chief Complaint: Abd Pain Informant: patient Narrative Narrative: 28-year-old male presenting to the emergency room with a chief complaint of abdominal discomfort. Patient states that about a week ago he was seen in the emergency room for constipation. He was advised to take a laxative. He states since that time he has had liquid stool but still feels a lot of rectal pressure. He notes some abdominal bloating. No vomiting. He notes decreased appetite. He states now he is having increased cramping and gets very sweaty and near syncopal when this happens. He notes a prior appendectomy but does not have any history of bowel obstruction. [facility] Medical History Schizo affective schizophrenia Home Medications quetiapine 400 mg tablet,extended release 24 hr 400 mg PO QHS 11/16/22 [History Last Taken 06/25/23] omeprazole 10 mg capsule,delayed release 10 mg PO DAILY 06/26/23 [History Last Taken 06/26/23] Allergy/AdvReac Type Severity Reaction Status Date / Time Penicillins Allergy Hives Verified 06/26/23 12:00 Sulfa (Sulfonamide Allergy Hives Verified 06/26/23 12:00 Antibiotics) Social History Smoking Status: Current every day smoker tobacco type: cigarettes ROS ROS ED Constitutional Constitutional ED: Denies chills or weight loss Eyes Eyes: Denies change in vision or diplopia ENT ENT ED: Denies ear pain, rhinorrhea or sore throat Cardiovascular Cardiovascular: Reports other Details: Near syncope ; Denies chest pain, orthopnea, palpitations or racing heartbeat Respiratory/Chest Respiratory/Chest: Denies cough, dyspnea or orthopnea Gastrointestinal Gastrointestinal: Reports abdominal pain, constipation and other Details: Possible uncal paresis ; Denies diarrhea, nausea or vomiting Genitourinary Genitourinary ED: Denies dysuria, hematuria or urinary frequency Musculoskeletal Musculoskeletal: Denies arthralgias or myalgias Integumentary Reports other Details: Diaphoresis ; Denies abscess or rash Neurologic Neurologic: Denies headache(s) or weakness Psychiatric Psychiatric: Denies anxiety, depression, suicidal ideation or suicidal thoughts Endocrine Endocrinology: Denies polydipsia, polyphagia or polyuria Allergic/Immunologic Allergic/Immunologic ED: Denies mouth swelling, tongue swelling or urticaria EXAM Physical Exam Const Vital Signs: 06/26/23 11:59 06/26/23 12:00 06/26/23 14:35 Temperature 97.2 F L Temperature Source Temporal Pulse Rate 81 81 63 Respiratory Rate 14 16 16 Blood Pressure 129/94 H 129/94 H 143/60 H Blood Pressure Mean 105 105 87 Pulse Ox 100 100 98 Oxygen Delivery Method Room Air Room Air 06/26/23 13:36 06/26/23 13:38 06/26/23 13:45 Temperature Temperature Source Pulse Rate Respiratory Rate Blood Pressure 118/65 122/69 H Blood Pressure Mean 80 84 Pulse Ox 97 96 Oxygen Delivery Method 06/26/23 14:00 06/26/23 14:05 06/26/23 16:00 Temperature Temperature Source Pulse Rate 80 60 Respiratory Rate 16 14 Blood Pressure 128/60 H 128/60 H 123/71 H Blood Pressure Mean 76 82 88 Pulse Ox 99 94 Oxygen Delivery Method Positive well nourished and well developed General Appearance ED: well developed HEENT Reports normocephalic, head/scalp atraumatic and moist mucous membranes Eyes PERRL and EOMs intact bilaterally Neck no lymphadenopathy, supple and no JVD Resp normal respiratory effort and clear to auscultation bilaterally Cardio regular rate, regular rhythm and no murmurs GI Inspection: Negative for abdominal distention Auscultation: hyperactive bowel sounds Palpation: soft, tender other (Diffuse tenderness to palpation), guarding and rebound tenderness present Back/Spine no CVA tenderness and normal ROM Extremity normal to inspection General Extremety ED: Negative for edema General Extremity: Negative for edema Neuro oriented x3 and CN's II-XII intact bilaterally Sensorium / Orientation: alert Motor Exam: strength 5/5 throughout Psych mental status grossly normal Mood & Affect: Negative for depressed or tearful Skin no rashes or lesions noted and no wounds Skin Narrative: Patient is diaphoretic MDM MDM MDM Narrative Medical decision making narrative: Basic plain film was obtained to rule out fecal impaction with oncoparesis. This did not demonstrate that process. Patient again began to cramp and become diaphoretic. Therefore basic blood work was obtained shows a white count of 9.6 normal differential. BMP showed a CO2 of 24 gap of 5. Creatinine 0.9 liver enzymes within normal limits lipase of 28. CT of the abdomen pelvis was obtained. This demonstrated some inflammatory changes of the descending and sigmoid colon. There is noted to be fluid in the paracolic gutters and in the epigastric region. No obvious free air. Patient received pain and nausea medications as well as Cipro and Flagyl. I discussed the case with Dr. Gerber from gastroenterology. Our plan will be admission. History & Record Review Discussion w/independent historian: Patient and Family Additional record(s) reviewed:: Prior ED visit and Prior labs Lab Data Attestation: I reviewed the patient's lab results. Labs: Laboratory Results - last 24 hr 06/26/23 13:16 WBC 9.6 RBC 5.98 Hgb 16.6 H Hct 48.6 MCV 81.3 MCH 27.8 MCHC 34.2 RDW Std Deviation 38.0 RDW Coeff of Jennifer 13.0 Plt Count 317 MPV 9.1 Immature Gran % (Auto) 0.300 Neut % (Auto) 64.5 Lymph % (Auto) 22.7 [place] % (Auto) 8.1 Eos % (Auto) 3.8 Baso % (Auto) 0.6 Absolute Neuts (auto) 6.2 Absolute Lymphs (auto) 2.17 Nucleated RBC % 0 Sodium 137 Potassium 3.5 Chloride 108 H Carbon Dioxide 24.0 Anion Gap 5 BUN 11 Creatinine 0.90 Estim Creat Clear Calc 167.59 Est GFR (MDRD) Af Amer 130 Est GFR (MDRD) Non-Af 108 BUN/Creatinine Ratio 12.2 Glucose 101 Calcium 8.2 L Total Bilirubin 0.70 AST 13 L ALT 23 Alkaline Phosphatase 77 Total Protein 6.8 Albumin 3.5 Globulin 3.3 Albumin/Globulin Ratio 1.1 Lipase 28 Radiography Diagnostic Testing: Clinical Impression(s) from Imaging Studies KUB X-Ray 06/26/23 12:48 IMPRESSION: Moderate amount of fecal material is seen in the colon. Electronically Signed: Elijah Carvajal MD at 13:16 EDT , Abdomen/Pelvis CT 06/26/23 12:58 IMPRESSION: Findings in keeping with diffuse enteritis worse in the ileum and distal ileum as well as colitis of the right hemicolon. Ascitic fluid. Diffuse fatty infiltration of the liver. The patient is status post appendectomy. Electronically Signed: Elijah Carvajal MD at 14:16 EDT , Management Discussion w/another healthcare provider: Hospitalist (Dr. Baltazar) and Tractor Operator Helper (Dr. Gerber (Gastroenterology)) Discharge Plan Dx/Rx/DC Orders Clinical Impression: Abdominal pain, acute, Colitis, Vasovagal near-syncope Disposition Disposition: Acute Care Hospital [facility]
--- NOTE | 2023-06-26 12:58 | CT_ITS ---
STUDY: CT ABDOMEN AND PELVIS WITH CONTRAST REASON FOR EXAM: Male, 28 years old. Abdominal pain RADIATION DOSAGE (If Supplied By Facility): CTDIvol = ( 18.08 ) mGy, DLP = ( 1289.85 ) mGycm TECHNIQUE: Transaxial images were obtained from the dome of the diaphragm to the symphysis pubis without oral contrast. IV 100mL Isovue-300 was administered. Sagittal and coronal images were reconstructed. Individualized dose optimization techniques were used for this CT. COMPARISON: None. FINDINGS: The visualized lung bases are unremarkable. The visualized portions of the heart are within normal limits. Perihepatic and perisplenic fluid. Small amount of fluid is seen in the paracolic gutters bilaterally. There is decreased attenuation of the liver consistent with steatosis. Normal gallbladder and extrahepatic biliary system. Normal spleen. Normal pancreas. Normal bilateral adrenal glands. Normal right kidney. Normal left kidney. Normal visualized stomach. Diffuse edematous thickening of multiple small bowel loops in keeping with the enteritis. This is worse in the ileum and distal ileum. Edematous changes seen in the right hemicolon suggestive of a colitis. There are surgical clips in the region of the appendix consistent with a prior appendectomy. Normal abdominal aorta. Normal inferior vena cava. Normal retroperitoneum. Increased markings in the mesentery. Small mesenteric lymph nodes are seen. Normal urinary bladder. Small amount of fluid is seen in the pelvis. Normal abdominal wall. Normal osseous structures. CT/Abdomen/Pelvis W IV Cont ONLY IMPRESSION: Findings in keeping with diffuse enteritis worse in the ileum and distal ileum as well as colitis of the right hemicolon. Ascitic fluid. Diffuse fatty infiltration of the liver. The patient is status post appendectomy. Electronically Signed: Elijah Carvajal MD at 14:16 EDT ,
[2023-06-26] MEDS: 0.9% Normal Saline (1000mL) 1,000 ML 1000 ML IV (13:20)
[2023-06-26 13:34] LABS: Absolute Lymphocyte Count 2.17 X10^3/uL (0.83-4.51); Absolute Neutrophil Count 6.2 X10^3/uL (2.0-7.7); Basophil# 0.06 X10^3/uL; Basophil% 0.6 % (0-1); Eosinophil# 0.36 X10^3/uL; Eosinophils% 3.8 % (0-5); Hematocrit 48.6 % (40-54); Hemoglobin 16.6 g/dL (13.0-16.5); Lymphocyte # 2.17 X10^3/ul (0.83-4.51); Lymphocyte % 22.7 % (19-41); Mean Corp Hgb Conc 34.2 g/dL (32-36); Mean Corpuscular Hgb 27.8 pg (27.0-32.0); Mean Corpuscular Volume 81.3 fL (80-94); Mean Platelet Vol. 9.1 fl (6.2-12.0); Monocyte# 0.77 X10^3/uL; Monocyte% 8.1 % (0-10); NRBC Flagged by Analyzer 0 % (0-5); Neutrophil # 6.16 X10^3/uL (2.7-7.7); Neutrophil % 64.5 % (47-70); Platelet Count 317 K/mm3 (150-450); Red Blood Count 5.98 M/mm3 (4.6-6.2); White Blood Count 9.6 K/mm3 (4.4-11.0)
[2023-06-26 13:57] LABS: ALB/GLOB Ratio 1.1 RATIO (0.9-2.4); AST(SGOT) 13 U/L (15-37); Alanine Aminotransfer ALT/SGPT 23 U/L (16-61); Albumin, Serum 3.5 g/dL (3.2-5.0); Alkaline Phosphatase 77 U/L (45-117); Anion Gap 5 (5-15); BUN 11 mg/dL (7-18); BUN/Creat Ratio 12.2 RATIO (10-20); Calcium,Total 8.2 mg/dL (8.5-10.1); Chloride 108 mmol/L (98-107); EST Glomerular Filtration Rate 108 mL/min (>60); Est Glom Filt Rate - Afr Amer 130 mL/min (>60); Estimated Creatinine Clearance 167.59 ml/min; Globulin 3.3 g/dL (2.2-4.2); Glucose 101 mg/dL (74-106); Lipase 28 U/L (13-75); Potassium 3.5 mmol/L (3.5-5.1); Protein, Total 6.8 g/dL (6.4-8.2); Sodium Level 137 mmol/L (136-145)
[2023-06-26] MEDS: Morphine 4 MG/ML Syringe IV (14:32)
[2023-06-26] MEDS: Ondansetron 4 MG/2 ML Vial IV (14:32)
[2023-06-26] MEDS: 0.9% Normal Saline (1000mL) 1,000 ML 200 ML IV (14:34)
[2023-06-26] MEDS: metroNIDAZOLE 500 MG/100 ML BAG 100 MG IV ×2 (15:35→21:25)
[2023-06-26] MEDS: Ciprofloxacin 400 MG/200 ML BAG 200 MG IV ×2 (16:29→22:26)
[2023-06-26 16:36] LABS: Bacteria 0 SEEN /hpf (None Seen); Mucous, Urine 0 SEEN /hpf (<or=2+); Red Blood Cells-Urine 0 SEEN /hpf (0-5); White Blood Cells 0 SEEN /hpf (0-5)
[2023-06-26 17:07] LABS: Color, Urine Yellow (Yellow); Glucose, Dipstick Normal (Normal); Ketone-Dipstick 5 mg/dl (Negative); Leukocyte Esterase-Dipstick 25 /ul (Negative); Nitrite-Dipstick Negative (Negative); Occult Blood-Urine Negative /ul (Negative); Protein-Dipstick 15 mg/dl (Negative); Urine Bilirubin Dipstick Negative (Negative); Urine Clarity Clear (Clear); Urine Urobilinogen Normal (Normal)
--- NOTE | 2023-06-26 17:21 | NURSING ---
MED SURG JOPPERI COLITIS
[2023-06-26 17:25] LABS: Squamous Epithelial Cells - UA 0-5 SEEN /hpf (0-5)
--- NOTE | 2023-06-26 18:02 | HP.PCM.HOS_ITS ---
HPI - General General Date of Admission: 06/26/23 Date of Service: 06/26/23 Chief Complaint: Abdominal pain HPI Narrative BENY MARTIN, is a 28 M who presents with abdominal pain. Symptoms began about a week ago. Associated with diarrhea. But no vomiting.. Patient is also having diaphoresis almost passes out at times. He presented to the emergency room with this and had a CAT scan that showed diffuse enteritis worsening ileum and distal ileum. Gastroenterology was contacted and recommended discontinuing attics and holding off steroids for now. Patient denies ever having had this before. [facility] Medical History Schizo affective schizophrenia Home Medications quetiapine 400 mg tablet,extended release 24 hr 400 mg PO QHS 11/16/22 [History Last Taken 06/25/23] omeprazole 10 mg capsule,delayed release 10 mg PO DAILY 06/26/23 [History Last Taken 06/26/23] Allergy/AdvReac Type Severity Reaction Status Date / Time Penicillins Allergy Hives Verified 06/26/23 12:00 Sulfa (Sulfonamide Allergy Hives Verified 06/26/23 12:00 Antibiotics) Family History (Updated 06/26/23 @ 18:[address] Fredi Baltazar DO) Brother Crohn's disease Social History Smoking Status: Current every day smoker tobacco type: cigarettes Vital Signs Vital Signs Vital Signs: 06/26/23 11:59 06/26/23 12:00 06/26/23 14:35 Temperature 36.2 C L Temperature Source Temporal Pulse Rate 81 81 63 Respiratory Rate 14 16 16 Blood Pressure 129/94 H 129/94 H 143/60 H Blood Pressure Mean 105 105 87 Pulse Ox 100 100 98 Oxygen Delivery Method Room Air Room Air 06/26/23 13:36 06/26/23 13:38 06/26/23 13:45 Temperature Temperature Source Pulse Rate Respiratory Rate Blood Pressure 118/65 122/69 H Blood Pressure Mean 80 84 Pulse Ox 97 96 Oxygen Delivery Method 06/26/23 14:00 06/26/23 14:05 06/26/23 16:00 Temperature Temperature Source Pulse Rate 80 60 Respiratory Rate 16 14 Blood Pressure 128/60 H 128/60 H 123/71 H Blood Pressure Mean 76 82 88 Pulse Ox 99 94 Oxygen Delivery Method Weight Weight: 123.859 kg Body Mass Index (BMI) 37.0 Physical Exam Const alert and no apparent distress General Appearance: cooperative HEENT normocephalic Resp normal respiratory effort, no retractions, no use of accessory muscles and clear to auscultation bilaterally Cardio regular rate, regular rhythm, S1 normal heart sound and S2 normal heart sound GI non-distended GI Narrative: Mildly diffusely tender. Extremity normal to inspection and no clubbing, cyanosis or edema Neuro moves all extremities Sensorium / Orientation: awake and alert Psych affect normal Results Lab / Micro Data Attestation: I reviewed the patient's lab results. 06/26/23 13:16 06/26/23 13:16 Labs: Laboratory Results - last 24 hr 06/26/23 13:16: WBC 9.6, RBC 5.98, Hgb 16.6 H, Hct 48.6, MCV 81.3, MCH 27.8, MCHC 34.2, RDW Std Deviation 38.0, RDW Coeff of Jennifer 13.0, Plt Count 317, MPV 9.1, Immature Gran % (Auto) 0.300, Neut % (Auto) 64.5, Lymph % (Auto) 22.7, [place] % (Auto) 8.1, Eos % (Auto) 3.8, Baso % (Auto) 0.6, Absolute Neuts (auto) 6.2, Absolute Lymphs (auto) 2.17, Nucleated RBC % 0, Sodium 137, Potassium 3.5, Chloride 108 H, Carbon Dioxide 24.0, Anion Gap 5, BUN 11, Creatinine 0.90, Estim Creat Clear Calc 167.59, Est GFR (MDRD) Af Amer 130, Est GFR (MDRD) Non-Af 108, BUN/Creatinine Ratio 12.2, Glucose 101, Calcium 8.2 L, Total Bilirubin 0.70, AST 13 L, ALT 23, Alkaline Phosphatase 77, Total Protein 6.8, Albumin 3.5, Globulin 3.3, Albumin/Globulin Ratio 1.1, Lipase 28 06/26/23 16:30: Urine Color Yellow, Urine Clarity Clear, Urine pH 5.0, Ur Specific [place] 1.010, Urine Protein 15 H, Urine Glucose (UA) Normal, Urine Ketones 5 H, Urine Occult Blood Negative, Urine Nitrite Negative, Urine Bilirubin Negative, Urine Urobilinogen Normal, Ur Leukocyte Esterase 25 H, Urine RBC 0 SEEN, Urine WBC 0 SEEN, Ur Squamous Epith Cells 0-5 SEEN, Urine Bacteria 0 SEEN, Urine Mucus 0 SEEN Imaging Radiology Impression KUB X-Ray 06/26/23 12:48 IMPRESSION: Moderate amount of fecal material is seen in the colon. Electronically Signed: Elijah Carvajal MD at 13:16 EDT , Abdomen/Pelvis CT 06/26/23 12:58 IMPRESSION: Findings in keeping with diffuse enteritis worse in the ileum and distal ileum as well as colitis of the right hemicolon. Ascitic fluid. Diffuse fatty infiltration of the liver. The patient is status post appendectomy. Electronically Signed: Elijah Carvajal MD at 14:16 EDT , Assessment & Plan Assessment/Plan (1) Colitis: (2) Enteritis: (3) Vasovagal near-syncope: PLAN: Plan Enteritis/colitis * Etiology is infectious versus inflammatory. Given his age and gender, seems less likely ischemic * Continue with antibiotics with ciprofloxacin and metronidazole * Stool studies with enteric panel as well as C. difficile. * Patient does report that his brother has a history of Crohn's disease Near syncope * Likely secondary to above * IV fluids * No additional workup at this time unless becomes more recurrent. Schizoaffective disorder quetiapine DVT prophylaxis with low migraine heparin. Charges/Coding Visit Charges Inpatient E&M: 39728 Init Hosp L3
--- NOTE | 2023-06-26 18:58 | EX.PCM.CON.G ---
HPI Consult Data Date of Consult: 06/26/23 HPI Narrative Reason for Consultation: Abdominal pain HPI Narrative: BENY MARTIN, is a 28-year-old male presenting to the emergency room with a chief complaint of abdominal discomfort. Patient states that about a week ago he was seen in the emergency room for constipation. He was advised to take a laxative. He states since that time he has had liquid stool but still feels a lot of rectal pressure. He notes some abdominal bloating. No vomiting. He notes decreased appetite. He states now he is having increased cramping and gets very sweaty and near syncopal when this happens. He notes a prior appendectomy but does not have any history of bowel obstruction. CT scan abdomen pelvis: Findings in keeping with diffuse enteritis worse in the ileum and distal ileum as well as colitis of the right hemicolon. Ascitic fluid. Diffuse fatty infiltration of the liver. The patient is status post appendectomy. FORMERLY [facility], 1928–1983 Medical History Schizo affective schizophrenia Home Medications quetiapine 400 mg tablet,extended release 24 hr 400 mg PO QHS 11/16/22 [History Last Taken 06/25/23] omeprazole 10 mg capsule,delayed release 10 mg PO DAILY 06/26/23 [History Last Taken 06/26/23] Allergy/AdvReac Type Severity Reaction Status Date / Time Penicillins Allergy Hives Verified 06/26/23 12:00 Sulfa (Sulfonamide Allergy Hives Verified 06/26/23 12:00 Antibiotics) Family History (Updated 06/26/23 @ 18:[address] Fredi Baltazar DO) Brother Crohn's disease Social History Smoking Status: Current every day smoker tobacco type: cigarettes ROS Review of Systems ROS Unobtainable: other Constitutional Constitutional: Denies fatigue, fever(s), poor appetite, weight gain or weight loss ENT HEENT: Denies mouth lesions Cardiovascular Cardiovascular: Denies abdominal bloating, abdominal edema or abdominal pain Respiratory/Chest Respiratory/Chest: Denies change in mental status, change in phlegm color, chest congestion or chest tightness Gastrointestinal Gastrointestinal: Denies belching, bloating, change in bowel habits, change in stool character, chewing difficulty, coffee ground emesis, constipation, cramping, diarrhea, dyspepsia, dysphagia, early satiety, excessive flatus, fecal incontinence, heartburn, hematemesis, hematochezia, hemorrhoids, loose stools, melena, nausea, odynophagia, rectal bleeding, tenesmus, vomiting or weight changes Genitourinary Genitourinary: Denies abdominal discomfort, burning urination or itching Musculoskeletal Musculoskeletal: Reports as per HPI; Denies muscle weakness or myalgias Integumentary Integumentary: Denies jaundice Neurologic Neurologic: Denies lack of coordination or weakness Psychiatric Psychiatric: Denies confusion, depression, memory loss, mood swings, paranoia or suicidal ideation Endocrine Endocrinology: Denies systems reviewed and no addt'l complaints, except as documented Hematologic/Lymphatic Hematologic/Lymphatic: Denies anemia, easy bleeding, easy bruising or lymphadenopathy Allergic/Immunologic Allergic/Immunologic: Denies systems reviewed and no addt'l complaints, except as documented Physical Exam Const alert and no apparent distress General Appearance: cooperative HEENT normocephalic Resp normal respiratory effort, no retractions, no use of accessory muscles and clear to auscultation bilaterally Cardio regular rate, regular rhythm, S1 normal heart sound and S2 normal heart sound GI non-distended GI Narrative: Mildly diffusely tender. Extremity normal to inspection and no clubbing, cyanosis or edema Neuro moves all extremities Sensorium / Orientation: awake and alert Psych affect normal Lab / Micro Data 06/26/23 13:16 06/26/23 13:16 Labs: Laboratory Results - last 24 hr 06/26/23 13:16: WBC 9.6, RBC 5.98, Hgb 16.6 H, Hct 48.6, MCV 81.3, MCH 27.8, MCHC 34.2, RDW Std Deviation 38.0, RDW Coeff of Jennifer 13.0, Plt Count 317, MPV 9.1, Immature Gran % (Auto) 0.300, Neut % (Auto) 64.5, Lymph % (Auto) 22.7, [place] % (Auto) 8.1, Eos % (Auto) 3.8, Baso % (Auto) 0.6, Absolute Neuts (auto) 6.2, Absolute Lymphs (auto) 2.17, Nucleated RBC % 0, Sodium 137, Potassium 3.5, Chloride 108 H, Carbon Dioxide 24.0, Anion Gap 5, BUN 11, Creatinine 0.90, Estim Creat Clear Calc 167.59, Est GFR (MDRD) Af Amer 130, Est GFR (MDRD) Non-Af 108, BUN/Creatinine Ratio 12.2, Glucose 101, Calcium 8.2 L, Total Bilirubin 0.70, AST 13 L, ALT 23, Alkaline Phosphatase 77, Total Protein 6.8, Albumin 3.5, Globulin 3.3, Albumin/Globulin Ratio 1.1, Lipase 28 06/26/23 16:30: Urine Color Yellow, Urine Clarity Clear, Urine pH 5.0, Ur Specific [place] 1.010, Urine Protein 15 H, Urine Glucose (UA) Normal, Urine Ketones 5 H, Urine Occult Blood Negative, Urine Nitrite Negative, Urine Bilirubin Negative, Urine Urobilinogen Normal, Ur Leukocyte Esterase 25 H, Urine RBC 0 SEEN, Urine WBC 0 SEEN, Ur Squamous Epith Cells 0-5 SEEN, Urine Bacteria 0 SEEN, Urine Mucus 0 SEEN Imaging Radiology Impression KUB X-Ray 06/26/23 12:48 IMPRESSION: Moderate amount of fecal material is seen in the colon. Electronically Signed: Elijah Carvajal MD at 13:16 EDT , Abdomen/Pelvis CT 06/26/23 12:58 IMPRESSION: Findings in keeping with diffuse enteritis worse in the ileum and distal ileum as well as colitis of the right hemicolon. Ascitic fluid. Diffuse fatty infiltration of the liver. The patient is status post appendectomy. Electronically Signed: Elijah Carvajal MD at 14:16 EDT , Assessment & Plan Assessment/Plan (1) Colitis: (2) Enteritis: (3) Vasovagal near-syncope: PLAN: Plan 28-year-old gentleman comes in acute abdominal pain with a history of chronic intermittent diarrhea. Imaging shows. Etiology is infectious versus inflammatory., Differential diagnosis does include infectious colitis, Inflammatory bowel disease Continue with antibiotics with ciprofloxacin and metronidazole Stool studies with enteric panel as well as C. difficile. Patient does report that his brother has a history of Crohn's disease He should undergo EGD and colonoscopy to evaluate his upper and lower GI tract home. I will also send blood work for inflammatory bowel disease. Charges/Coding Visit Charges Inpatient E&M: 16805 Init Hosp L3
[2023-06-26] MEDS: 0.9% Normal Saline (1000mL) 1,000 ML 150 ML IV (19:18)
[2023-06-26] MEDS: Bisacodyl 5 MG Tablet 20 MG PO (19:20)
[2023-06-26] MEDS: oxyCODONE 5 MG Tablet PO (19:23)
[2023-06-26] MEDS: Acetaminophen 325 MG Tablet 650 MG PO (19:23)
[2023-06-26] MEDS: Polyethylene Glycol 3350 BOWEL PREP PO (21:25)
[2023-06-26] MEDS: QUEtiapine 100 MG Tablet 400 MG PO (21:26)
[2023-06-27] VITALS (11 sets, daily range): BP systolic 93–126; BP diastolic 54–79; PULSE 52–84; RESP 12–18; TEMP 36.2–36.6; O2SAT 92–98
[2023-06-27] MEDS: 0.9% Normal Saline (1000mL) 1,000 ML 150 ML IV (03:37)
[2023-06-27] MEDS: metroNIDAZOLE 500 MG/100 ML BAG 100 MG IV ×3 (05:15→21:14)
[2023-06-27 07:03] LABS: Absolute Neutrophil Count 2.7 X10^3/uL (2.0-7.7); Basophil# 0.05 X10^3/uL; Basophil% 0.8 % (0-1); Eosinophil# 0.36 X10^3/uL; Eosinophils% 5.8 % (0-5); Hematocrit 41.3 % (40-54); Hemoglobin 13.7 g/dL (13.0-16.5); Lymphocyte % 41.7 % (19-41); Mean Corp Hgb Conc 33.2 g/dL (32-36); Mean Corpuscular Hgb 27.6 pg (27.0-32.0); Mean Corpuscular Volume 83.1 fL (80-94); Mean Platelet Vol. 9.4 fl (6.2-12.0); NRBC Flagged by Analyzer 0 % (0-5); Neutrophil % 43.2 % (47-70); Platelet Count 226 K/mm3 (150-450); RBC Distribution Width CV 13.2 % (11.6-14.6); RBC Distribution Width SD 39.6 fl (35.1-43.9); Red Blood Count 4.97 M/mm3 (4.6-6.2); White Blood Count 6.2 K/mm3 (4.4-11.0)
[2023-06-27 07:48] LABS: ALB/GLOB Ratio 1.1 RATIO (0.9-2.4); AST(SGOT) 14 U/L (15-37); Alanine Aminotransfer ALT/SGPT 19 U/L (16-61); Albumin, Serum 3.2 g/dL (3.2-5.0); Alkaline Phosphatase 63 U/L (45-117); Anion Gap 6 (5-15); BUN 7 mg/dL (7-18); BUN/Creat Ratio 9.1 RATIO (10-20); Calcium,Total 8.3 mg/dL (8.5-10.1); Chloride 111 mmol/L (98-107); Creatinine, Serum 0.77 mg/dL (0.70-1.30); EST Glomerular Filtration Rate 129 mL/min (>60); Est Glom Filt Rate - Afr Amer 156 mL/min (>60); Globulin 2.9 g/dL (2.2-4.2); Glucose 90 mg/dL (74-106); Potassium 3.2 mmol/L (3.5-5.1); Protein, Total 6.1 g/dL (6.4-8.2); Sodium Level 141 mmol/L (136-145)
[2023-06-27 08:57] LABS: Magnesium 3.6 mg/dL (1.6-2.6)
[2023-06-27] MEDS: Ciprofloxacin 400 MG/200 ML BAG 200 MG IV ×2 (09:08→22:23)
--- NOTE | 2023-06-27 10:20 | NURSING ---
patient off of floor for AC
[2023-06-27] MEDS: Lactated Ringers 1,000 ML 15 ML IV (10:51)
--- NOTE | 2023-06-27 11:30 | COLBX_PTH ---
PATIENT: BENY MARTIN LOC: [facility] U#:[id number] AGE/SX: 28/M ROOM: [facility] RE06/26/[address]: Dr. Paul Villafana, : 1995 BED: 1 DIS: 06/28/2023 SPEC #: [id number] RECD: 06/27/23 15:21 STATUS: NORY RELyle #: [id number] JABARI: 06/27/23 11:[address]: Devendra Gerber DEPT: SURGICAL PATHOLOGY RECD BY: Eneida Tirado ENTERED: 06/28/23 09:57 SP TYPE: COLON BX OTHR DR: Dr. Mihir Granados, DO Dr. Fredi Baltazar, DO Dr. Paul Villafana, DO No Primary Care Phys Tissues: A - Duodenum, NOS B - Ileum, NOS C - Cecum, NOS D - COLON BIOPSY Procedures: Surgery Specimen Level IV Comments: @ Ordering doctor for SUIV edited from to @ by GARRET at 07/01/23 1044 @ Submitting doctor edited from to @ by [facility]RET at 07/01/23 1044 HEADER OPERATION: Colonoscopy, EGD biopsy PRE-OP DIAGNOSIS: Colitis, Enteritis, Vasovagal near-syncope TISSUE SUBMITTED: A- Duodenum biopsy, B- Terminal ileum biopsy, C- Cecum biopsy, D-Random colonic biopsy MICROSCOPIC DIAGNOSIS A. Duodenum, biopsy: Fragments of duodenum mucosa with mild nonspecific chronic inflammation. B. Terminal ileum, biopsy: Fragments of small intestine mucosa, no pathologic diagnosis. See comment. C. Cecum, biopsy: Fragments of colonic mucosa, no pathologic diagnosis. D. Colon, random biopsy: Fragments of colonic mucosa, no pathologic diagnosis. SUNNY/ 07/01/2023 COMMENT B. Prominent lymphoid aggregates are noted. MICROSCOPIC DESCRIPTION Slides are reviewed. GROSS DESCRIPTION A. Received in fixative is one container labeled with the patient's name and designated Duodenum biopsy. The specimen consists of multiple irregular fragments of light staley soft tissue that in aggregate measure 0.8 x 0.2 x 0.1 cm. The specimen is totally submitted in one cassette. B. Received in fixative is one container labeled with the patient's name and designated Terminal ileum biopsy. The specimen consists of multiple irregular fragments of light staley soft tissue that in aggregate measure 1.2 x 0.3 x 0.1 cm. The specimen is totally submitted in one cassette. C. Received in fixative is one container labeled with the patient's name and designated Cecum biopsy. The specimen consists of two irregular fragments of light staley soft tissue that in aggregate measure 0.8 x 0.3 x 0.1 cm. The specimen is totally submitted in one cassette. D. Received in fixative is one container labeled with the patient's name and designated Random colon biopsy. The specimen consists of multiple irregular fragments of light staley soft tissue that in aggregate measure 1.5 x 0.3 x 0.1 cm. The specimen is totally submitted in one cassette. SUNNY/ 06/28/2023 TC:3 CPT: 71483o4
--- NOTE | 2023-06-27 12:10 | OP.CCLET_ITS ---
06/27/2023 No Primary Care Physician Re : Upper GI endoscopy procedure for Aubrey Ford Dear Care Physician This procedure was performed on May. My impressions and recommendations are as follows: Impressions : - Normal esophagus. - Normal stomach. - Erythematous duodenopathy. Biopsied. Recommendations : - Return patient [facility]. - Resume regular diet. - Continue present medications. - Await pathology results. My findings are described in the full procedure note, which is enclosed. If I can be of further assistance, please feel free to contact me at . Sincerely, Devendra Gerber, 06/27/2023 12:10:22 PM This report has been signed electronically.
--- NOTE | 2023-06-27 12:10 | OP.EGD_ITS ---
Patient Name: Aubrey Ford Procedure Date: 06/27/2023 11:02 AM Date of : 1995 Age: 28 Procedure: Upper GI endoscopy Indications: Generalized abdominal pain Providers: Devendra Gerber DO Medicines: Monitored Anesthesia Care Patient Profile: This is a 28 year old male. Refer to note in patient chart for documentation of history and physical. Complications: No immediate complications. Procedure: Pre-Anesthesia Assessment: - Prior to the procedure, a History and Physical was performed, and patient medications and allergies were reviewed. The patient is competent. The risks and benefits of the procedure and the sedation options and risks were discussed with the patient. All questions were answered and informed consent was obtained. Patient identification and proposed procedure were verified by the physician. Mental Status Examination: alert and oriented. Airway Examination: normal oropharyngeal airway and neck mobility. Respiratory Examination: clear to auscultation. CV Examination: normal. Prophylactic Antibiotics: The patient does not require prophylactic antibiotics. Prior Anticoagulants: The patient has taken no anticoagulant or antiplatelet agents. ASA Grade Assessment: II - A patient with mild systemic disease. After reviewing the risks and benefits, the patient was deemed in satisfactory condition to undergo the procedure. The anesthesia plan was to use monitored anesthesia care (MAC). Immediately prior to administration of medications, the patient was re-assessed for adequacy to receive sedatives. The heart rate, respiratory rate, oxygen saturations, blood pressure, adequacy of pulmonary ventilation, and response to care were monitored throughout the procedure. The physical status of the patient was re-assessed after the procedure. After obtaining informed consent, the endoscope was passed under direct vision. Throughout the procedure, the patient's blood pressure, pulse, and oxygen saturations were monitored continuously. The pediatric colonoscope was introduced through the mouth, and advanced to the second part of duodenum. The upper GI endoscopy was accomplished without difficulty. The patient tolerated the procedure well. Scope In: 11:50:17 AM Scope Out: 11:52:22 AM Total Procedure Duration Time 0 hours 2 minutes 5 seconds Findings: The examined esophagus was normal. The entire examined stomach was normal. Patchy mildly erythematous mucosa without active bleeding and with no stigmata of bleeding was found in the first portion of the duodenum. Biopsies were taken with a cold forceps for histology. Verification of patient identification for the specimen was done. Estimated blood loss was minimal. Impression: - Normal esophagus. - Normal stomach. - Erythematous duodenopathy. Biopsied. Recommendation: - Return patient to [facility]. - Resume regular diet. - Continue present medications. - Await pathology results. Procedure Code(s): --- Professional --- 86579, Esophagogastroduodenoscopy, flexible, transoral; with biopsy, single or multiple CPT copyright 2021 [employer]. All rights reserved. The codes documented in this report are preliminary and upon inpatient coder review may be revised to meet current compliance requirements. Devendra Gerber DO 06/27/2023 12:10:22 PM This report has been signed electronically. Number of Addenda: 0 Note Initiated On: 06/27/2023 11:02 AM
--- NOTE | 2023-06-27 12:14 | OP.COLON_ITS ---
Patient Name: Aubrey Ford Procedure Date: 06/27/2023 11:52 AM Date of : 1995 Age: 28 Procedure: Colonoscopy Indications: Clinically significant diarrhea of unexplained origin Providers: Devendra Gerber DO Medicines: Monitored Anesthesia Care Patient Profile: This is a 28 year old male. Refer to note in patient chart for documentation of history and physical. Last Colonoscopy: none. The patient's first colonoscopy is today. Complications: No immediate complications. Procedure: Pre-Anesthesia Assessment: - Prior to the procedure, a History and Physical was performed, and patient medications and allergies were reviewed. The patient is competent. The risks and benefits of the procedure and the sedation options and risks were discussed with the patient. All questions were answered and informed consent was obtained. Patient identification and proposed procedure were verified by the physician. Mental Status Examination: alert and oriented. Airway Examination: normal oropharyngeal airway and neck mobility. Respiratory Examination: clear to auscultation. CV Examination: normal. Prophylactic Antibiotics: The patient does not require prophylactic antibiotics. Prior Anticoagulants: The patient has taken no anticoagulant or antiplatelet agents. ASA Grade Assessment: II - A patient with mild systemic disease. After reviewing the risks and benefits, the patient was deemed in satisfactory condition to undergo the procedure. The anesthesia plan was to use monitored anesthesia care (MAC). Immediately prior to administration of medications, the patient was re-assessed for adequacy to receive sedatives. The heart rate, respiratory rate, oxygen saturations, blood pressure, adequacy of pulmonary ventilation, and response to care were monitored throughout the procedure. The physical status of the patient was re-assessed after the procedure. After I obtained informed consent, the scope was passed under direct vision. Throughout the procedure, the patient's blood pressure, pulse, and oxygen saturations were monitored continuously. The pediatric colonoscope was introduced through the anus and advanced to the terminal ileum. The colonoscopy was performed without difficulty. The patient tolerated the procedure well. The quality of the bowel preparation was adequate. The terminal ileum, ileocecal valve, appendiceal orifice, and rectum were photographed. Scope In: 11:54:48 AM Scope Withdrawal Time 0 hours 6 minutes 50 seconds Scope Out: 12:04:20 PM Total Procedure Duration Time 0 hours 9 minutes 32 seconds Findings: The digital rectal exam findings include decreased sphincter tone. The rectum was moderately redundant. Retroflexion in the rectum was not performed due to anatomy. Moderate rectal prolapse was present. An area of mildly congested mucosa was found in the rectum, in the recto-sigmoid colon, in the sigmoid colon, in the descending colon, at the splenic flexure, in the transverse colon and in the cecum. Biopsies were taken with a cold forceps for histology. Verification of patient identification for the specimen was done. Estimated blood loss was minimal. Diffuse mild inflammation characterized by congestion (edema), erythema and friability was found in the terminal ileum. Biopsies were taken with a cold forceps for histology. Verification of patient identification for the specimen was done. Estimated blood loss was minimal. Impression: - Decreased sphincter tone found on digital rectal exam. - Redundant colon. - Rectal prolapse. - Congested mucosa in the rectum, in the recto-sigmoid colon, in the sigmoid colon, in the descending colon, at the splenic flexure, in the transverse colon and in the cecum. Biopsied. - Mild inflammation was found in the ileum secondary to ileitis. Biopsied. Recommendation: - Return patient to [facility] for [facility] care. - Resume previous diet. - Continue present medications. - Await pathology results. - Repeat colonoscopy for surveillance based on pathology results. Procedure Code(s): --- Professional --- 49403, Colonoscopy, flexible; with biopsy, single or multiple CPT copyright 2021 [employer]. All rights reserved. The codes documented in this report are preliminary and upon marbleizer review may be revised to meet current compliance requirements. Devendra Gerber DO 06/27/2023 12:14:03 PM This report has been signed electronically. Number of Addenda: 0 Note Initiated On: 06/27/2023 11:52 AM
--- NOTE | 2023-06-27 12:14 | OP.CCLET_ITS ---
06/27/2023 No Primary Care Physician Re : Colonoscopy procedure for Aubrey Ford Dear Care Physician This procedure was performed on May. My impressions and recommendations are as follows: Impressions : - Decreased sphincter tone found on digital rectal exam. - Redundant colon. - Rectal prolapse. - Congested mucosa in the rectum, in the recto-sigmoid colon, in the sigmoid colon, in the descending colon, at the splenic flexure, in the transverse colon and in the cecum. Biopsied. - Mild inflammation was found in the ileum secondary to ileitis. Biopsied. Recommendations : - Return patient to [facility]. - Resume previous diet. - Continue present medications. - Await pathology results. - Repeat colonoscopy for surveillance based on pathology results. My findings are described in the full procedure note, which is enclosed. If I can be of further assistance, please feel free to contact me at . Sincerely, Devendra Gerber, 06/27/2023 12:14:03 PM This report has been signed electronically.
[2023-06-27] MEDS: Potassium Chloride Oral Tablet 20 MEQ 40 MEQ PO (13:11)
[2023-06-27] MEDS: Pantoprazole Sodium 20 MG Tablet PO (13:11)
[2023-06-27] MEDS: Enoxaparin 40 MG/0.4 ML Syringe SC (13:11)
--- NOTE | 2023-06-27 13:23 | PCM.PN.HOSP ---
Reason for Visit Reason for Visit: Diagnoses Noninfective gastroenteritis and colitis, unspecified (06/26/23) Syncope and collapse (06/26/23) Subjective Subjective Patient admitted yesterday afternoon for abdominal pain and diarrhea with noted diffuse enteritis concerning for infectious versus possible inflammatory etiology noted on CT abdomen pelvis. Patient had EGD and colonoscopy done this morning. I saw the patient at the bedside later this afternoon. Patient was laying comfortably in bed and sleeping when I arrived to the room. He appeared somewhat somnolent and fatigued but did answer questions for me with short appropriate responses. Denied any current abdominal pain or discomfort. Had not had any p.o. intake since returning back to the floor. Otherwise denied any acute concerns. Objective Data Objective Data Vital Signs: Vital Signs Temp Pulse Resp BP Pulse Ox O2 Del Method 97.8 F 56 L 14 122/79 H 97 Room Air 06/27/23 12:59 06/27/23 12:59 06/27/23 12:59 06/27/23 12:59 06/27/23 12:59 06/27/23 12:59 Oxygen Delivery Method Room Air Weight: 122.045 kg Body Mass Index (BMI) 36.5 Intake & Output: Intake and Output for Last 24 Hours 06/25/23 06/26/23 06/27/23 23:59 23:59 23:59 Intake Total 2600 / 2600 1927.5 / 1927.5 Balance 2600 / 2600 1927.5 / 1927.5 Lab / Micro Data 06/27/23 06:26 06/27/23 06:26 Labs: Laboratory Results - last 24 hr 06/26/23 13:16: WBC 9.6, RBC 5.98, Hgb 16.6 H, Hct 48.6, MCV 81.3, MCH 27.8, MCHC 34.2, RDW Std Deviation 38.0, RDW Coeff of Jennifer 13.0, Plt Count 317, MPV 9.1, Immature Gran % (Auto) 0.300, Neut % (Auto) 64.5, Lymph % (Auto) 22.7, [place] % (Auto) 8.1, Eos % (Auto) 3.8, Baso % (Auto) 0.6, Absolute Neuts (auto) 6.2, Absolute Lymphs (auto) 2.17, Nucleated RBC % 0, Sodium 137, Potassium 3.5, Chloride 108 H, Carbon Dioxide 24.0, Anion Gap 5, BUN 11, Creatinine 0.90, Estim Creat Clear Calc 167.59, Est GFR (MDRD) Af Amer 130, Est GFR (MDRD) Non-Af 108, BUN/Creatinine Ratio 12.2, Glucose 101, Calcium 8.2 L, Total Bilirubin 0.70, AST 13 L, ALT 23, Alkaline Phosphatase 77, Total Protein 6.8, Albumin 3.5, Globulin 3.3, Albumin/Globulin Ratio 1.1, Lipase 28 06/26/23 16:30: Urine Color Yellow, Urine Clarity Clear, Urine pH 5.0, Ur Specific Paradise 1.010, Urine Protein 15 H, Urine Glucose (UA) Normal, Urine Ketones 5 H, Urine Occult Blood Negative, Urine Nitrite Negative, Urine Bilirubin Negative, Urine Urobilinogen Normal, Ur Leukocyte Esterase 25 H, Urine RBC 0 SEEN, Urine WBC 0 SEEN, Ur Squamous Epith Cells 0-5 SEEN, Urine Bacteria 0 SEEN, Urine Mucus 0 SEEN 06/27/23 06:26: WBC 6.2, RBC 4.97, Hgb 13.7, Hct 41.3, MCV 83.1, MCH 27.6, MCHC 33.2, RDW Std Deviation 39.6, RDW Coeff of Jennifer 13.2, Plt Count 226, MPV 9.4, Immature Gran % (Auto) 0.500, Neut % (Auto) 43.2 L, Lymph % (Auto) 41.7 H, [place] % (Auto) 8.0, Eos % (Auto) 5.8 H, Baso % (Auto) 0.8, Absolute Neuts (auto) 2.7, Absolute Lymphs (auto) 2.60, Nucleated RBC % 0, Sodium 141, Potassium 3.2 L, Chloride 111 H, Carbon Dioxide 24.0, Anion Gap 6, BUN 7, Creatinine 0.77, Estim Creat Clear Calc 194.40, Est GFR (MDRD) Af Amer 156, Est GFR (MDRD) Non-Af 129, BUN/Creatinine Ratio 9.1 L, Glucose 90, Calcium 8.3 L, Magnesium 3.6 H, Total Bilirubin 0.50, AST 14 L, ALT 19, Alkaline Phosphatase 63, Total Protein 6.1 L, Albumin 3.2, Globulin 2.9, Albumin/Globulin Ratio 1.1 Micro: Microbiology 06/26/23 Unknown Stool Enteric Bacteriology - Final 06/26/23 Unknown Stool Clostridioides difficile (PCR) - Final Radiography Diagnostic Testing: Radiology Impression Abdomen/Pelvis CT 06/26/23 12:58 IMPRESSION: Findings in keeping with diffuse enteritis worse in the ileum and distal ileum as well as colitis of the right hemicolon. Ascitic fluid. Diffuse fatty infiltration of the liver. The patient is status post appendectomy. Electronically Signed: Elijah Carvajal MD at 14:16 EDT , Physical Exam Const alert, oriented x3 and no apparent distress Constitutional Narrative: Pleasant younger male, obese, mildly somnolent and fatigued appearing post EGD and colonoscopy, otherwise laying comfortably in bed, conversing normally and in no acute distress. General Appearance: cooperative and comfortable HEENT normocephalic, head/scalp atraumatic, hearing grossly normal bilaterally, nasal mucous membranes and turbinates normal and moist oral mucous membranes Eyes PERRL, EOMs intact bilaterally and conjunctivae normal Neck full ROM Chest inspection of chest normal Resp normal respiratory effort, normal air movement, no use of accessory muscles and clear to auscultation bilaterally Cardio regular rate, regular rhythm, no murmurs and peripheral pulses 2+ throughout GI GI Narrative: Abdomen mildly distended and mildly hard on palpation. Nontender on palpation. Back/Spine normal ROM Extremity normal to inspection, full ROM and no pedal edema Skin no rashes or lesions noted Neuro moves all extremities and no focal motor deficits Speech: speech normal Psych mental status grossly normal Assessment & Plan Assessment/Plan (1) Enteritis: PLAN: Plan Patient is a 28-year-old male who presented to [facility] ED on 06/26/2023 with worsening abdominal pain and diarrhea. 1. Enteritis/colitis ? Presented with 1 week history of worsening abdominal pain with diarrhea. Notably was seen in the ED a week prior to admission for constipation. Had been taking a laxative since then with liquid stool production but continued to have significant rectal pressure along with abdominal bloating. Noted episodes of severe cramping with near syncope just prior to admission as well. ? CT abdomen pelvis with IV contrast on admit showed diffuse enteritis worse in the ileum and distal ileum as well as colitis of the right hemicolon. ? C. difficile and stool PCR negative. ? GI following. S/p EGD and colonoscopy on 06/26. EGD showed normal esophagus, normal stomach, erythematous duodenopathy with biopsy. Colonoscopy showed decreased sphincter tone on digital rectal exam, rectal prolapse, redundant colon, congested mucosa from rectum and throughout colon all the way to the cecum, mild inflammation in the ileum secondary to ileitis that was biopsied. ? Appreciate further GI recs. Follow-up IBD labs sent by GI. Lucero to resume regular diet. Will continue IV Flagyl and IV ciprofloxacin for now. Chronic medical conditions: ? Obesity: BMI 36 on admit. Encouraged lifestyle modifications. Complicates hospital course, care and prognosis. ? Schizoaffective disorder: Stable. Continue home quetiapine. ? Suspected fatty liver disease: CT abdomen pelvis on admit showed diffuse fatty infiltration of the liver. LFTs normal. No inpatient needs, recommend outpatient follow-up. ? History of appendectomy DVT prophylaxis: Lovenox CODE STATUS: Full code, verified Expected disposition: Home, 1 to 2 days Total clinical time spent by myself addressing the patient's medical issues, reviewing all the data, and collaborating with patient's care team: 35 minutes. Charges/Coding Visit Charges Inpatient E&M: 00669 Subs Hosp L2
--- NOTE | 2023-06-27 15:00 | CASEMGMT ---
NIYAH BRAND Face to Face with patient for initial transition planning/care coordination assessment. NIYAH BRAND introduced self and role at [facility]. Patient lying in bed, alert and oriented. Patient willing to participate in assessment and is able to answer all questions appropriately. Care providers, pharmacy, and demographics verified. PCP: None, list provided Specialists: Del Her, psychiatrist at [facility] Preferred Pharmacy: [place] Insurance: [employer] Prescription Benefit: yes Living Will/HPOA: none LNOK: anai, brother Living Arrangements: Patient states he lives in a chcf. Patient states he is independent at home. Transportation: chcf. DME/HHC: Patient denies DME or previous HHC or SNF. NIYAH BRAND updated SW that patient resides in chcf. Patient wishes to discharge home, denies need for home health at this time. Patient states he has no further needs or concerns at this time. CM to follow for discharge planning needs that may arise. Disposition Plan: Patient to return to chcf with follow-up plans in place. Leandra LUNA, RN, CM
--- NOTE | 2023-06-27 15:15 | CASEMGMT ---
ROMAIN called [facility] and patient has a Board Worker, Juan Alberto Magaña. ROMAIN left a voice mail for Juan Alberto to return ROMAIN's call. Mayra CORREA
[2023-06-27] MEDS: QUEtiapine 100 MG Tablet 400 MG PO (21:15)
[2023-06-28 03:27] VITALS: BP 113/67; PULSE 58; RESP 18; TEMP 36.7; O2SAT 98
[2023-06-28] MEDS: metroNIDAZOLE 500 MG/100 ML BAG 100 MG IV (05:11)
[2023-06-28 07:55] LABS: Hematocrit 41.5 % (40-54); Hemoglobin 14.3 g/dL (13.0-16.5); Mean Corp Hgb Conc 34.5 g/dL (32-36); Mean Corpuscular Hgb 28.4 pg (27.0-32.0); Mean Corpuscular Volume 82.5 fL (80-94); Mean Platelet Vol. 9.5 fl (6.2-12.0); Platelet Count 247 K/mm3 (150-450); RBC Distribution Width SD 39.3 fl (35.1-43.9); Red Blood Count 5.03 M/mm3 (4.6-6.2); White Blood Count 4.9 K/mm3 (4.4-11.0)
[2023-06-28 08:11] LABS: Anion Gap 5 (5-15); BUN 7 mg/dL (7-18); BUN/Creat Ratio 8.8 RATIO (10-20); Calcium,Total 8.4 mg/dL (8.5-10.1); Chloride 111 mmol/L (98-107); Creatinine, Serum 0.79 mg/dL (0.70-1.30); EST Glomerular Filtration Rate 125 mL/min (>60); Est Glom Filt Rate - Afr Amer 151 mL/min (>60); Estimated Creatinine Clearance 189.48 ml/min; Glucose 86 mg/dL (74-106); Potassium 3.4 mmol/L (3.5-5.1); Sodium Level 142 mmol/L (136-145)
--- NOTE | 2023-06-28 08:54 | EX.PCM.PN.GI ---
Subjective Subjective Patient underwent colonoscopy and EGD yesterday. His upper endoscopy did not show much pathology. However his terminal ileum and on his colonoscopy did show acute enteritis. Biopsies were taken. Objective Data Objective Data Vital Signs: Vital Signs Temp Pulse Resp BP Pulse Ox O2 Del Method 97.4 F L 68 18 127/79 H 99 Room Air 06/28/23 13:35 06/28/23 13:35 06/28/23 13:35 06/28/23 09:21 06/28/23 13:35 06/28/23 13:35 Oxygen Delivery Method Room Air Weight: 269 lb 1.01 oz Body Mass Index (BMI) 36.5 Intake & Output: Intake and Output for Last 24 Hours 06/26/23 06/27/23 06/28/23 23:59 23:59 23:59 Intake Total 2600 / 2600 2462.75 / 2462.75 500 / 500 Balance 2600 / 2600 2462.75 / 2462.75 500 / 500 Lab / Micro Data 06/28/23 06:15 06/28/23 06:15 Labs: Laboratory Results - last 24 hr 06/28/23 06:15: WBC 4.9, RBC 5.03, Hgb 14.3, Hct 41.5, MCV 82.5, MCH 28.4, MCHC 34.5, RDW Std Deviation 39.3, RDW Coeff of Jennifer 13.0, Plt Count 247, MPV 9.5, Sodium 142, Potassium 3.4 L, Chloride 111 H, Carbon Dioxide 26.0, Anion Gap 5, BUN 7, Creatinine 0.79, Estim Creat Clear Calc 189.48, Est GFR (MDRD) Af Amer 151, Est GFR (MDRD) Non-Af 125, BUN/Creatinine Ratio 8.8 L, Glucose 86, Calcium 8.4 L Micro: Microbiology 06/26/23 Unknown Stool Enteric Bacteriology - Final 06/26/23 Unknown Stool Clostridioides difficile (PCR) - Final Physical Exam Const alert, oriented x3 and no apparent distress Constitutional Narrative: Pleasant younger male, obese, mildly somnolent and fatigued appearing post EGD and colonoscopy, otherwise laying comfortably in bed, conversing normally and in no acute distress. General Appearance: cooperative and comfortable HEENT normocephalic, head/scalp atraumatic, hearing grossly normal bilaterally, nasal mucous membranes and turbinates normal and moist oral mucous membranes Eyes PERRL, EOMs intact bilaterally and conjunctivae normal Neck full ROM Chest inspection of chest normal Resp normal respiratory effort, normal air movement, no use of accessory muscles and clear to auscultation bilaterally Cardio regular rate, regular rhythm, no murmurs and peripheral pulses 2+ throughout GI GI Narrative: Abdomen mildly distended and mildly hard on palpation. Nontender on palpation. Back/Spine normal ROM Extremity normal to inspection, full ROM and no pedal edema Skin no rashes or lesions noted Neuro moves all extremities and no focal motor deficits Speech: speech normal Psych mental status grossly normal Assessment & Plan Assessment/Plan (1) Enteritis: PLAN: Plan Patient is a 28-year-old male who presented to [facility] ED on 06/26/2023 with worsening abdominal pain and diarrhea. Enteritis/colitis ? Presented with 1 week history of worsening abdominal pain with diarrhea. Notably was seen in the ED a week prior to admission for constipation. Had been taking a laxative since then with liquid stool production but continued to have significant rectal pressure along with abdominal bloating. Noted episodes of severe cramping with near syncope just prior to admission as well. ? CT abdomen pelvis with IV contrast on admit showed diffuse enteritis worse in the ileum and distal ileum as well as colitis of the right hemicolon. ? C. difficile and stool PCR negative. ? S/p EGD and colonoscopy on 06/26. EGD showed normal esophagus, normal stomach, erythematous duodenopathy with biopsy. Colonoscopy showed decreased sphincter tone on digital rectal exam, rectal prolapse, redundant colon, congested mucosa from rectum and throughout colon all the way to the cecum, mild inflammation in the ileum secondary to ileitis that was biopsied. ? Appreciate further GI recs. Follow-up IBD labs sent by [facility]. Nic to resume regular diet. Will continue IV Flagyl and IV ciprofloxacin for now. Charges/Coding Visit Charges Inpatient E&M: 14893 Subs Hosp L3
[2023-06-28 09:21] VITALS: BP 127/79; PULSE 66; RESP 16; TEMP 36.3; O2SAT 97
[2023-06-28] MEDS: Pantoprazole Sodium 20 MG Tablet PO (09:26)
[2023-06-28] MEDS: Ciprofloxacin 400 MG/200 ML BAG 200 MG IV (09:26)
[2023-06-28] MEDS: Enoxaparin 40 MG/0.4 ML Syringe SC (09:26)
[2023-06-28] MEDS: 0.9% Saline Lock 10 ML Syringe IV (09:26)
--- NOTE | 2023-06-28 11:07 | CASEMGMT ---
Patient is going to be discharged today. ROMAIN met with patient and confirmed he had transportation back to the senior care. Patient denied having a legal guardian. Patient also denied needing anyone to call the senior care. ROMAIN did call [facility] yesterday and left a message for his rehabilitation case coordinator. ROMAIN has not heard back. Mayra Taylor MSW MADELINE
--- NOTE | 2023-06-28 11:26 | DCINST_ITS ---
Discharge Instructions Diet Discharge Diet: No restrictions Activity Discharge Activity: Return to Normal Activity Weight Bearing Status: Full weight bearing Follow Up Care Test Results: Test results from this visit will be discussed in further detail at your follow- up appointment, if applicable. Discharge Plan Admission Admit Date/Time: 06/26/23 17:59 Primary Reason for Your Visit: Enteritis, possible Crohn's disease Attending Provider: Paul Villafana Primary Care Provider: Care Physician,No Primary Consulting Providers: Fredi Baltazar; Mihir Granados Discharge Orders/Prescriptions Prescriptions: New prednisone 20 mg tablet 20 mg PO BID Qty: 40 0RF Rx Instructions: 1 twice a day for 1 week, then 1 daily thereafter ciprofloxacin HCl [Cipro] 500 mg tablet 500 mg PO BID Qty: 14 0RF metronidazole 500 mg tablet 500 mg PO TID Qty: 21 0RF Continued quetiapine 400 mg tablet extended release 24 hr 400 mg PO QHS omeprazole 10 mg capsule,delayed release(DR/EC) 10 mg PO DAILY Referrals / Follow Up: Care Physician,No Primary [Primary Care Provider] - FriendDevendra DO [Med Staff - Active Staff] - See Referral Note (In 3 weeks) Disposition Disposition (needs filled in before D/C Order can be placed): Home, Self Care
--- NOTE | 2023-06-28 11:45 | PCM.DC.SUM ---
Providers Date of Admission: 06/26/23 Date of Discharge: 06/28/23 Primary Care Physician: Tati Primary Care Phys Consultations 06/26/23 18:11 Consult: Gastroenterology Routine Consulting Provider: Nino Veragra Reason for Consult: colitis EMERGENT Consult: No MD Notified: Yes Date Notified: 06/26/23 Time Notified: 18:01 Method of Notification: ED Physician Initiated Reason For Visit: COLITIS Diagnosis Discharge Diagnosis (1) Enteritis: Status: Acute Code(s): K52.9 - Noninfective gastroenteritis and colitis, unspecified Plan 1. Acute colitis-etiology unclear #2 schizophrenia #3 hypokalemia Medications at Discharge Home Medications quetiapine 400 mg tablet,extended release 24 hr 400 mg PO QHS 11/16/22 omeprazole 10 mg capsule,delayed release 10 mg PO DAILY 06/26/23 ciprofloxacin HCl 500 mg tablet (Cipro) 500 mg PO BID #14 tabs 06/28/23 metronidazole 500 mg tablet 500 mg PO TID #21 tabs 06/28/23 prednisone 20 mg tablet 20 mg PO BID #40 tabs 06/28/23 Hospital Course Operations None Procedures Colonoscopy and EGD Summary of Care Provided Minutes Spent on Discharge: 31 Hospital Course: This 28-year-old white male was seen in the emergency room with chief complaint of abdominal discomfort. Patient resides in a skilled nursing due to schizophrenia. He had been seen previously in the emergency room with a diagnosis of constipation advised to take a laxative. Workup in the emergency room included a CBC which showed a normal white blood cell count, chemistry panel was unremarkable, CT of the abdomen and pelvis was obtained, it showed findings in keeping with diffuse enteritis worse in the ileum and distal ileum as well as colitis of the right hemicolon. Patient received IV pain and nausea medications and was given IV Cipro and Flagyl, gastroenterology was contacted and the patient was admitted under the hospitalist service. Patient underwent a colonoscopy and an EGD, EGD was unremarkable, colonoscopy revealed congested mucosa in the rectum, in the rectosigmoid colon, in the sigmoid colon, in the descending colon, at the splenic flexure, in the transverse colon and in the cecum-these areas were biopsied. Mild inflammation was found in the ileum, these areas were all biopsied. Patient was treated with IV Cipro and Flagyl while he was hospitalized. On 06/28/2023, patient was seen and examined: On examination he appeared in good health and spirits. Vital signs as documented. Skin warm and dry and without overt rashes. Neck without JVD, neck was supple, trachea midline, thyroid was normal. Lungs clear bilaterally, normal air movement was noted. Heart exam notable for regular rhythm, normal sounds and absence of murmurs, rubs or gallops. Abdomen unremarkable and without evidence of organomegaly, masses, or abdominal aortic enlargement. Bowel sounds are present, abdomen is not distended. Extremities nonedematous, no cyanosis was noted, no clubbing was noted. Neuro: Cranial nerves II through XII are grossly intact, no focal motor deficits were noted, sensation to light touch and pinprick intact, motor exam 5/5 throughout. Psych: Patient is alert and oriented x3, he does not appear anxious or depressed, he does not appear agitated. On 06/28/2023, patient was seen and examined and felt to be stable for discharge home Weight / BMI Weight Weight: 122.045 kg Body Mass Index (BMI) 36.5 ABG / Lab / Microbiology Data 06/28/23 06:15 06/28/23 06:15 Laboratory: Laboratory Results - last 24 hr 06/28/23 06:15: WBC 4.9, RBC 5.03, Hgb 14.3, Hct 41.5, MCV 82.5, MCH 28.4, MCHC 34.5, RDW Std Deviation 39.3, RDW Coeff of Jennifer 13.0, Plt Count 247, MPV 9.5, Sodium 142, Potassium 3.4 L, Chloride 111 H, Carbon Dioxide 26.0, Anion Gap 5, BUN 7, Creatinine 0.79, Estim Creat Clear Calc 189.48, Est GFR (MDRD) Af Amer 151, Est GFR (MDRD) Non-Af 125, BUN/Creatinine Ratio 8.8 L, Glucose 86, Calcium 8.4 L Microbiology: Microbiology 06/26/23 Unknown Stool Enteric Bacteriology - Final 06/26/23 Unknown Stool Clostridioides difficile (PCR) - Final D/C Instructions Discharge Diet: No restrictions Weight Bearing Status: Full weight bearing Meaningful Use Info Meaningful Use Diagnoses (Choose all that apply): None applicable Discharge Plan Admission Admit Date/Time: 06/26/23 17:59 Primary Reason for Your Visit: Enteritis, possible Crohn's disease Attending Provider: Paul Villafana Primary Care Provider: Care Physician,No Primary Consulting Providers: Fredi Baltazar; Mihir Granados Discharge Orders/Prescriptions Prescriptions: New prednisone 20 mg tablet 20 mg PO BID Qty: 40 0RF Rx Instructions: 1 twice a day for 1 week, then 1 daily thereafter ciprofloxacin HCl [Cipro] 500 mg tablet 500 mg PO BID Qty: 14 0RF metronidazole 500 mg tablet 500 mg PO TID Qty: 21 0RF Continued quetiapine 400 mg tablet extended release 24 hr 400 mg PO QHS omeprazole 10 mg capsule,delayed release(DR/EC) 10 mg PO DAILY Referrals / Follow Up: Devendra Gerber DO [Med Staff - Active Staff] - 09/27/23 12:30 pm (In 3 weeks) Cami De Oliveira [Non-Staff] - 07/29/23 10:30 am Disposition Disposition (needs filled in before D/C Order can be placed): Home, Self Care Charges/Coding Visit Charges Inpatient E&M: 39270 Disch Hosp >30min
--- NOTE | 2023-06-28 13:17 | CASEMGMT ---
ROMAIN called [facility] and left another voice mail for Juan Alberto patient's case loader operator. ROMAIN also faxed discharge instructions with appointments to [facility] [phone]. Mayra CORREA
[2023-06-28 13:35] VITALS: PULSE 68; RESP 18; TEMP 36.3; O2SAT 99
== END 2023-06-28 13:39 | disposition home or self-care (01) | DRG 249 ==
LOC: ED 17:04 → PCU 06-27 01:05
PROVIDERS: Hospitalist; Internal Medicine Gastroenterology; Emergency Provider Emergency Medicine; Visit Provider Internal Medicine
PROC: 0DJD8ZZ Inspection of Lower Intestinal Tract, Via Natural or Artificial Opening Endoscopic (ICD-10-PCS; CPT 45378; principal; 2023-06-27 11:25)
DX: K52.9 Noninfective gastroenteritis and colitis, unspecified (principal); F25.9 Schizoaffective disorder, unspecified; K76.0 Fatty (change of) liver, not elsewhere classified; F17.210 Nicotine dependence, cigarettes, uncomplicated; Q43.8 Other specified congenital malformations of intestine; K31.89 Other diseases of stomach and duodenum; K62.3 Rectal prolapse; E87.6 Hypokalemia; E66.9 Obesity, unspecified; Z68.36 Body mass index [BMI] 36.0-36.9, adult; Z90.49 Acquired absence of other specified parts of digestive tract
CPT/HCPCS: 36415; 74018; 74177; 80048; 80053; 81001; 83690; 83735; 85025; 85027; 87493; 87506; 88305; 99284; 99406; J7030; J7120; Q9967; A4216; J0744; J2405

== ENCOUNTER 2023-08-16 10:56 | Emergency (ER) | payer MEDICAID, SELFPAY ==
[2023-08-16 10:57] VITALS: BP 143/78; PULSE 96; RESP 17; TEMP 35.8; O2SAT 96; BMI 36.0
--- NOTE | 2023-08-16 11:37 | EX.ED.DYSGE1 ---
HPI <YVAN Zavala - Last Filed: 08/16/23 13:16> History of Present Illness Chief Complaint: Abd Pain Narrative Narrative: Patient is a 28-year-old male with history of schizophrenia, colitis who presents to the emergency department with significant pain to his abdomen, difficulty going to the bathroom, nausea with decreased appetite. Patient is an established patient of Dr. Gerber. Patient had a EGD and colonoscopy on June 27, 2023, did show a prolapsed rectum, as well as some inflammation in the colon as well as the cecum. Patient was admitted and on IV Flagyl and Cipro. Patient has a follow-up appointment with Dr. Gerber at the end of the month however patient states that he is having difficulty going to the bathroom, he feels a lot of pressure in his abdomen is here for evaluation. Patient denies any fever however does have subjective chills, patient denies any vomiting, blood in stool. [facility] <YVAN Zavala - Last Filed: 08/16/23 13:16> [facility] Medical History (Updated 08/16/23 @ 13:13 by YVAN Zavala) Bipolar disorder Anxiety Smoker Asthma Enteritis Vasovagal near-syncope Colitis Abdominal pain, acute Schizo affective schizophrenia Home Medications ?Medication ?Instructions ?Recorded ?Last Taken ?Type quetiapine 400 mg tablet,extended 400 mg PO QHS 11/16/22 06/25/23 History release 24 hr omeprazole 10 mg capsule,delayed 10 mg PO DAILY 06/26/23 06/26/23 History release ciprofloxacin HCl 500 mg tablet 500 mg PO BID #14 tabs 06/28/23 Unknown Rx (Cipro) ciprofloxacin HCl 500 mg tablet 500 mg PO BID #20 tabs 08/16/23 Unknown Rx (Cipro) haloperidol 5 mg tablet 5 mg PO QHS 08/16/23 Unknown History metronidazole 500 mg tablet 500 mg PO TID 10 days #30 tabs 08/16/23 Unknown Rx ondansetron 4 mg disintegrating 4 mg PO Q8H PRN PRN Nausea #10 tabs 08/16/23 Unknown Rx tablet oxycodone-acetaminophen 5 mg-325 1 tab PO Q8H PRN pain 3 days #10 08/16/23 Unknown Rx mg tablet (Percocet) tabs prednisone 20 mg tablet 20 mg PO DAILY #14 tabs 08/16/23 Unknown Rx Allergy/AdvReac Type Severity Reaction Status Date / Time Penicillins Allergy Hives Verified 06/27/23 10:44 Sulfa (Sulfonamide Allergy Hives Verified 06/27/23 10:44 Antibiotics) Family History Brother Crohn's disease Surgical History History of appendectomy Social History Smoking Status: Current every day smoker tobacco type: cigarettes ROS <BOB ZavalaC - Last Filed: 08/16/23 13:16> ROS ED ROS Narrative Constitutional: Negative for fever, chills, weight loss, weakness Eyes: Negative for vision loss, vision change, double vision ENT: Negative for any sore throat, ear pain, congestion Cardiovascular: Negative for any chest pain, tightness, palpitations Respiratory: Negative for any cough, sputum production, hemoptysis, dyspnea, dyspnea on exertion, orthopnea Gastrointestinal: Negative for any vomiting, constipation, blood in stool, blood in vomit. Positive for abdominal pain, nausea. Positive diarrhea : Negative for any urinary frequency, dysuria, retention, blood in urine Muscle skeletal: Negative for any neck pain, back pain Neurological: Negative for any headache, syncope, dizziness Skin: Negative for any rashes, itching, abrasions, lacerations Psychiatric: Negative for any depression, anxiety, stress, suicidal ideation, homicidal ideation Hematologic: Negative for any excessive bruising, easy bleeding EXAM <BOB ZavalaC - Last Filed: 08/16/23 13:16> Physical Exam Narrative Exam Narrative: Vital signs reviewed. HEET: Head normocephalic atraumatic, TMs clear bilaterally. Posterior pharynx is clear, moist mucous membranes. Nares clear bilaterally. Neck: Supple with no lymphadenopathy or tenderness. No signs of meningismus. Cardiac: Regular rate and rhythm no murmurs gallops or rubs, equal peripheral pulses bilaterally. Respiratory: Lungs clear to auscultation bilaterally. No chest tenderness. Abdomen: Soft, nondistended. No abdominal bruit or pulsatile masses. No hepatosplenomegaly. Patient has generalized abdominal pain, worse to the right lower, right upper abdomen. Extremities: No peripheral edema, no signs of gross trauma or deformity. Active full range of motion of all extremities. Neuro: Cranial nerves II through XII intact, no focal neurological deficits. Skin: Clean dry and intact with no rash, purpura, petechiae, vesicles or pustules. Backs/flank: No CVA tenderness, no midline spinal tenderness, no deformity. Psych: Normal mood and affect. No SI, HI or acute psychosis. Const Vital Signs: 08/16/23 10:57 08/16/23 12:56 Temperature 96.5 F L Temperature Source Temporal Pulse Rate 96 80 Respiratory Rate 17 16 Blood Pressure 143/78 H 140/72 H Blood Pressure Mean 99 94 Pulse Ox 96 98 Oxygen Delivery Method Room Air Room Air <Dr. Elpidio Hook DO - Last Filed: 08/16/23 13:20> Physical Exam Const Vital Signs: 08/16/23 10:57 08/16/23 12:56 Temperature 96.5 F L Temperature Source Temporal Pulse Rate 96 80 Respiratory Rate 17 16 Blood Pressure 143/78 H 140/72 H Blood Pressure Mean 99 94 Pulse Ox 96 98 Oxygen Delivery Method Room Air Room Air [facility] <YVAN Zavala - Last Filed: 08/16/23 13:16> [facility] Lab Data Labs: Laboratory Results - last 24 hr 08/16/23 08/16/23 11:43 12:45 WBC 8.5 RBC 6.27 H Hgb 17.6 H Hct 50.8 MCV 81.0 MCH 28.1 MCHC 34.6 RDW Std Deviation 37.7 RDW Coeff of Jennifer 12.9 Plt Count 264 MPV 9.4 Immature Gran % (Auto) 0.400 Neut % (Auto) 55.1 Lymph % (Auto) 26.0 [place] % (Auto) 11.3 H Eos % (Auto) 6.4 H Baso % (Auto) 0.8 Absolute Neuts (auto) 4.7 Absolute Lymphs (auto) 2.22 Nucleated RBC % 0 Sodium 138 Potassium 3.6 Chloride 104 Carbon Dioxide 29.0 Anion Gap 5 BUN 14 Creatinine 0.97 Estim Creat Clear Calc 153.33 Est GFR (MDRD) Af Amer 119 Est GFR (MDRD) Non-Af 98 BUN/Creatinine Ratio 14.4 Glucose 97 Lactic Acid 1.0 Calcium 9.3 Total Bilirubin 1.00 AST 18 ALT 32 Alkaline Phosphatase 89 Total Protein 7.7 Albumin 4.0 Globulin 3.7 Albumin/Globulin Ratio 1.1 Lipase 26 Urine Color Yellow Urine Clarity Sl. Cloudy Urine pH 6.5 Ur Specific [place] 1.015 Urine Protein 30 H Urine Glucose (UA) Normal Urine Ketones 15 H Urine Occult Blood Negative Urine Nitrite Negative Urine Bilirubin 1 H Urine Urobilinogen 1 H Ur Leukocyte Esterase 25 H Urine RBC 0 SEEN Urine WBC 0-5 SEEN Ur Squamous Epith Cells 0-5 SEEN Urine Bacteria 0 SEEN Urine Mucus 0 SEEN Radiography Diagnostic Testing: Clinical Impression(s) from Imaging Studies Abdomen/Pelvis CT 08/16/23 11:38 IMPRESSION: Diffuse circumferential wall thickening and inflammatory changes of small bowel loops in the right mid abdomen and right lower quadrant. There is thickening of the adjacent cecum. Inflammatory bowel disease should be ruled out. Small amount of free fluid in the pelvis. Fatty infiltration of the liver. Electronically Signed: Elijah Carvajal MD at 12:35 EDT , Treatment and Re-Evaluation :: Differential diagnosis includes however is not limited to: Colitis, diverticulitis, enteritis, prolapsed rectum, bowel obstruction Patient appears to be in mild distress secondary to abdominal pain. Patient's vital signs are stable. Presenting to the emergency department for abdominal pain, does have history of colitis, enteritis. Patient will receive basic laboratory values look for any leukocytosis, electrolyte abnormalities. Patient will receive an abdominal CT scan. Patient will receive IV fluids, Zofran, morphine, Bentyl. Patient will be reevaluated. All radiologic examinations were read, reviewed by the emergency department attending. From these reads, a plan of care will be put in place. Patient's laboratory values showed no leukocytosis, patient white blood count was 8.5, hemoglobin was 17.6, patient was given 1 L normal saline. Patient's chemistries were unremarkable, creatinine is within normal limits at 0.97. Lipase was negative. Patient's urinalysis was negative for infection, CT scan of the abdomen pelvis showed diffuse circumferential wall thickening and inflammatory changes of small bowel loops in the right mid abdomen and right lower quadrant. There is thickening of the adjacent cecum. Inflammatory bowel disease should be ruled out. Small amount of free fluid in the pelvis. Fatty infiltration liver. Patient did get seen by Dr. Gerber, I did reach out to him, I spoke with him on the phone. Dr. Gerber believes that this can be taken care of outpatient. He does have history of this bowel inflammation. Patient will be given IV steroids here. He will be placed on Cipro, Flagyl, prednisone. Patient will be placed on a short course of pain medicine. He is instructed to follow-up outpatient. All questions were answered, patient is stable for discharge. Patient was given strict return precaution to return for worsening abdominal pain, fever chills nausea or vomiting. Patient stable for discharge. <Dr. Elpidio Hook, DO - Last Filed: 08/16/23 13:20> [facility] Narrative Medical decision making narrative: Differential diagnosis includes however is not limited to: Colitis, diverticulitis, enteritis, prolapsed rectum, bowel obstruction Patient appears to be in mild distress secondary to abdominal pain. Patient's vital signs are stable. Presenting to the emergency department for abdominal pain, does have history of colitis, enteritis. Patient will receive basic laboratory values look for any leukocytosis, electrolyte abnormalities. Patient will receive an abdominal CT scan. Patient will receive IV fluids, Zofran, morphine, Bentyl. Patient will be reevaluated. All radiologic examinations were read, reviewed by the emergency department attending. From these reads, a plan of care will be put in place. Patient's laboratory values showed no leukocytosis, patient white blood count was 8.5, hemoglobin was 17.6, patient was given 1 L normal saline. Patient's chemistries were unremarkable, creatinine is within normal limits at 0.97. Lipase was negative. Patient's urinalysis was negative for infection, CT scan of the abdomen pelvis showed diffuse circumferential wall thickening and inflammatory changes of small bowel loops in the right mid abdomen and right lower quadrant. There is thickening of the adjacent cecum. Inflammatory bowel disease should be ruled out. Small amount of free fluid in the pelvis. Fatty infiltration liver. Patient did get seen by Dr. Gerber, I did reach out to him, I spoke with him on the phone. Dr. Gerber believes that this can be taken care of outpatient. He does have history of this bowel inflammation. Patient will be given IV steroids here. He will be placed on Cipro, Flagyl, prednisone. Patient will be placed on a short course of pain medicine. He is instructed to follow-up outpatient. All questions were answered, patient is stable for discharge. Patient was given strict return precaution to return for worsening abdominal pain, fever chills nausea or vomiting. Patient stable for discharge. This patient was seen with a PA/SPEEDOMETER MECHANIC Individually assessed they patient including history and physical. I have reviewed everything on the chart that is available and agree with the documentation provided by the PA/SPEEDOMETER MECHANIC including discussion about the assessment, treatment plan, discussion, and return precautions. 28-year-old male presenting with abdominal pain. He does have a history of colitis and enteritis. He sees Dr. Barrow. Patient medicated with IV fluids, morphine, Zofran, Bentyl. Lab work was obtained and was fairly normal. CT of the abdomen pelvis shows diffuse circumferential thickening of the small bowel loops and thickened cecum. Patient was discussed with Dr. Wesley who recommended treatment with Cipro, Flagyl, prednisone, Percocet. Patient is feeling much better on reevaluation he states he will be able to fill his medications before he goes to the long-term. Return precautions were discussed. Lab Data Labs: Laboratory Results - last 24 hr 08/16/23 08/16/23 11:43 12:45 WBC 8.5 RBC 6.27 H Hgb 17.6 H Hct 50.8 MCV 81.0 MCH 28.1 MCHC 34.6 RDW Std Deviation 37.7 RDW Coeff of Jennifer 12.9 Plt Count 264 MPV 9.4 Immature Gran % (Auto) 0.400 Neut % (Auto) 55.1 Lymph % (Auto) 26.0 [place] % (Auto) 11.3 H Eos % (Auto) 6.4 H Baso % (Auto) 0.8 Absolute Neuts (auto) 4.7 Absolute Lymphs (auto) 2.22 Nucleated RBC % 0 Sodium 138 Potassium 3.6 Chloride 104 Carbon Dioxide 29.0 Anion Gap 5 BUN 14 Creatinine 0.97 Estim Creat Clear Calc 153.33 Est GFR (MDRD) Af Amer 119 Est GFR (MDRD) Non-Af 98 BUN/Creatinine Ratio 14.4 Glucose 97 Lactic Acid 1.0 Calcium 9.3 Total Bilirubin 1.00 AST 18 ALT 32 Alkaline Phosphatase 89 Total Protein 7.7 Albumin 4.0 Globulin 3.7 Albumin/Globulin Ratio 1.1 Lipase 26 Urine Color Yellow Urine Clarity Sl. Cloudy Urine pH 6.5 Ur Specific [place] 1.015 Urine Protein 30 H Urine Glucose (UA) Normal Urine Ketones 15 H Urine Occult Blood Negative Urine Nitrite Negative Urine Bilirubin 1 H Urine Urobilinogen 1 H Ur Leukocyte Esterase 25 H Urine RBC 0 SEEN Urine WBC 0-5 SEEN Ur Squamous Epith Cells 0-5 SEEN Urine Bacteria 0 SEEN Urine Mucus 0 SEEN Radiography Diagnostic Testing: Clinical Impression(s) from Imaging Studies Abdomen/Pelvis CT 08/16/23 11:38 IMPRESSION: Diffuse circumferential wall thickening and inflammatory changes of small bowel loops in the right mid abdomen and right lower quadrant. There is thickening of the adjacent cecum. Inflammatory bowel disease should be ruled out. Small amount of free fluid in the pelvis. Fatty infiltration of the liver. Electronically Signed: Elijah Carvajal MD at 12:35 EDT Reading Location ID and State: [address] [place] [address] , Service support , Discharge Plan Triage Chief Complaint: Abd Pain ED Midlevel Provider: Brien Blackburn ED Provider: Elpidio Hook Dx/Rx/DC Orders Clinical Impression: Colitis, Inflammatory bowel disease Instructions: ED Understanding Colitis Prescriptions: New ciprofloxacin HCl [Cipro] 500 mg tablet 500 mg PO BID Qty: 20 0RF metronidazole 500 mg tablet 500 mg PO TID 10 Days Qty: 30 0RF oxycodone-acetaminophen [Percocet] 5-325 mg tablet 1 tab PO Q8H PRN (Reason: pain) 3 Days Qty: 10 0RF ondansetron 4 mg tablet,disintegrating 4 mg PO Q8H PRN PRN (Reason: Nausea) Qty: 10 0RF prednisone 20 mg tablet 20 mg PO DAILY Qty: 14 0RF No Action quetiapine 400 mg tablet extended release 24 hr 400 mg PO QHS haloperidol 5 mg tablet 5 mg PO QHS omeprazole 10 mg capsule,delayed release(DR/EC) 10 mg PO DAILY ciprofloxacin HCl [Cipro] 500 mg tablet 500 mg PO BID Qty: 14 0RF Primary Care Provider: Care Physician,No Primary Referrals: Friend,Devendra, DO [Med Staff - Active Staff] - Care Physician,No Primary [Primary Care Provider] - Activity Restrictions/Additional Instructions: You will be placed on 2 separate antibiotics, take these until empty. You are also take 2 weeks of prednisone. This Zofran and Percocet is as needed. You need to follow-up outpatient with Dr. Gerber. Return for any worsening pain, fever, chills, nausea or vomiting, blood in stool. Do not drink alcohol while taking these antibiotics. Print Language: Vincentian Disposition Disposition: Home, Self Care
--- NOTE | 2023-08-16 11:38 | CT_ITS ---
STUDY: CT ABDOMEN AND PELVIS WITH CONTRAST REASON FOR EXAM: Male, 28 years old. Abdominal pain RADIATION DOSAGE (If Supplied By Facility): CTDIvol = ( 14.74 ) mGy, DLP = ( 1241.84 ) mGycm TECHNIQUE: Transaxial images were obtained from the dome of the diaphragm to the symphysis pubis without oral contrast. IV 100mL Isovue-370 was administered. Sagittal and coronal images were reconstructed. Individualized dose optimization techniques were used for this CT. COMPARISON: Comparison is made with prior study dated June 26, 2023. FINDINGS: The visualized lung bases are unremarkable. The visualized portions of the heart are within normal limits. There is decreased attenuation of the liver consistent with steatosis. Normal gallbladder and extrahepatic biliary system. Normal spleen. Normal pancreas. Normal bilateral adrenal glands. Normal right kidney. Normal left kidney. Normal visualized stomach. There is diffuse circumferential wall thickening and inflammatory changes with separation of the small bowel loops in the right lower quadrant. There is also evidence of a thickening of the adjacent cecum. Inflammatory bowel disease such as Crohn''s disease should be ruled out. There are surgical clips in the region of the appendix consistent with a prior appendectomy. Normal abdominal aorta. Normal inferior vena cava. Normal retroperitoneum. Nonspecific increased markings in the mesenteric fat at the level of the root of the mesentery. Mild degree of diffuse bladder wall thickening although the bladder is not completely distended. Small amount of free fluid in the pelvis. Normal abdominal wall. Straightening of the normal lumbar lordosis. CT/Abdomen/Pelvis W IV Cont ONLY IMPRESSION: Diffuse circumferential wall thickening and inflammatory changes of small bowel loops in the right mid abdomen and right lower quadrant. There is thickening of the adjacent cecum. Inflammatory bowel disease should be ruled out. Small amount of free fluid in the pelvis. Fatty infiltration of the liver. Electronically Signed: Elijah Carvajal MD at 12:35 EDT ,
[2023-08-16] MEDS: Dicyclomine 20 MG/2 ML Vial IM (11:51)
[2023-08-16] MEDS: Ondansetron 4 MG/2 ML Vial IV (11:51)
[2023-08-16] MEDS: 0.9% Normal Saline (1000mL) 1,000 ML 999 ML IV (11:51)
[2023-08-16] MEDS: Morphine 4 MG/ML Syringe IV ×2 (11:51→12:53)
[2023-08-16 12:02] LABS: Absolute Lymphocyte Count 2.22 X10^3/uL (0.83-4.51); Absolute Neutrophil Count 4.7 X10^3/uL (2.0-7.7); Basophil# 0.07 X10^3/uL; Basophil% 0.8 % (0-1); Eosinophil# 0.55 X10^3/uL; Eosinophils% 6.4 % (0-5); Hematocrit 50.8 % (40-54); Hemoglobin 17.6 g/dL (13.0-16.5); Lymphocyte # 2.22 X10^3/ul (0.83-4.51); Mean Corp Hgb Conc 34.6 g/dL (32-36); Mean Corpuscular Hgb 28.1 pg (27.0-32.0); Mean Platelet Vol. 9.4 fl (6.2-12.0); Monocyte# 0.96 X10^3/uL; Monocyte% 11.3 % (0-10); NRBC Flagged by Analyzer 0 % (0-5); Neutrophil % 55.1 % (47-70); Platelet Count 264 K/mm3 (150-450); RBC Distribution Width CV 12.9 % (11.6-14.6); RBC Distribution Width SD 37.7 fl (35.1-43.9); Red Blood Count 6.27 M/mm3 (4.6-6.2); White Blood Count 8.5 K/mm3 (4.4-11.0)
[2023-08-16 12:17] LABS: ALB/GLOB Ratio 1.1 RATIO (0.9-2.4); AST(SGOT) 18 U/L (15-37); Alanine Aminotransfer ALT/SGPT 32 U/L (16-61); Alkaline Phosphatase 89 U/L (45-117); Anion Gap 5 (5-15); BUN 14 mg/dL (7-18); BUN/Creat Ratio 14.4 RATIO (10-20); Calcium,Total 9.3 mg/dL (8.5-10.1); Chloride 104 mmol/L (98-107); Creatinine, Serum 0.97 mg/dL (0.70-1.30); EST Glomerular Filtration Rate 98 mL/min (>60); Est Glom Filt Rate - Afr Amer 119 mL/min (>60); Estimated Creatinine Clearance 153.33 ml/min; Globulin 3.7 g/dL (2.2-4.2); Glucose 97 mg/dL (74-106); Lipase 26 U/L (13-75); Potassium 3.6 mmol/L (3.5-5.1); Protein, Total 7.7 g/dL (6.4-8.2); Sodium Level 138 mmol/L (136-145)
[2023-08-16 12:55] LABS: Bacteria 0 SEEN /hpf (None Seen); Mucous, Urine 0 SEEN /hpf (<or=2+); Red Blood Cells-Urine 0 SEEN /hpf (0-5)
[2023-08-16 12:56] VITALS: BP 140/72; PULSE 80; RESP 16; O2SAT 98
[2023-08-16 12:56] LABS: Color, Urine Yellow (Yellow); Glucose, Dipstick Normal (Normal); Ketone-Dipstick 15 mg/dl (Negative); Leukocyte Esterase-Dipstick 25 /ul (Negative); Nitrite-Dipstick Negative (Negative); Occult Blood-Urine Negative /ul (Negative); Protein-Dipstick 30 mg/dl (Negative); Specific Gravity, Urine 1.015 (1.002-1.030); Urine Bilirubin Dipstick 1 mg/dL (Negative); Urine Clarity Sl. Cloudy (Clear); Urine Urobilinogen 1 mg/dl (Normal); Urine pH 6.5 (5.0 - 8.0)
[2023-08-16] MEDS: Ciprofloxacin 500 MG Tablet PO (13:01)
[2023-08-16] MEDS: MethylPREDNISolone 125 MG/2 ML Vial 60 MG IV (13:01)
[2023-08-16] MEDS: metroNIDAZOLE 500 MG Tablet PO (13:01)
[2023-08-16 13:05] LABS: Squamous Epithelial Cells - UA 0-5 SEEN /hpf (0-5); White Blood Cells 0-5 SEEN /hpf (0-5)
[2023-08-16 13:40] VITALS: BP 120/68; PULSE 72; RESP 14; TEMP 36.6; O2SAT 99
== END 2023-08-16 13:52 | disposition home or self-care (01) ==
PROVIDERS: Nurse Practitioner; Emergency Provider Student in an Organized Health Care Education/Training Program; Visit Provider Student in an Organized Health Care Education/Training Program
DX: K52.9 Noninfective gastroenteritis and colitis, unspecified (principal); F20.9 Schizophrenia, unspecified; F17.210 Nicotine dependence, cigarettes, uncomplicated; Z79.899 Other long term (current) drug therapy; Z90.49 Acquired absence of other specified parts of digestive tract
CPT/HCPCS: 74177; 80053; 81001; 83605; 83690; 85025; 96361; 96372; 96374; 96375; 96376; 99284; J7030; Q9967; A4216; J2405

== ENCOUNTER 2023-10-20 13:45 | Emergency (ER) | payer MEDICAID, SELFPAY ==
[2023-10-20 13:45] VITALS: BP 112/77; PULSE 106; RESP 22; TEMP 35.5; O2SAT 97; BMI 34.9
--- NOTE | 2023-10-20 13:57 | CT_ITS ---
EXAM: CT ABDOMEN AND PELVIS WITH INTRAVENOUS CONTRAST CLINICAL INDICATION: abd pain TECHNIQUE: Helically acquired images were obtained of the abdomen and pelvis with intravenous contrast. This CT exam was performed using one or more of the following dose reduction techniques: automated exposure control, adjustment of the mA and/or kV according to patient size, and/or use of iterative reconstruction technique. CONTRAST: 100mL Isovue 370 RADIATION DOSE: CTDIvol = 22.98 mGy, DLP = 1374.97 mGy-cm COMPARISON: 5 FINDINGS: LOWER THORAX: Unremarkable. Lung bases are clear. No cardiomegaly. No significant pericardial effusion. ABDOMEN: LIVER: Unremarkable. Homogeneous. No focal mass. GALLBLADDER AND BILE DUCTS: Unremarkable. No calcified gallstones. No gallbladder distention or wall edema. No intra- or extrahepatic biliary ductal dilation. PANCREAS: Unremarkable. No focal cystic or solid mass. SPLEEN: Unremarkable. Normal size without focal cystic or solid mass. ADRENALS: Unremarkable. No nodules. KIDNEYS AND URETERS: Unremarkable. Normal renal size and position. No hydronephrosis. STOMACH AND BOWEL: Mild prominence of the small bowel with terminal ileum small bowel thickening suggesting terminal ileitis. Evidence for diverticulosis but no diverticulitis. No stomach or bowel distention. PELVIS: APPENDIX: Appendectomy changes. BLADDER: Unremarkable. REPRODUCTIVE: Unremarkable as visualized. No mass. ABDOMEN and PELVIS: INTRAPERITONEAL SPACE: Mesenteric free fluid in trace abdominal ascites. No free air. BONES/JOINTS: Unremarkable. No suspicious lytic or blastic abnormality. SOFT TISSUES: Unremarkable. No discrete abdominal or pelvic wall hernia. VASCULATURE: Unremarkable. Abdominal aorta is non-dilated. LYMPH NODES: Unremarkable. No enlarged lymph nodes. CT/Abdomen/Pelvis W IV Cont ONLY IMPRESSION: 1. Mesenteric free fluid in trace abdominal ascites. 2. Mild prominence of the small bowel with terminal ileum small bowel wall thickening suggesting terminal ileitis. Electronically Signed: Sinan Salguero MD at 15:49 EDT ,
--- NOTE | 2023-10-20 13:58 | ED.VIS.GI ---
HPI HPI - GI History of Present Illness Chief Complaint: Abd Pain Informant: patient Abdominal Pain/Flank Pain Onset: Today and Yesterday Context: Gradual Onset Timing: Continuous Quality: Cramping Location: Diffuse Current Severity: Mild Maximum Severity: Mild Worsened by: Nothing Relieved by: Nothing Nausea/Vomiting/Emesis GI Symptom: Positive for Nausea; Negative for Vomiting Onset: Today and Yesterday Severity: Mild Diarrhea/Melena/Hematochezia GI Symptom: Positive for Diarrhea; Negative for Melena or Hematochezia Onset: Today and Yesterday Stool Quality: Positive for Loose Severity: Mild Associated Symptoms Associated Symptoms: Negative for Dysuria, Frequency, Hematuria or Urgency Narrative Narrative: 28-year-old male history of schizoaffective disorder and prior appendectomy. Complaining of recurrent abdominal pain started last night associate with nausea and diarrhea today. Denies any fever. No dysuria. Has had this before in the last several months. He was hospitalized had both upper and lower endoscopy and there was no diagnosis of inflammatory bowel disease. Prior similar symptoms: Yes Recent Illness/Hospitalization: Yes [facility] Medical History Bipolar disorder Anxiety Smoker Asthma Enteritis Vasovagal near-syncope Colitis Abdominal pain, acute Schizo affective schizophrenia Home Medications ?Medication ?Instructions ?Recorded ?Last Taken ?Type quetiapine 400 mg tablet,extended 400 mg PO QHS 11/16/22 06/25/23 History release 24 hr omeprazole 10 mg capsule,delayed 10 mg PO DAILY 06/26/23 06/26/23 History release ciprofloxacin HCl 500 mg tablet 500 mg PO BID #14 tabs 06/28/23 Unknown Rx (Cipro) ciprofloxacin HCl 500 mg tablet 500 mg PO BID #20 tabs 08/16/23 Unknown Rx (Cipro) haloperidol 5 mg tablet 5 mg PO QHS 08/16/23 Unknown History metronidazole 500 mg tablet 500 mg PO TID 10 days #30 tabs 08/16/23 Unknown Rx ondansetron 4 mg disintegrating 4 mg PO Q8H PRN PRN Nausea #10 tabs 08/16/23 Unknown Rx tablet oxycodone-acetaminophen 5 mg-325 1 tab PO Q8H PRN pain 3 days #10 08/16/23 Unknown Rx mg tablet (Percocet) tabs prednisone 20 mg tablet 20 mg PO DAILY #14 tabs 08/16/23 Unknown Rx ondansetron 4 mg disintegrating 4 mg PO Q6H PRN nausea and 10/20/23 Unknown Rx tablet vomiting #10 tabs Allergy/AdvReac Type Severity Reaction Status Date / Time Penicillins Allergy Hives Verified 10/20/23 13:45 Sulfa (Sulfonamide Allergy Hives Verified 10/20/23 13:45 Antibiotics) Family History Brother Crohn's disease Surgical History History of appendectomy Social History Smoking Status: Current every day smoker tobacco type: cigarettes ROS ROS ED ROS Narrative Abdominal pain. Nausea. No vomiting. Diarrhea. Review of Systems ROS Unobtainable: Denies due to encephalopathy Constitutional Constitutional ED: Denies chills or fever(s) ENT ENT ED: Denies ear pain Cardiovascular Cardiovascular: Denies chest pain Respiratory/Chest Respiratory/Chest: Denies cough or dyspnea Gastrointestinal Gastrointestinal: Reports abdominal pain, diarrhea and nausea; Denies constipation, melena or vomiting Genitourinary Genitourinary ED: Denies dysuria or hematuria Musculoskeletal Musculoskeletal: Denies arthralgias, back pain, myalgias or neck pain Integumentary Denies abscess, Abrasions or rash Neurologic Neurologic: Denies headache(s) Psychiatric Psychiatric: Denies anxiety Endocrine Endocrinology: Denies polydipsia Hematologic/Lymphatic Hematologic/Lymphatic: Denies easy bleeding, easy bruising or lymphadenopathy Allergic/Immunologic Allergic/Immunologic ED: Denies mouth swelling, tongue swelling or urticaria EXAM Physical Exam Narrative Exam Narrative: Well-appearing 28-year-old male. Vital signs stable afebrile. He does not look septic or toxic. H EENT exam mild dry mucous membranes. Neck nontender no lymphadenopathy. Lungs clear to auscultation bilaterally. Heart tachycardic rate of 105 no murmur. Abdomen soft. Nondistended normal bowel sounds. Diffusely tender no peritoneal signs. No hernia or mass. Moving all 4 extremities. Nontender no edema. Neurologically is awake and alert. Answering questions and following commands. Const Vital Signs: 10/20/23 13:45 07/21/24 15:45 Temperature 96 F L Temperature Source Temporal Pulse Rate 106 H 57 L Respiratory Rate 22 H 16 Blood Pressure 112/77 123/66 H Blood Pressure Mean 88 85 Pulse Ox 97 92 Oxygen Delivery Method Room Air Room Air Positive well nourished and well developed; Negative for cachectic, contractures or unkempt General Appearance ED: well developed and NAD; Negative for unkempt, cachectic, contractures or pallor Nutritional Appearance: Negative for cachectic HEENT Reports dry mucous membranes; Denies moist mucous membranes normocephalic and atraumatic; Negative for trauma or tenderness Mouth ED: Yes dry mucous membranes Mouth: dry mucous membranes Eyes PERRL and EOMs intact bilaterally General Eye ED: Negative for pale conjunctiva, scleral icterus or other Neck no lymphadenopathy, supple and no JVD General: Negative for tenderness Carotids: Negative for other Lymph Lymphatic: Negative for other Resp normal respiratory effort and clear to auscultation bilaterally Effort and Inspection: Negative for respiratory distress Auscultation: Negative for rales, rhonchi, wheezes or diminished lung sounds Cardio regular rhythm, S1 normal heart sound, S2 normal heart sound and no murmurs; Negative for regular rate Rate: tachycardic GI non-distended and no masses; Negative for non-tender Inspection: Negative for abdominal distention Auscultation: normoactive bowel sounds Palpation: soft and tender; Negative for guarding, hernia, mass, pulsatile mass or rebound tenderness present Back/Spine no CVA tenderness General Back: Negative for CVA tenderness Cervical Spine: Negative for cervical spine tenderness Thoracic Spine / Upper Back: Negative for thoracic spinal tenderness Lumbar Spine / Lower Back: Negative for lumbar spinal tenderness Coccyx: Negative for other Extremity full ROM General Extremety ED: Negative for edema, tenderness or other findings General Extremity: Negative for edema or other findings Neuro CN's II-XII intact bilaterally, moves all extremities and no sensory deficits noted Sensorium / Orientation: alert, oriented to person, oriented to place and oriented to time; Negative for orientation impaired, confused, lethargic or stuporous Motor Exam: strength 5/5 throughout; Negative for general weakness or strength abnormal Psych mental status grossly normal and thought process normal Appearance: Negative for unkempt Attitude: No agitated Mood & Affect: Negative for depressed, anxious or tearful Skin no wounds General Skin Exam: Negative for jaundice or pallor Lesions: no lesions Rashes: no rashes MDM MDM MDM Narrative Medical decision making narrative: 28-year-old male with abdominal pain nausea and diarrhea. No vomiting. Recurrent history of this. Prior upper and lower scopes per the patient showed no signs of inflammatory bowel disease. Has had a prior appendectomy. CAT scan labs are pending. IV morphine for pain. IV fluids for dehydration and Zofran for nausea. Repeat exam patient is doing well at 3:[address] results. His pain is better. His nausea is better. Patient doing well at for 3 PM. Be discharged home. Outpatient follow-up with GI fluids and rest. Zofran as needed for nausea. History & Record Review Discussion w/independent historian: Patient Additional record(s) reviewed:: Prior inpatient record, Prior outpatient record, Prior ED visit and Prior labs Lab Data Attestation: I reviewed the patient's lab results. Lab results narrative: CBC shows white count 9.5. H&H 17.8 and 49. Platelets 268 electrolytes show potassium 3.2. Gap 9. Normal BUN of 12 and creatinine of 1. Glucose 120. Liver enzymes unremarkable. Lipase normal at 21.. Labs: Laboratory Results - last 24 hr 10/20/23 14:20 WBC 11.5 H RBC 6.30 H Hgb 17.8 H Hct 49.0 MCV 77.8 L MCH 28.3 MCHC 36.3 H RDW Std Deviation 34.9 L RDW Coeff of Jennifer 12.4 Plt Count 268 MPV 9.3 Immature Gran % (Auto) 0.300 Neut % (Auto) 70.7 H Lymph % (Auto) 15.8 L Harding % (Auto) 11.1 H Eos % (Auto) 1.8 Baso % (Auto) 0.3 Absolute Neuts (auto) 8.1 H Absolute Lymphs (auto) 1.82 Nucleated RBC % 0 Sodium 137 Potassium 3.2 L Chloride 105 Carbon Dioxide 23.0 Anion Gap 9 BUN 12 Creatinine 1.01 Estim Creat Clear Calc 145.09 Est GFR (MDRD) Af Amer 113 Est GFR (MDRD) Non-Af 94 BUN/Creatinine Ratio 11.9 Glucose 120 H Calcium 8.8 Total Bilirubin 1.30 H AST 13 L ALT 29 Alkaline Phosphatase 93 Total Protein 7.2 Albumin 3.8 Globulin 3.4 Albumin/Globulin Ratio 1.1 Lipase 21 Radiography Diagnostic Testing: Clinical Impression(s) from Imaging Studies Abdomen/Pelvis CT 10/20/23 13:57 IMPRESSION: 1. Mesenteric free fluid in trace abdominal ascites. 2. Mild prominence of the small bowel with terminal ileum small bowel wall thickening suggesting terminal ileitis. Electronically Signed: Sinan Salguero MD at 15:49 EDT Reading Location ID and State: [facility] / [place] , Service support , Discharge Plan Triage Chief Complaint: Abd Pain ED Provider: Remington Tidwell Dx/Rx/DC Orders Clinical Impression: Abdominal pain, Diarrhea, History of schizoaffective disorder, Hx of appendectomy Instructions: ED Abdominal Pain Unkn Cause Male... Prescriptions: New ondansetron 4 mg tablet,disintegrating 4 mg PO Q6H PRN (Reason: nausea and vomiting) Qty: 10 0RF No Action quetiapine 400 mg tablet extended release 24 hr 400 mg PO QHS haloperidol 5 mg tablet 5 mg PO QHS ciprofloxacin HCl [Cipro] 500 mg tablet 500 mg PO BID Qty: 20 0RF metronidazole 500 mg tablet 500 mg PO TID 10 Days Qty: 30 0RF oxycodone-acetaminophen [Percocet] 5-325 mg tablet 1 tab PO Q8H PRN (Reason: pain) 3 Days Qty: 10 0RF ondansetron 4 mg tablet,disintegrating 4 mg PO Q8H PRN PRN (Reason: Nausea) Qty: 10 0RF prednisone 20 mg tablet 20 mg PO DAILY Qty: 14 0RF omeprazole 10 mg capsule,delayed release(DR/EC) 10 mg PO DAILY ciprofloxacin HCl [Cipro] 500 mg tablet 500 mg PO BID Qty: 14 0RF Primary Care Provider: Care Physician,No Primary Referrals: Devendra Gerber DO [Med Staff - Active Staff] - As soon as possible Care Physician,No Primary [Primary Care Provider] - Activity Restrictions/Additional Instructions: Plenty of fluids and rest. Increase diet slowly as tolerated. Zofran as needed for nausea. If the diarrhea does not and in the next 48 to 72 hours she can start using Imodium for the diarrhea. Follow-up with Dr. Gerber for further evaluation of possible inflammatory bowel disease. Print Language: Iranian Disposition Disposition: Home, Self Care
[2023-10-20 14:30] LABS: Absolute Lymphocyte Count 1.82 X10^3/uL (0.83-4.51); Absolute Neutrophil Count 8.1 X10^3/uL (2.0-7.7); Basophil# 0.04 X10^3/uL; Basophil% 0.3 % (0-1); Eosinophil# 0.21 X10^3/uL; Eosinophils% 1.8 % (0-5); Hemoglobin 17.8 g/dL (13.0-16.5); Lymphocyte # 1.82 X10^3/ul (0.83-4.51); Lymphocyte % 15.8 % (19-41); Mean Corp Hgb Conc 36.3 g/dL (32-36); Mean Corpuscular Hgb 28.3 pg (27.0-32.0); Mean Corpuscular Volume 77.8 fL (80-94); Mean Platelet Vol. 9.3 fl (6.2-12.0); Monocyte# 1.28 X10^3/uL; Monocyte% 11.1 % (0-10); NRBC Flagged by Analyzer 0 % (0-5); Neutrophil # 8.13 X10^3/uL (2.7-7.7); Neutrophil % 70.7 % (47-70); Platelet Count 268 K/mm3 (150-450); RBC Distribution Width CV 12.4 % (11.6-14.6); RBC Distribution Width SD 34.9 fl (35.1-43.9); White Blood Count 11.5 K/mm3 (4.4-11.0)
[2023-10-20] MEDS: morphine 8 MG/ML Syringe 6 MG IV (14:41)
[2023-10-20] MEDS: 0.9% Normal Saline (1000mL) 1,000 ML 999 ML IV (14:41)
[2023-10-20 14:42] LABS: ALB/GLOB Ratio 1.1 RATIO (0.9-2.4); AST(SGOT) 13 U/L (15-37); Alanine Aminotransfer ALT/SGPT 29 U/L (16-61); Albumin, Serum 3.8 g/dL (3.2-5.0); Alkaline Phosphatase 93 U/L (45-117); Anion Gap 9 (5-15); BUN 12 mg/dL (7-18); BUN/Creat Ratio 11.9 RATIO (10-20); Calcium,Total 8.8 mg/dL (8.5-10.1); Chloride 105 mmol/L (98-107); Creatinine, Serum 1.01 mg/dL (0.70-1.30); EST Glomerular Filtration Rate 94 mL/min (>60); Est Glom Filt Rate - Afr Amer 113 mL/min (>60); Estimated Creatinine Clearance 145.09 ml/min; Globulin 3.4 g/dL (2.2-4.2); Glucose 120 mg/dL (74-106); Lipase 21 U/L (13-75); Potassium 3.2 mmol/L (3.5-5.1); Protein, Total 7.2 g/dL (6.4-8.2); Sodium Level 137 mmol/L (136-145)
[2023-10-20] MEDS: Ondansetron 4 MG/2 ML Vial IV (14:42)
[2023-10-20 15:45] VITALS: BP 123/66; PULSE 57; RESP 16; O2SAT 92
[2023-10-20 16:15] VITALS: BP 123/66; PULSE 57; RESP 16; TEMP 36.9; O2SAT 92
== END 2023-10-20 16:16 | disposition home or self-care (01) ==
PROVIDERS: Emergency Provider Emergency Medicine; Visit Provider Emergency Medicine
DX: R10.9 Unspecified abdominal pain (principal); F25.9 Schizoaffective disorder, unspecified; R19.7 Diarrhea, unspecified; Z90.49 Acquired absence of other specified parts of digestive tract; F17.210 Nicotine dependence, cigarettes, uncomplicated; Z79.899 Other long term (current) drug therapy
CPT/HCPCS: 74177; 80053; 83690; 85025; 96361; 96374; 96375; 99282; J7030; Q9967; J2405